=== PATIENT | female | born 1950 | race Caucasian/White ===

== ENCOUNTER 2020-12-25 11:42 | Outpatient (CLI) | payer MEDICARE, OTHER, SELFPAY ==
--- NOTE | 2020-12-25 11:52 | XR_ITS ---
WS: [id number] PROCEDURE: XR chest 2V* [id number] CLINICAL INFORMATION: COUGH COMPARISON: None. FINDINGS: Heart: Cardiomegaly. Lungs: Hyperinflation. Moderate chronic emphysematous changes. Aortic calcification. Tortuous thoraci c aorta. No acute pulmonary infiltrates. Bones: Mild thoracic curve convex left. Mild thoracic kyphosis. Postoperative changes cervical thorac ic junction. XR/XR chest 2V* [id number] IMPRESSION: 1. Moderate chronic emphysematous changes with hyperinflation. 2. No acute pulmonary infiltrates. 3. Cardiomegaly. 4. Mild thoracic curve with mild thoracic kyphosis.
== END 2020-12-25 11:43 | disposition home or self-care (01) ==
PROVIDERS: Visit Provider Family Medicine
DX: R05 Cough (principal); I51.7 Cardiomegaly; M40.294 Other kyphosis, thoracic region
CPT/HCPCS: 71046

== ENCOUNTER 2021-02-03 13:06 | Outpatient (CLI) | payer MEDICARE, OTHER, SELFPAY ==
--- NOTE | 2021-02-03 13:11 | XR_ITS ---
WS: [id number] FOOT LEFT TECHNIQUE: 3 views of the left foot CLINICAL INFORMATION: PAIN IN LEFT ANKLE AND JOINTS OF LEFT FOOT COMPARISON: None. FINDINGS: Osteopenia. Normal metatarsals. Mild degenerative narrowing IP joints. Normal navicular. Mild soft ti ssue edema. Slight lucency at the base of the fifth metatarsal suspicious for tiny nondisplaced fract ure. XR/XR foot LT min 3V* [id number] IMPRESSION: Mild soft tissue edema. Suggestion of a tiny nondisplaced fracture at the base of the fifth metatarsal. Recommend interval follow-up.
--- NOTE | 2021-02-03 13:11 | XR_ITS ---
WS: [id number] ANKLE LEFT TECHNIQUE: 3 views of the left ankle CLINICAL INFORMATION: PAIN IN LEFT ANKLE AND JOINTS OF LEFT FOOT COMPARISON: None. FINDINGS: Diffuse moderate soft tissue edema. Soft tissue edema worse about the lateral malleolus. Normal media l and lateral malleolus. Normal talar dome. XR/XR ankle LT min 3V* [id number] IMPRESSION: 1. Soft tissue edema worse about the lateral malleolus. No acute ankle fractur es. 2. Nondisplaced fracture base of the fifth metatarsal as described on the foot radiograph
== END 2021-02-03 13:07 | disposition home or self-care (01) ==
PROVIDERS: Visit Provider Family Medicine
DX: R60.0 Localized edema (principal); S92.355A Nondisplaced fracture of fifth metatarsal bone, left foot, initial encounter for closed fracture; X58.XXXA Exposure to other specified factors, initial encounter
CPT/HCPCS: 73610; 73630

== ENCOUNTER → 2022-02-25 10:01 | Outpatient (BNVA) | payer MEDICARE, OTHER, SELFPAY | PROVIDERS: PCP Family Medicine; Referring Provider Family Medicine; Visit Provider Podiatrist Foot & Ankle Surgery | DX: M76.62 Achilles tendinitis, left leg (principal); M79.672 Pain in left foot; M92.62 Juvenile osteochondrosis of tarsus, left ankle; M72.2 Plantar fascial fibromatosis | CPT/HCPCS: 73630; 99204 ==

== ENCOUNTER → 2024-10-02 11:14 | Outpatient (BNVA) | payer MEDICARE, OTHER, SELFPAY | PROVIDERS: PCP Family Medicine; Visit Provider Family Medicine | DX: I10 Essential (primary) hypertension (principal); E78.00 Pure hypercholesterolemia, unspecified; E55.9 Vitamin D deficiency, unspecified; E53.8 Deficiency of other specified B group vitamins; E87.1 Hypo-osmolality and hyponatremia; N18.32 Chronic kidney disease, stage 3b; D63.1 Anemia in chronic kidney disease | CPT/HCPCS: 80053; 82306; 82607; 83540; 84439; 84443; 85025 ==

== ENCOUNTER 2025-07-02 14:00 | Outpatient (CLI) | payer MEDICARE, SELFPAY | END 2025-07-02 14:01 | disposition home or self-care (01) | PROVIDERS: PCP Family Medicine; Visit Provider Family Medicine | DX: R41.82 Altered mental status, unspecified (principal); E87.1 Hypo-osmolality and hyponatremia; N18.32 Chronic kidney disease, stage 3b; I10 Essential (primary) hypertension | CPT/HCPCS: 80053; 81000; 84439; 84443; 85025; 87086 ==

== ENCOUNTER 2025-07-05 16:58 | Emergency (ER) | payer MEDICARE, SELFPAY ==
--- OUTSIDE RECORDS SUMMARY | 2025-06-28 23:20 | XMS_ITS | Encounter Summary ---
Author Organization [facility] Address [address] [place] [address] Care Team Providers Care Tail Edger Name Role Phone Unavailable Primary Care Provider Unavailabl e Encounter Details Date Type Department Care Team (Latest Contact Info) Description 06/29/2025 12:20 AM CDT - 06/29/2025 11:59 PM CDT Hospital Encounter [facility] Emergency Medical Services [address] [phone] Ambulance, [address] [address] Discharge Disposition: Home or Self Care Social History Tobacco Use Types Packs/Day Years Used Date Smoking Tobacco: Never Assessed Comments Unknown Sex and Gender Information Value Date Recorded Sex Assigned at Not on file 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
[2025-07-05 17:03] VITALS: BP 141/92; PULSE 97; RESP 17; TEMP 36.4; O2SAT 94; BMI 24.7
--- OUTSIDE RECORDS SUMMARY | 2025-07-05 17:06 | XMS_ITS | Clinical Summary ---
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
--- OUTSIDE RECORDS SUMMARY | 2025-07-05 17:06 | XMS_ITS | Clinical Summary ---
Author Organization [facility] Address [address] [address] Phone Care Team Providers Care Fishing Rod Assembler Name Role Phone Unavailable Primary Care Provider Unavailabl e Encounters Date Type Department Care Team Description 06/29/2025 12:20 AM CDT - 06/29/2025 11:59 PM CDT Hospital Encounter [facility] Emergency Medical Services [address] [phone] Ambulance, [facility] Discharge Disposition: Home or Self Care from Last 3 Months Social History Tobacco Use Types Packs/Day Years Used Date Smoking Tobacco: Never Assessed Comments Unknown Sex and Gender Information Value Date Recorded Sex Assigned at Not on file 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 Gender Identity Not on file Sexual Orientation Not on file Plan of Treatment Health Maintenance Due Date Last Done Comments DTAP/TDAP/TD VACCINES (1 - Tdap) 1969 BREAST CANCER SCREENING 1990 COLORECTAL SCREENING 1995 Colorectal Cancer Screening 1995 FIT-DNA Q 3 years 1995 FIT/FOBT Q 1 year 1995 Flex Sig/CT Colonography Q 5 years 1995 PNEUMOCOCCAL VACCINE 50+ YEA RS (1 of 1 - PCV) 2000 ZOSTER VACCINE (1 of 2) 2000 OSTEOPOROSIS SCREENING 2015 [place] Prev entative Visit/Annual Wellness Visit 08/30/2024 INFLUENZA VACCINE (#1) 2025 COVID-19 Vaccine ( season) 2025, 10/30/2020 RSV VACCINE (60+ or ) (1 - 1-dose 75+ series) 2025 Insurance [facility] [place] [address] [facility]
--- OUTSIDE RECORDS SUMMARY | 2025-07-05 17:06 | XMS_ITS | Encounter Summary ---
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
--- NOTE | 2025-07-05 18:18 | W.ED.WEAKNES ---
HPI - Weakness General: Chief complaint: Weakness Stated complaint: lethargy / incontinent Time Seen by Provider: 07/05/25 18:00 History of Present Illness: 74-year-old female with a history of chronic kidney disease, dementia, COPD, depression and hypertension who presents emergency room with concerns for generalized weakness and some mild confusion over her baseline. says she does have some dementia at baseline but has been having some staring spells lately. They tried to get lab at clinic but could not get it and they felt that she was dehydrated so sent her to the emergency room. No fevers. No vomiting. No focal motor deficits. Related Data Home Medications ?Medication ?Instructions ?Recorded ?Confirmed albuterol sulfate 90 mcg/actuation 2 puff inhalation Q6H PRN 02/25/22 07/02/25 aerosol inhaler (Ventolin HFA) alprazolam 0.5 mg tablet 0.5 mg PO DAILY 02/25/22 07/02/25 fluticasone fur. 100 mcg-umeclid 1 inh inhalation DAILY 02/25/22 07/02/25 62.5 mcg-vilant 25 mcg inhalat.powder (Trelegy Ellipta) magnesium gluconate 500 mg tablet 500 mg PO TID 02/25/22 07/02/25 Previous Rx's ?Medication ?Instructions ?Recorded cyclobenzaprine 10 mg tablet See Rx Instructions .Route 08/26/24 .COMPLEX #90 tabs atorvastatin 10 mg tablet 10 mg PO QDAY #90 tabs 12/18/24 aripiprazole 2 mg tablet 2 mg PO DAILY #90 tabs 01/08/25 omeprazole 40 mg capsule,delayed See Rx Instructions .Route 01/19/25 release .COMPLEX #90 caps vitamin D3 125 mcg (5,000 1 cap PO DAILY #90 caps 02/15/25 unit)-vitamin K2 100 mcg capsule amlodipine 5 mg tablet 5 mg PO DAILY #90 tabs 02/26/25 Held on 06/12/25. Instructions: Guidelines gabapentin 600 mg tablet 600 mg PO TID #270 tabs 03/05/25 hydrochlorothiazide 12.5 mg tablet 12.5 mg PO DAILY #90 tabs 03/05/25 venlafaxine 75 mg tablet 225 mg (3 x 75 mg) PO DAILY #90 04/23/25 tabs hydrocodone 10 mg-acetaminophen 1 tab PO Q6H PRN pain (scale score 05/24/25 325 mg tablet 7-10) 30 days #120 tabs metoprolol tartrate 50 mg tablet 25 mg (1/2 x 50 mg) PO BID #90 tabs 05/25/25 cefdinir 300 mg capsule 300 mg PO BID 10 days #20 caps 07/02/25 Allergies Allergy/AdvReac Type Severity Reaction Status Date / Time Sulfa (Sulfonamide Allergy Mild Dizzy Verified 07/02/25 11:27 Antibiotics) Latex, Natural Rubber Allergy ADR/ALGY-Fl Verified 07/02/25 11:27 ushing Review of Systems Narrative: Constitutional symptoms: Negative except as documented in HPI. Skin symptoms: Negative except as documented in HPI. Eye symptoms: Negative except as documented in HPI. ENMT symptoms: Negative except as documented in HPI. Respiratory symptoms: Negative except as documented in HPI. Cardiovascular symptoms: Negative except as documented in HPI. Gastrointestinal symptoms: Negative except as documented in HPI. Genitourinary symptoms: Negative except as documented in HPI. Musculoskeletal symptoms: Negative except as documented in HPI. Neurologic symptoms: Negative except as documented in HPI. Psychiatric symptoms: Negative except as documented in HPI. Endocrine symptoms: Negative except as documented in HPI. PFSH ED PFSH: Medical History (Updated 07/05/25 @ 20:00 by Shanae Nichols MD) Vitamin D deficiency DJD (degenerative joint disease), cervical DDD (degenerative disc disease), thoracic Vitamin B12 deficiency CKD stage 3b, GFR 30-44 ml/min Anemia in chronic kidney disease Anxiety Nicotine dependence, cigarettes, uncomplicated Chronic gastritis without bleeding Hypomagnesemia COPD (chronic obstructive pulmonary disease) Hyponatremia Encounter for chronic pain management legacy patient from pain clinic; on hydrocodone for chronic back pain Chronic lower back pain DDD w/ peripheral neuropathy Pain management contract signed Major depression, chronic Hypercholesteremia HTN (hypertension) Surgical History History of rectal surgery 8.16 for rectal prolapse Hx of colonoscopy with polypectomy 7.7.22 tubular adenoma--f/u 5 yrs--Dr. Julian Parikh Hx of cervical spine surgery anterior cervical fusion 2008 Hx of total hysterectomy with removal of both tubes and ovaries Hx of appendectomy Family History Sister Rheumatoid arthritis Grandmother Colon cancer Social History Smoking and tobacco/nicotine status: current every day tobacco/nicotine user cigarettes Packs smoked per day: 1 Quit status (tobacco/nicotine): not considering quitting Second hand smoke exposure: Yes Alcohol intake: never Substance/Drug Use: never Household members: spouse and other Details: granddaughter Housing: House Marital status: Marital status details: no living children--son in MVA; daughter of COVID Number of children: 2 Highest education level completed: High School Graduate Current occupational status: retired 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 Skin: Warm, dry. Head: Normocephalic, atraumatic. Neck: Supple, trachea midline. Eye: Extraocular movements are intact. Ears, nose, mouth and throat: mucosa moist. Cardiovascular: Regular, Normal peripheral perfusion. Respiratory: Lungs are clear to auscultation, respirations are non-labored, breath sounds are equal, Symmetrical chest wall expansion. Gastrointestinal: Soft, Nontender, Non distended Musculoskeletal: Normal ROM, no deformity. Neurological: Alert and oriented, No focal neurological deficit observed. Psychiatric: Cooperative, appropriate mood & affect. Course Vital Signs: Vital signs: Vital Signs Temperature 97.6 F 07/05/25 17:03 Pulse Rate 97 07/05/25 17:03 Respiratory Rate 17 07/05/25 17:03 Blood Pressure 141/92 07/05/25 17:03 Pulse Oximetry 94 07/05/25 17:03 Oxygen Delivery Me thod Room Air 07/05/25 17:03 MDM - Weakness Medical Decision Making Medical decision making: Patient's reason for coming to the emergency room generalized weakness Social determinants retired, I reviewed the patient's medical record. 74-year-old female with a history of chronic kidney disease, dementia, COPD, depression and hypertension I reviewed the patient's current home meds Alternate historians: provides most of the history. Differential diagnosis for patient presenting with generalized weakness including but not limited to and based on the above HPI, review of systems and physical exam: Sepsis. Dehydration. Renal failure. Electrolyte abnormalities. Anemia. Congestive heart failure. Hypotension. Coronary syndrome. Hepatitis. Cirrhosis. Infections such as pneumonia, urinary tract infection, [place]ick bourne illness, Cellulitis, Viral infections including influenza and Covid-19. Workup: labwork and lab/exam driven imaging ordered to evaluate, rule in and rule out above pathologies. CT head: No acute intracranial process. No intracranial hemorrhage, no evidence of infarct. No evidence of acute fracture. This was reviewed and interpreted by myself the emergency room physician. I also reviewed the radiology report. Lab Review: Laboratory results were reviewed and interpreted by myself the emergency room physician. Mild leukocytosis. No anemia. BUN and creatinine are at 32 and 1.8 which is slightly above her baseline which normally runs around 1.42 1.5. Assessment of risk: Level of risk: Moderate risk. Multiple comorbidities and age. Reexamination: Patient remained stable. No increased work of breathing. No altered mental status. No focal motor deficits. is comfortable with taking her home after fluids. Assessment and plan: Dehydration Dementia ? 1 L normal saline bolus in the emergency room. - Discharged home - Discussed plan with patient. Answered any questions. - Evaluation and treatment of this problem were appropriate in the emergency setting. Lab Data 07/05/25 18:35 07/05/25 18:[address] 07/05/25 18:32 IMPRESSION: No acute intracranial abnormality. Laboratory Results WBC 13.14 10^3/uL (3.29-11.43) H 07/05/25 18:35 RBC 5.60 10^6/uL (3.85-5.65) 07/05/25 18:35 Hgb 16.30 g/dL (11.27-16.99) 07/05/25 18:35 Hct 48.2 % (36-47) H 07/05/25 18:35 MCV 86.1 fl (85-98) 07/05/25 18:35 MCH 29.1 pg (27-33) 07/05/25 18:35 MCHC 33.8 g/dL (30-55) 07/05/25 18:35 RDW 13.1 % (12.1-15.1) 07/05/25 18:35 Plt Count 276 10^3/cmm (157-399) 07/05/25 18:35 MPV 11.5 fL (7.4-10.4) H 07/05/25 18:35 Neut % (Auto) 74.7 % 07/05/25 18:35 Lymph % (Auto) 17.0 % 07/05/25 18:35 [place] % (Auto) 6.8 % 07/05/25 18:35 Eos % (Auto) 0.5 % 07/05/25 18:35 Baso % (Auto) 0.6 % 07/05/25 18:35 Neut # (Auto) 9.81 10^3/uL (1.8-7.7) H 07/05/25 18:35 Lymph # (Auto) 2.2 10^3/uL (0.8-4.8) 07/05/25 18:35 [place] # (Auto) 0.9 10^3/uL (0.2-0.9) 07/05/25 18:35 Eos # (Auto) 0.1 10^3/uL (0.0-0.8) 07/05/25 18:35 Baso # (Auto) 0.1 10^3/uL (0.0-0.1) 07/05/25 18:35 Nucleated RBC % (auto) 0 % 07/05/25 18:35 Nucleated RBCs # 0.0 /100WBC 07/05/25 18:35 Sodium 136 mmol/L (136-145) 07/05/25 18:35 Potassium 3.7 mmol/L (3.5-5.1) 07/05/25 18:35 Chloride 93 mmol/L (98-107) L 07/05/25 18:35 Carbon Dioxide 25 mmol/L (22-29) 07/05/25 18:35 Anion Gap 21.7 (5-19) H 07/05/25 18:35 BUN 32 mg/dL (8-23) H 07/05/25 18:35 Creatinine 1.8 mg/dL (0.5-0.9) H 07/05/25 18:35 GFR Calculation Not Reportable 07/05/25 18:35 Glucose 105 mg/dL (65-115) 07/05/25 18:35 Calculated Osmolality 289 mOsm/kg (285-295) 07/05/25 18:35 Lactic Acid 1.8 mmol/L (0.5-2.2) 07/05/25 18:35 Calcium 10.8 mg/dL (8.5-10.5) H 07/05/25 18:35 Total Bilirubin 0.8 mg/dL (0.15-1.2) 07/05/25 18:35 AST 18 U/L (0-32) 07/05/25 18:35 ALT 11 U/L (0-33) 07/05/25 18:35 Alkaline Phosphatase 124 U/L (35-105) H 07/05/25 18:35 C-Reactive Protein 75.8 mg/L (0.0-4.9) H 07/05/25 18:35 Total Protein 7.8 g/dL (6.6-8.7) 07/05/25 18:35 Albumin 4.5 g/dL (3.5-5.2) 07/05/25 18:35 Globulin 3.3 g/dL (1.3-4.6) 07/05/25 18:35 Urine Color Yellow (Yellow) 07/05/25 18:45 Urine Appearance Clear (CLEAR) 07/05/25 18:45 Urine pH 5.5 (5-7) 07/05/25 18:45 Ur Specific [place] 1.022 (1.005-1.030) 07/05/25 18:45 Urine Protein 1+ (Negative) A 07/05/25 18:45 Urine Glucose (UA) Negative (Normal) 07/05/25 18:45 Urine Ketones Trace (Negative) 07/05/25 18:45 Urine Blood Negative (Negative) 07/05/25 18:45 Urine Nitrate Negative (Negative) 07/05/25 18:45 Urine Bilirubin Negative (Negative) 07/05/25 18:45 Urine Urobilinogen 1.0 mg/dL (Negative) 07/05/25 18:45 Ur Leukocyte Esterase Negative (Negative) 07/05/25 18:45 Urine RBC 0-2 /hpf (0-2) 07/05/25 18:45 Urine WBC 0-5 /hpf (0-5) 07/05/25 18:45 Ur Squamous Epith Cells 0-5 /hpf (0-5) 07/05/25 18:45 Amorphous Sediment Not Reportable 07/05/25 18:45 Urine Bacteria None seen /hpf (NONE) 07/05/25 18:45 Hyaline Casts 27.28 /lpf 07/05/25 18:45 Influenza A (PCR) Negative (Negative) 07/05/25 18:37 Influenza Type B (PCR) Negative (Negative) 07/05/25 18:37 RSV (PCR) Negative (Negative) 07/05/25 18:37 SARS-CoV-2 (PCR) Negative (Negative) 07/05/25 18:37 All radiology interpretation(s) finalized by discharge Discharge Plan Discharge Patient Disposition: Home Clinical Impression: Weakness, Dehydration, Dementia Condition: Stable Prescriptions: No Action vitamin D3-vitamin K2 125 mcg (5,000 unit)-100 mcg capsule 1 cap PO DAILY Qty: 90 3RF cefdinir 300 mg capsule 300 mg PO BID 10 Days Qty: 20 0RF alprazolam 0.5 mg tablet 0.5 mg PO DAILY magnesium gluconate 500 mg tablet 500 mg PO TID Trelegy Ellipta 100-62.5-25 mcg blister with device 1 inh inhalation DAILY albuterol sulfate [Ventolin HFA] 90 mcg/actuation HFA aerosol inhaler 2 puff inhalation Q6H PRN cyclobenzaprine 10 mg tablet See Rx Instructions .ROUTE .COMPLEX Qty: 90 3RF Dose Instruction: TAKE 1 TABLET AT BEDTIME NEEDED MUSCLE SPASMS Rx Instructions: TAKE 1 TABLET AT BEDTIME NEEDED MUSCLE SPASMS atorvastatin 10 mg tablet 10 mg PO QDAY Qty: 90 2RF aripiprazole 2 mg tablet 2 mg PO DAILY Qty: 90 3RF omeprazole 40 mg capsule,delayed release(DR/EC) See Rx Instructions .ROUTE .COMPLEX Qty: 90 3RF Dose Instruction: TAKE 1 CAPSULE BY MOUTH DAILY Rx Instructions: TAKE 1 CAPSULE BY MOUTH DAILY amlodipine 5 mg tablet 5 mg PO DAILY Qty: 90 3RF hydrochlorothiazide 12.5 mg tablet 12.5 mg PO DAILY Qty: 90 3RF gabapentin 600 mg tablet 600 mg PO TID Qty: 270 3RF venlafaxine 75 mg tablet 225 mg PO DAILY Qty: 90 3RF hydrocodone-acetaminophen 10-325 mg tablet 1 tab PO Q6H PRN (Reason: pain (scale score 7-10)) 30 Days Qty: 120 0RF metoprolol tartrate 50 mg tablet 25 mg PO BID Qty: 90 3RF Discharge Orders: Discharge ED (Routine); Ordered 07/05/25 Ordered By: Shanae Nichols Referrals: Marizol Rivera MD [Primary Care Provider, Family Practice] Discharge Diet: Usual diet Discharge Activity: Increase activity as tolerated Patient Instructions: Dehydration (ED), Opioid Safety, Pain Management, Patient Portal & Lex Instructions Activity Restrictions/Additional Instructions: Thank you for choosing [facility] for your healthcare needs today. You have been screened and evaluated and felt safe for discharge. Health conditions do change or evolve sometimes and as such it is important that you follow up with your Primary Doctor to be re checked, 3-5 days is a general good time frame for follow up. You are always welcome to return to the ED for re assessment if your symptoms are worsening or you have new concerns Print Language: Peruvian Coding Level of Care Code ED Fire Fighting Equipment Specialist for Randa Sam
--- NOTE | 2025-07-05 18:32 | CTR_ITS ---
PROCEDURE INFORMATION: Exam: CT Head Without Contrast Exam date and time: 07/05/2025 7:25 PM Age: 74 years old Clinical indication: Altered mental status/memory loss and weakness, extremity; Confusion or disorientation; PT reports PT has been intermittently confused since Wednesday. PT has also had little intake since Wednesday. TECHNIQUE: Imaging protocol: Computed tomography of the head without contrast. Radiation optimization: All CT scans at this facility use at least one of these dose optimization techniques: automated exposure control; mA and/or kV adjustment per patient size (includes targeted exams where dose is matched to clinical indication); or iterative reconstruction. COMPARISON: No relevant prior studies available. RADIATION DOSE METRICS: Total DLP (mGy-cm): 977.08 FINDINGS: Brain: Basal cisterns are patent. No hemorrhage, mass effect or extra-axial collection. Scattered hypodensities in the subcortical, deep and periventricular white matter which is nonspecific but can be seen in microangiopathic ischemic changes. Calcification of the pineal gland. No acute intracranial abnormality. Cerebral ventricles: No ventriculomegaly. Paranasal sinuses: Small retention cyst in the left posterior ethmoid sinus otherwise the paranasal sinuses are well pneumatized. Mastoid air cells: Visualized mastoid air cells are well aerated. Orbital cavities: Evidence of bilateral cataract surgery. Bones: Unremarkable. No acute fracture. Soft tissues: Unremarkable. Vasculature: Carotid siphon calcifications. CT/CT head wo con* [id number] IMPRESSION: No acute intracranial abnormality.
[2025-07-05 18:56] LABS: Hematocrit 48.2 % (36-47); Hemoglobin 16.30 g/dL (11.27-16.99); Mean Corpuscular HGB Conc 33.8 g/dL (30-55); Mean Corpuscular Hemoglobin 29.1 pg (27-33); Mean Corpuscular Volume 86.1 fl (85-98); Nucleated Red Blood Cells % 0 %; Platelet Count 276 10^3/cmm (157-399); Red Blood Count 5.60 10^6/uL (3.85-5.65); White Blood Count 13.14 10^3/uL (3.29-11.43)
[2025-07-05 18:58] LABS: Glucose Urine UA Negative (Normal); Nitrate Urine Negative (Negative); Specific Gravity, Urine 1.022 (1.005-1.030)
[2025-07-05 19:12] LABS: Alanine Aminotransferase 11 U/L (0-33); Albumin Level 4.5 g/dL (3.5-5.2); Alkaline Phosphatase 124 U/L (35-105); Blood Urea Nitrogen 32 mg/dL (8-23); Calcium 10.8 mg/dL (8.5-10.5); Carbon Dioxide 25 mmol/L (22-29); Chloride 93 mmol/L (98-107); Creatinine Clr Calc Pharmacy 24.6049; Globulin 3.3 g/dL (1.3-4.6); Glucose 105 mg/dL (65-115); Osmolality Calculated 289 mOsm/kg (285-295); Sodium 136 mmol/L (136-145); Total Protein 7.8 g/dL (6.6-8.7)
[2025-07-05 19:14] LABS: Lactic Sepsis W/Reflex 1.8 mmol/L (0.5-2.2)
[2025-07-05 19:15] LABS: Anion Gap 21.7 (5-19); Aspartate Amino Transferase 18 U/L (0-32); Potassium 3.7 mmol/L (3.5-5.1)
[2025-07-05 19:19] LABS: Slide Review Slide Review Perform
[2025-07-05 19:33] LABS: Respiratory Syncytial Virus Ce NEGATIVE (Negative); SARS-CoV-2 PCR NEGATIVE (Negative)
[2025-07-05 20:58] VITALS: BP 178/119; PULSE 111; RESP 18; O2SAT 95
[2025-07-05 21:40] VITALS: BP 163/96; PULSE 87; RESP 16; O2SAT 93
[2025-07-05 22:22] VITALS: BP 139/96; PULSE 98; RESP 16; O2SAT 95
== END 2025-07-05 22:22 | disposition home or self-care (01) ==
PROVIDERS: Emergency Provider Emergency Medicine; PCP Family Medicine
DX: R53.1 Weakness (principal); E86.0 Dehydration; F03.90 Unspecified dementia, unspecified severity, without behavioral disturbance, psychotic disturbance, mood disturbance, and anxiety; Z11.52 Encounter for screening for COVID-19; F17.210 Nicotine dependence, cigarettes, uncomplicated; J44.9 Chronic obstructive pulmonary disease, unspecified; I12.9 Hypertensive chronic kidney disease with stage 1 through stage 4 chronic kidney disease, or unspecified chronic kidney disease; N18.32 Chronic kidney disease, stage 3b
CPT/HCPCS: 70450; 80053; 81001; 83605; 85025; 86140; 87040; 87637; 99284; J7030

== ENCOUNTER 2025-08-08 11:41 | Inpatient (IN) | payer MEDICARE, SELFPAY ==
[2025-08-08] VITALS (104 sets, daily range): BP systolic 132–171; BP diastolic 86–131; PULSE 87–131; RESP 14–32; TEMP 35.8–36.3; O2SAT 83–98
--- NOTE | 2025-08-08 11:51 | PC.NURSE ---
BG 80 at time of triage
--- NOTE | 2025-08-08 12:07 | ECG_ITS ---
[facility]08 Pat Name: Karina Estes Department: Room: Gender: Female Local Delivery Driver: : [id number] Requested By: John Arango Order Number: [id number] Cooper MD: Humble Patiño M.D. Measurements Intervals Reese Rate: 108 P: 0 WV: 0 QRS: 72 QRSD: 137 T: 245 QT: 404 QTc: 544 Interpretive Statements ATRIAL FIBRILLATION WITH RAPID VENTRICULAR RESPONSE INTRAVENTRICULAR CONDUCTION DELAY [130+ ms QRS DURATION] No previous ECG available for comparison Electronically Signed On 08-09-2025 17:29:18 GLASS WASHER AND CARRIER by Humble Patiño M.D. [email or web address]
--- NOTE | 2025-08-08 12:07 | XR_ITS ---
WS: [id number] XR chest 1V portable [id number] REASON FOR EXAM: syncopa FINDINGS: Mild tortuosity of the thoracic aorta. Increased opacity in both lower hemithoraces which appears to be secondary to bilateral pleural effusions and atelectasis. There may be underlying reticular interstitial lung opacities and mild peribronchial cuffing. Mild degenerative spondylosis in the thoracic spine. XR/XR chest 1V portable [id number] IMPRESSION: Probable bilateral pleural effusion and atelectasis in both lower lobes. There may be additional underlying lung abnormality i.e. pulmonary edema or less like ly pneumonitis.
--- NOTE | 2025-08-08 12:50 | CT_ITS ---
WS: [id number] CT CERVICAL SPINE HISTORY: trauma TECHNIQUE: Contiguous 2.0 mm axial imaging performed through the entire cervical spine. Sagittal and coronal reformats also performed. All CT scans at [facility] use at least one of these dose optimization techniques: automated exposure control; mA and/or kV adjustment per patient size (includes targeted exams where dose is matched to clinical indication); or iterative reconstruction. DLP: 172.57 mGy.cm COMPARISON: None available. Mild curvature and straightening of the cervical lordosis. Anterior cervical fusion with interbody spacer is fused at C5-6. Facet joints are normally aligned. Lateral masses of C1 and C2 are aligned. No cervical spine fracture identified. Moderate foraminal stenosis due to osteophytosis at C6-7. Mild LEFT foraminal stenosis at C4-5 due to osteophyte. Central disc protrusions at C2-3 through C4-5. Calcification in the LEFT vertebral artery at the C4 level. Facet joints are normally aligned. Lung apices are clear. CT/CT cervical spin wo con* [id number] IMPRESSION: 1. No acute cervical spine fracture. 2. Anterior cervical fusion with interbody spacer at C5-6 is intact. 3. Moderate bilateral foraminal stenosis at C6 6 7 and mild on the LEFT at C4- 5.
[2025-08-08 13:06] LABS: Hematocrit 36.3 % (36-47); Hemoglobin 11.40 g/dL (11.27-16.99); Mean Corpuscular HGB Conc 31.4 g/dL (30-55); Mean Corpuscular Hemoglobin 28.8 pg (27-33); Mean Corpuscular Volume 91.7 fl (85-98); Nucleated Red Blood Cells % 0.5 %; Platelet Count 348 10^3/cmm (157-399); Red Blood Count 3.96 10^6/uL (3.85-5.65); White Blood Count 21.18 10^3/uL (3.29-11.43)
[2025-08-08 13:20] LABS: Alanine Aminotransferase 44 U/L (0-33); Albumin Level 3.7 g/dL (3.5-5.2); Alkaline Phosphatase 141 U/L (35-105); Anion Gap 41.0 (5-19); Aspartate Amino Transferase 74 U/L (0-32); Calcium 9.2 mg/dL (8.5-10.5); Chloride 90 mmol/L (98-107); Globulin 2.9 g/dL (1.3-4.6); Glucose 78 mg/dL (65-115); Osmolality Calculated 303 mOsm/kg (285-295); Sodium 133 mmol/L (136-145); Total Protein 6.6 g/dL (6.6-8.7)
[2025-08-08 13:31] LABS: Blood Urea Nitrogen 91 mg/dL (8-23); Carbon Dioxide 9 mmol/L (22-29); Potassium 7.0 mmol/L (3.5-5.1)
--- NOTE | 2025-08-08 13:41 | CT_ITS ---
WS: [id number] CT ABDOMEN AND PELVIS NONCONTRAST HISTORY: Acute renal failure TECHNIQUE: Imaging performed through the abdomen and pelvis. Coronal and sagittal reformats are submitted. All CT scans at [facility] use at least one of these dose optimization techniques: automated exposure control; mA and/or kV adjustment per patient size (includes targeted exams where dose is matched to clinical indication); or iterative reconstruction. DLP: 472.84 mGy.cm COMPARISON: None available. Lower thorax: Small bilateral pleural effusions. Emphysematous changes at the lung bases. Cardiomegaly. Moderate size hiatal hernia. Liver: Normal size liver. No mass or bile duct dilatation. Gallbladder: Normal gallbladder. No pericholecystic fluid or cholelithiasis. No gallbladder wall thickening. Pancreas: Diffuse pancreatic atrophy. Mild stranding adjacent to the pancreas may be related to breathing motion artifact. Spleen: Normal size with granuloma. Adrenal glands: Normal. No mass. Right kidney: Normal size kidney. Mild perinephric stranding. No obstruction. Left kidney: Severe atrophy LEFT kidney. No obstruction. Mild perinephric stranding. Aorta: Moderate to severe atherosclerosis abdominal aorta. Mild dilatation of the abdominal aorta to 2.7 cm. Atherosclerosis continues into the common iliac arteries. There is a small amount of free fluid in the pelvis. GI tract: No GI tract obstruction. The appendix is not identified and may have been surgically removed. No significant diverticular disease. Abdominal wall: Thinning of the abdominal wall musculature. Bilateral inguinal hernias containing fat only. Pelvis: Small amount of free fluid in the pelvis of uncertain etiology. Prior hysterectomy. Osseous structures: Osteopenia. Degenerative disc disease at L4-5. CT/CT kidney stone 08170 IMPRESSION: 1. Small bilateral pleural effusions. 2. Cardiomegaly. 3. Perinephric stranding around each kidney. No renal obstruction. Correlate f or possible urinary tract infection. 4. Severe atrophy LEFT kidney. 5. Small amount of free fluid in the pelvis. 6. No evidence for colitis. No GI tract obstruction.
--- NOTE | 2025-08-08 14:02 | W.ED.RECABL ---
HPI - Recheck/Abnormal Lab/Rx General: Chief Complaint: Recheck/Abnormal Lab/Rx Stated Complaint: AMS, Fall Time Seen by Provider: 08/08/25 11:53 History of Present Illness: 74-year-old female presents to the emergency room with multiple recent falls. Her is with her reports that she has been more altered recently. Has multiple bruises from falls. Patient has known history of chronic kidney disease at baseline and severe dementia. She also has a history of A-fib with RVR. She is not currently on any anticoagulants. She is not able to contribute to history all history as per the . Related Data Home Medications ?Medication ?Instructions ?Recorded ?Confirmed cyclobenzaprine 10 mg tablet 10 mg PO BEDTIME PRN muscle spasms 08/08/25 08/08/25 omeprazole 40 mg capsule,delayed 40 mg PO DAILY 08/08/25 08/08/25 release Previous Rx's ?Medication ?Instructions ?Recorded atorvastatin 10 mg tablet 10 mg PO QDAY #90 tabs 12/18/24 aripiprazole 2 mg tablet 2 mg PO DAILY #90 tabs 01/08/25 vitamin D3 125 mcg (5,000 1 cap PO DAILY #90 caps 02/15/25 unit)-vitamin K2 100 mcg capsule amlodipine 5 mg tablet 5 mg PO DAILY #90 tabs 02/26/25 Held on 06/12/25. Instructions: Guidelines gabapentin 600 mg tablet 600 mg PO TID #270 tabs 03/05/25 hydrochlorothiazide 12.5 mg tablet 12.5 mg PO DAILY #90 tabs 03/05/25 venlafaxine 75 mg tablet 225 mg (3 x 75 mg) PO DAILY #90 04/23/25 tabs metoprolol tartrate 50 mg tablet 25 mg (1/2 x 50 mg) PO BID #90 tabs 05/25/25 hydrocodone 10 mg-acetaminophen 1 tab PO Q6H PRN pain (scale score 07/09/25 325 mg tablet 7-10) 30 days #120 tabs Allergies Allergy/AdvReac Type Severity Reaction Status Date / Time Sulfa (Sulfonamide Allergy Mild Dizzy Verified 07/16/25 15:14 Antibiotics) Latex, Natural Rubber Allergy ADR/ALGY-Fl Verified 07/16/25 15:14 ushing Review of Systems General: Reports: ROS unobtainable due to mental status PFSH ED PFSH: Medical History Vitamin D deficiency DJD (degenerative joint disease), cervical DDD (degenerative disc disease), thoracic Vitamin B12 deficiency CKD stage 3b, GFR 30-44 ml/min Anemia in chronic kidney disease Anxiety Nicotine dependence, cigarettes, uncomplicated Chronic gastritis without bleeding Hypomagnesemia COPD (chronic obstructive pulmonary disease) Hyponatremia Encounter for chronic pain management legacy patient from pain clinic; on hydrocodone for chronic back pain Chronic lower back pain DDD w/ peripheral neuropathy Pain management contract signed Major depression, chronic Hypercholesteremia HTN (hypertension) Surgical History History of rectal surgery 8.16 for rectal prolapse Hx of colonoscopy with polypectomy 7.7.22 tubular adenoma--f/u 5 yrs--Dr. Julian Parikh Hx of cervical spine surgery anterior cervical fusion 2008 Hx of total hysterectomy with removal of both tubes and ovaries Hx of appendectomy Family History Sister Rheumatoid arthritis Grandmother Colon cancer Social History Smoking and tobacco/nicotine status: current every day tobacco/nicotine user cigarettes Packs smoked per day: 1 Quit status (tobacco/nicotine): not considering quitting Second hand smoke exposure: Yes Alcohol intake: never Substance/Drug Use: never Household members: spouse and other Details: granddaughter Housing: House Marital status: Marital status details: no living children--son in MVA; daughter of COVID Number of children: 2 Highest education level completed: High School Graduate Current occupational status: retired 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 Physical Exam HENMT: COMMON NORMALS: normocephalic, atraumatic and hearing grossly normal bilaterally HEAD & SCALP: normocephalic and atraumatic Resp: COMMON NORMALS: normal respiratory effort, No retractions, No use of accessory muscles and clear to auscultation bilaterally AUSCULTATION: clear to auscultation bilaterally Cardio: COMMON NORMALS: regular rate, regular rhythm and No murmurs present (Cardio) RATE: regular rate RHYTHM: regular rhythm GI: COMMON NORMALS: Soft to palpation and No hepatosplenomegaly present AUSCULTATION: Yes normoactive bowel sounds PALPATION: Yes Soft to palpation, No Tenderness to palpation present (GI), No Guarding due to palpation present (GI) and Yes No hepatosplenomegaly present Extremity: COMMON NORMALS: normal to inspection, capillary refill normal, no clubbing, cyanosis or edema, no calf tenderness and no pedal edema OTHER: No acute deformities can move all extremities without any elicitation of pain Skin: OTHER: Hematoma on the face and upper extremities from frequent falls no signs of infection Course Vital Signs: Vital signs: Vital Signs Temperature 97.9 F 08/13/25 04:07 Pulse Rate 96 08/13/25 08:35 Respiratory Rate 24 H 08/13/25 08:30 Blood Pressure 138/89 08/13/25 08:30 Pulse Oximetry 92 08/13/25 08:30 Oxygen Delivery Me thod Nasal Cannula 08/13/25 08:18 Oxygen Flow Rate 6 08/13/25 08:18 MDM - Recheck/Abnormal Lab/Rx Medical Decision Making Medical decision making Social determinants: Patient severely demented unable to provide history I reviewed the patient's medical record. I reviewed the patient's current home meds. Alternate historians: provides all the history as well as reviewing old charts Differential diagnosis: Acute metabolic encephalopathy, advancing dementia, intracranial bleed Lab Review: Acute on chronic renal failure, hyperkalemia hyponatremia. Baseline creatinine 1.5-1.8 Creatinine on admission 14.7 with a BUN of 91 anion gap 41.6 potassium 7. Initial lactic acid 7.7. Imaging: No acute findings on the CT neck head abdomen or pelvis.Chest x-ray shows right lower lobe pneumonia poor chest x-ray due to positioning. Bilateral pleural effusions Assessment of risk Level of risk: High Hospitalization considerations: Admit for acute metabolic encephalopathy secondary to uremia from acute renal failure as well as hyperkalemia and pneumonia Reexamination: Unchanged Assessment and plan: IV fluids given started on antibiotics. Consult nephrology. Treated hyperkalemia with sodium bicarb insulin calcium chloride and albuterol. Discussed with hospitalist and nephrology orders written for admission Lab Data 08/13/25 03:17 08/13/25 03:17 Radiology Impressions Cervical Spine CT 08/08/25 12:50 IMPRESSION: 1. No acute cervical spine fracture. 2. Anterior cervical fusion with interbody spacer at C5-6 is intact. 3. Moderate bilateral foraminal stenosis at C6 6 7 and mild on the LEFT at C4-5. Abdomen/Pelvis CT 08/08/25 13:41 IMPRESSION: 1. Small bilateral pleural effusions. 2. Cardiomegaly. 3. Perinephric stranding around each kidney. No renal obstruction. Correlate for possible urinary tract infection. 4. Severe atrophy LEFT kidney. 5. Small amount of free fluid in the pelvis. 6. No evidence for colitis. No GI tract obstruction. Head CT 08/08/25 14:11 IMPRESSION: No acute intracranial hemorrhage or mass effect. Chest X-Ray 08/09/25 05:35 IMPRESSION: Improving aeration at the lung bases. Liver Ultrasound 08/09/25 12:40 IMPRESSION: No acute findings within limitations of the study. Laboratory Results WBC 21.18 10^3/uL (3.29-11.43) H 08/08/25 12:57 RBC 3.96 10^6/uL (3.85-5.65) 08/08/25 12:57 Hgb 11.40 g/dL (11.27-16.99) 08/08/25 12:57 Hct 36.3 % (36-47) 08/08/25 12:57 MCV 91.7 fl (85-98) 08/08/25 12:57 MCH 28.8 pg (27-33) 08/08/25 12:57 MCHC 31.4 g/dL (30-55) 08/08/25 12:57 RDW 15.0 % (12.1-15.1) 08/08/25 12:57 Plt Count 348 10^3/cmm (157-399) 08/08/25 12:57 MPV 10.3 fL (7.4-10.4) 08/08/25 12:57 Neut % (Auto) 89.4 % 08/08/25 12:57 Lymph % (Auto) 4.2 % 08/08/25 12:57 [place] % (Auto) 5.5 % 08/08/25 12:57 Eos % (Auto) 0.0 % 08/08/25 12:57 Baso % (Auto) 0.2 % 08/08/25 12:57 Neut # (Auto) 18.95 10^3/uL (1.8-7.7) H 08/08/25 12:57 Lymph # (Auto) 0.9 10^3/uL (0.8-4.8) 08/08/25 12:57 [place] # (Auto) 1.2 10^3/uL (0.2-0.9) H 08/08/25 12:57 Eos # (Auto) 0.0 10^3/uL (0.0-0.8) 08/08/25 12:57 Baso # (Auto) 0.0 10^3/uL (0.0-0.1) 08/08/25 12:57 Nucleated RBC % (auto) 0.5 % 08/08/25 12:57 Nucleated RBCs # 0.1 /100WBC 08/08/25 12:57 Specimen Type Arterial 08/08/25 14:10 Sample Site Radial, right 08/08/25 14:10 ABG pH 7.18 (7.35-7.45) L* 08/08/25 14:10 ABG pCO2 21.7 mmHg (35-45) L 08/08/25 14:10 ABG pO2 81.7 mmHg (80.0-100.0) 08/08/25 14:10 ABG PO2/FiO2 Ratio 389 08/08/25 14:10 ABG HCO3 8.1 mmol/L (22-26) L 08/08/25 14:10 ABG O2 Saturation 93.1 08/08/25 14:10 ABG Base Excess -18.4 mmol/L (-2.0-2.0) L 08/08/25 14:10 Justin Test Pos 08/08/25 14:10 A-a O2 Gradient 5.0 mmHg (5-10) 08/08/25 14:10 Hematocrit 35.3 % (37-47) L 08/08/25 14:10 Hgb O2 Saturation 91.6 % (95-100) L 08/08/25 14:10 Carboxyhemoglobin 1.6 %THgb (0.4-20.1) 08/08/25 14:10 Methemoglobin 0.0 % (0.4-1.5) L 08/08/25 14:10 Total Hemoglobin 11.5 g/dL (12-16) L 08/08/25 14:10 Sodium 134.0 mmol/L (131-143) 08/08/25 14:10 Potassium 6.8 mmol/L (3.5-5.0) H 08/08/25 14:10 Glucose 63.0 mg/dL (70-115) L 08/08/25 14:10 Ionized Calcium 1.1 mmol/L (1.1-1.4) 08/08/25 14:10 O2 Delivery Device Room air 08/08/25 14:10 FiO2 21.0 % 08/08/25 14:10 Certified Hearing Instrument Dispenser ID [place] 08/08/25 14:10 Sodium 135 mmol/L (136-145) L 08/08/25 14:05 Potassium 7.1 mmol/L (3.5-5.1) H* 08/08/25 14:05 Chloride 91 mmol/L (98-107) L 08/08/25 14:05 Carbon Dioxide 9 mmol/L (22-29) L 08/08/25 14:05 Anion Gap 42.1 (5-19) H 08/08/25 14:05 BUN 93 mg/dL (8-23) H* 08/08/25 14:05 Creatinine 14.8 mg/dL (0.5-0.9) H* 08/08/25 14:05 GFR Calculation Not Reportable 08/08/25 14:05 Glucose 73 mg/dL (65-115) 08/08/25 14:05 POC Glucose 108 mg/dL (70-110) 08/08/25 15:10 Estimat Average Glucose 111 08/08/25 12:57 Hemoglobin A1c 5.5 % (4.0-6.0) 08/08/25 12:57 Calculated Osmolality 307 mOsm/kg (285-295) H 08/08/25 14:05 Lactic Acid 7.7 mmol/L (0.5-2.2) H* 08/08/25 14:05 Uric Acid 16.3 mg/dL (2.4-5.7) H 08/08/25 12:57 Calcium 9.1 mg/dL (8.5-10.5) 08/08/25 14:05 Total Bilirubin 1.4 mg/dL (0.15-1.2) H 08/08/25 14:05 AST 72 U/L (0-32) H 08/08/25 14:05 ALT 46 U/L (0-33) H 08/08/25 14:05 Alkaline Phosphatase 141 U/L (35-105) H 08/08/25 14:05 Creatine Kinase 119 U/L (26-192) 08/08/25 12:57 Total Protein 6.5 g/dL (6.6-8.7) L 08/08/25 14:05 Albumin 3.7 g/dL (3.5-5.2) 08/08/25 14:05 Globulin 2.8 g/dL (1.3-4.6) 08/08/25 14:05 Procalcitonin 0.63 ng/mL (0-0.5) H 08/08/25 14:05 Salicylates < 0.3 mg/dL (3-10) L 08/08/25 12:57 Hep Bs Antigen Non-reactive (Nonreactive) 08/08/25 12:57 Hep Bs Antibody < 3.5 (11.5-1000) L 08/08/25 12:57 Hepatitis C Antibody Non-reactive (Nonreactive) 08/08/25 12:57 All radiology interpretation(s) finalized by discharge Critical Care Time Critical Care Time: Critical Care Time: Yes Total Critical Care Time: 45 Attestation: The high probability of a clinically significant, sudden or life threatening deterioration of the patient's cardiovascular respiratory renal system(s) required my full and direct attention, intervention and personal management. The critical care time is as shown. This time is in addition to time spent performing any reported procedures but includes the following: [x] Data and vital sign review and interpretation [x] Patient assessment, examination and intervention [x] Documentation [x] Medication orders and management Discharge Plan Discharge Patient Disposition: Admitted As Inpatient Admit Provider: Javad Jones Clinical Impression: Acute kidney injury superimposed on CKD, Anemia in chronic kidney disease, Dementia, Hyperkalemia, High anion gap metabolic acidosis, Pneumonia, Uremia Condition: Stable Coding Level of Care Code ED Science Instructor for Randa Sam
--- NOTE | 2025-08-08 14:11 | CTR_ITS ---
PROCEDURE INFORMATION: Exam: CT Head Without Contrast Exam date and time: 08/08/2025 2:26 PM Age: 74 years old Clinical indication: Altered mental status/memory loss; Additional info: AMS TECHNIQUE: Imaging protocol: Computed tomography of the head without contrast. Radiation optimization: All CT scans at this facility use at least one of these dose optimization techniques: automated exposure control; mA and/or kV adjustment per patient size (includes targeted exams where dose is matched to clinical indication); or iterative reconstruction. COMPARISON: CT head wo con* [id number] 07/05/2025 7:25 PM RADIATION DOSE METRICS: Total DLP (mGy-cm): 785.18 FINDINGS: Brain: No acute intracranial hemorrhage or mass effect. Moderate to extensive nonspecific supratentorial white matter hypoattenuation is seen, most likely chronic microangiopathic changes. Chronic microangiopathy and/or old lacunar infarcts in the thalami. Old right cerebellar lacunar infarct. Cerebral ventricles: Within normal limits for age. Paranasal sinuses: Minimal sinus opacification. Mastoid air cells: Visualized mastoid air cells are well aerated. Bones: Unremarkable. Soft tissues: Within normal limits. CT/CT head wo con* [id number] IMPRESSION: No acute intracranial hemorrhage or mass effect.
[2025-08-08 14:21] LABS: ABG PCO2 21.7 mmHg (35-45); Alveolar-Arterial Oxygen Gradi 5.0 mmHg (5-10); Arterial Blood Gas Hematocrit 35.3 % (37-47); Blood Gas Allen Test Pos; Blood Gas Operator Identificat WALCI; Blood Gas Sample Site Radial, right; Blood Gas Sample Type Arterial; Carboxyhemoglobin 1.6 %THgb (0.4-20.1); Glucose Level-ABG 63.0 mg/dL (70-115); HCO3 ABG 8.1 mmol/L (22-26); Ionized Calcium Level - ABG 1.1 mmol/L (1.1-1.4); Methemoglobin 0.0 % (0.4-1.5); Oxygen Saturation ABG 93.1; PO2 ABG 81.7 mmHg (80.0-100.0); PO2 FiO2 Ratio Arterial Blood 389; Potassium Level - ABG 6.8 mmol/L (3.5-5.0); Sodium Level - ABG 134.0 mmol/L (131-143)
[2025-08-08 14:22] LABS: ABG PH Result 7.18 (7.35-7.45)
[2025-08-08 14:33] LABS: Alanine Aminotransferase 46 U/L (0-33); Albumin Level 3.7 g/dL (3.5-5.2); Alkaline Phosphatase 141 U/L (35-105); Anion Gap 42.1 (5-19); Aspartate Amino Transferase 72 U/L (0-32); Calcium 9.1 mg/dL (8.5-10.5); Chloride 91 mmol/L (98-107); Globulin 2.8 g/dL (1.3-4.6); Glucose 73 mg/dL (65-115); Osmolality Calculated 307 mOsm/kg (285-295); Sodium 135 mmol/L (136-145); Total Protein 6.5 g/dL (6.6-8.7)
[2025-08-08] MEDS: sodium bicarbonate 150 MEQ in dextrose 5% 200 ML 700 MEQ IV (14:39)
[2025-08-08 14:40] LABS: Lactic Sepsis W/Reflex 7.7 mmol/L (0.5-2.2); Potassium 7.1 mmol/L (3.5-5.1)
[2025-08-08 14:41] LABS: Blood Urea Nitrogen 93 mg/dL (8-23); Carbon Dioxide 9 mmol/L (22-29)
[2025-08-08] MEDS: cefTRIAXone 1,000 mg SDV 1000 MG IVP (14:42)
[2025-08-08] MEDS: calcium chloride 10% Syr 10 mL 2 GM IVP (14:48)
--- NOTE | 2025-08-08 14:56 | PM.HP ---
Providers/Chief Complaint Primary Care Provider: Marizol Rivera MD Chief Complaint: AMS, Fall History of Present Illness Karina Estes is a 74 year old female with past medical history of dementia, hypertension, Chronic back pain was brought into the ER today by her because of worsening mentation over the last 1 month. But worse over the last 2 to 3 days. As per the patient's oral intake have decreased over the last 2 to 3 days, she is not getting out of bed since today morning hence he brought her to the ER. Patient to him have not complained of any nausea, vomiting, headache, dizziness. He does state he was given an antibiotic by the PCP for some kind of an infection possibly UTI. In the ER she was found to have a white count 21,000, potassium of 7 1, creatinine of 14.8 with a BUN of 93 with a lactic acid of 7.7. Review of Systems General: Reports: ROS unobtainable due to mental status Medications/Allergies Home Medications ?Medication ?Instructions ?Recorded ?Confirmed ?Last Taken ?Type atorvastatin 10 mg tablet 10 mg PO QDAY #90 tabs 12/18/24 08/08/25 Unknown Rx aripiprazole 2 mg tablet 2 mg PO DAILY #90 tabs 01/08/25 08/08/25 Unknown Rx vitamin D3 125 mcg (5,000 1 cap PO DAILY #90 caps 02/15/25 08/08/25 Unknown Rx unit)-vitamin K2 100 mcg capsule amlodipine 5 mg tablet 5 mg PO DAILY #90 tabs 02/26/25 08/08/25 Unknown Rx Held on 06/12/25. Instructions: Guidelines gabapentin 600 mg tablet 600 mg PO TID #270 tabs 03/05/25 08/08/25 Unknown Rx hydrochlorothiazide 12.5 mg tablet 12.5 mg PO DAILY #90 tabs 03/05/25 08/08/25 Unknown Rx venlafaxine 75 mg tablet 225 mg (3 x 75 mg) PO DAILY #90 04/23/25 08/08/25 Unknown Rx tabs metoprolol tartrate 50 mg tablet 25 mg (1/2 x 50 mg) PO BID #90 tabs 05/25/25 08/08/25 Unknown Rx hydrocodone 10 mg-acetaminophen 1 tab PO Q6H PRN pain (scale score 07/09/25 08/08/25 Unknown Rx 325 mg tablet 7-10) 30 days #120 tabs cyclobenzaprine 10 mg tablet 10 mg PO BEDTIME PRN muscle spasms 08/08/25 08/08/25 Unknown History omeprazole 40 mg capsule,delayed 40 mg PO DAILY 08/08/25 08/08/25 Unknown History release Allergies Allergy/AdvReac Type Severity Reaction Status Date / Time Sulfa (Sulfonamide Allergy Mild Dizzy Verified 07/16/25 15:14 Antibiotics) Latex, Natural Rubber Allergy ADR/ALGY-Fl Verified 07/16/25 15:14 ushing PFSH Acute PFSH: Medical History (Updated 08/08/25 @ 16:30 by Javad Jones MD) Vitamin D deficiency DJD (degenerative joint disease), cervical DDD (degenerative disc disease), thoracic Vitamin B12 deficiency CKD stage 3b, GFR 30-44 ml/min Anemia in chronic kidney disease Anxiety Nicotine dependence, cigarettes, uncomplicated Chronic gastritis without bleeding Hypomagnesemia COPD (chronic obstructive pulmonary disease) Hyponatremia Encounter for chronic pain management legacy patient from pain clinic; on hydrocodone for chronic back pain Chronic lower back pain DDD w/ peripheral neuropathy Pain management contract signed Major depression, chronic Hypercholesteremia HTN (hypertension) Surgical History History of rectal surgery 8.16 for rectal prolapse Hx of colonoscopy with polypectomy 7.7.22 tubular adenoma--f/u 5 yrs--Dr. Julian Parikh Hx of cervical spine surgery anterior cervical fusion 2008 Hx of total hysterectomy with removal of both tubes and ovaries Hx of appendectomy Family History Sister Rheumatoid arthritis Grandmother Colon cancer Social History Smoking and tobacco/nicotine status: current every day tobacco/nicotine user cigarettes Packs smoked per day: 1 Quit status (tobacco/nicotine): not considering quitting Second hand smoke exposure: Yes Alcohol intake: never Substance/Drug Use: never Household members: spouse and other Details: granddaughter Housing: House Marital status: Marital status details: no living children--son in MVA; daughter of COVID Number of children: 2 Highest education level completed: High School Graduate Current occupational status: retired 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 Vitals/I&O/Wt Last Vital Signs Temp 97.3 F L 08/08/25 11:38 Pulse 110 H 08/08/25 14:04 Resp 16 08/08/25 14:04 BP 145/86 08/08/25 11:38 Pulse Ox 95 08/08/25 14:04 O2 Del Method Room Air 08/08/25 14:04 Physical Exam Narrative: General: No acute distress, awake alert x 1, dehydrated HEENT: PERRLA, pupils bilaterally equal and reactive Chest: Normal vesicular breath sounds, occasional rhonchi, equal good air entry bilaterally CVS: S1-S2 regular, no murmurs, tachycardia, no gallops, no rubs Abdomen: Soft, nontender, no organomegaly, bowel sounds present Neuro: No focal deficits, no facial deformity, moving all limbs Data 08/08/25 12:57 08/08/25 14:05 Micro: Microbiology 08/08/25 14:05 Blood Culture - Preliminary Blood SPECIMEN COLLECTED 08/08/25 14:07 Blood Culture - Preliminary Blood SPECIMEN COLLECTED A&P Assessment and plan 1. Acute renal failure: 2. CKD stage 3b, GFR 30-44 ml/min: 3. Hyperkalemia: 4. High anion gap metabolic acidosis: 5. Sepsis: 6. Pneumonia: 7. HTN (hypertension): 8. Anemia in chronic kidney disease: 9. Delirium: 10. COPD (chronic obstructive pulmonary disease): 11. Uremia: Plan: 74-year-old with history of dementia presents to the ER today because of worsening mentation found to have acute renal failure with hyperkalemia and metabolic acidosis with concerns for sepsis Acute renal failure: Does seem to have baseline CKD. Baseline creatinine around 1.8. Currently 14.7. Associated with hyperkalemia and hindgut metabolic acidosis, uremia. Nephrology consulted from the ER. Repeat treatment with D10 and 10 units insulin, calcium gluconate 2 g stat along with Kayexalate 30 mg oral one-time. BMP every 4 hours. If potassium does not improve in next 2 to 3 hours we will possibly need dialysis. Family is agreeable. Will consult surgery if needed. Check ABG. If metabolic acidosis then will start on bicarb drip at 75 cc an hour. Watch for fluid overload. Pugh catheterization. Strict input output charting. Medical reconciliation done for nephrotoxic drugs. CT of the pelvis appreciated. No concern for obstructive nephropathy. Sepsis: SIRS: Tachycardic, Leukocytosis Source: Pneumonia End organ damage: Acute infectious encephalopathy, acute renal failure Lactic acid elevated. Patient did not receive full 30 mL/kg BW given concerns for renal failure. Bicarb drip as above. Monitor blood pressures. Keep mean artery pressure 65 mmHg. Blood culture, urine culture, MRSA swab, trend procalcitonin, check bacterial antigen. Empirically start on IV ceftriaxone 1 g daily for now. Goal blood pressure less than 140/90 mmHg. Patient takes amlodipine, metoprolol at home. Hold amlodipine for now. Continue with metoprolol. Depending on blood pressures can start. CODE STATUS: Discussed detail with the patient at bedside. Has been a DPOA. Full code Renal dialysis diet Protonix OPD prophylaxis. De-escalate antibiotics as per culture results. PDMP PDMP Reviewed: Not Reviewed Attestations Medical Necessity Statement*: Admission for more than 2 midnights for management of acute renal failure associated with hyperkalemia, uremia, high anion gap metabolic acidosis, sepsis delirium Critical Care Time: The high probability of a clinically significant, sudden or life threatening deterioration of the patient's [renal] system(s) required my full and direct attention, intervention and personal management. The critical care time is as shown. This time is in addition to time spent performing any reported procedures but includes the following: [x] Data and vital sign review and interpretation [x] Patient assessment, examination and intervention [x] Documentation [x] Medication orders and management Critical Care Time (min): 65 Coding Level of Care Code Critical Care >/= 30 minutes Critical care time (in minutes): 65 The high probability of a clinically significant, sudden or life threatening deterioration, as referenced in this documentation, required my full and direct attention, intervention and personal management. The critical care time shown is in addition to time spent performing any reported separately billable procedures and includes the following: [x] Data and vital sign review and interpretation [x] Patient assessment, examination and intervention [x] Medication orders and management [x] Patient/Family updates as able [x] Care Coordination and Documentation. Other Coding Information This patient has a high probability of clinically significant, sudden or life threatening deterioration of the patient's (neurological/pulmonary/cardiac/renal/ID/endocrine) systems required my full, direct attention, the highest level of physician preparedness for urgent intervention and personal management. I managed/supervised life or organ supporting interventions that required frequent physician assessment. I devoted my full attention in the ICU to the direct care of this patient for the period of time indicated above. Time I spent with family or surrogate(s) is included only if the patient was incapable of providing necessary information or participating in decision making. This time includes the following services provided: Telemetry review Hemodynamic interpretation, assessment and management Review and interpretation of CXR Review and interpretation of lab values Review and interpretation of microbiologic data and culture results Review of medications and administration Review and interpretation of Nutrition requirements and management Discussion of management with other consultants and services Clinical update to family members Diagnoses Acute renal failure N17.9 CKD stage 3b, GFR 30-44 ml/min N18.32 Hyperkalemia E87.5 High anion gap metabolic acidosis E87.29 Sepsis A41.9 Pneumonia J18.9 HTN (hypertension) I10 Anemia in chronic kidney disease N18.9; D63.1 Delirium R41.0 Altered mental status type: delirium COPD (chronic obstructive pulmonary disease) J44.9 Uremia N19
[2025-08-08] MEDS: insulin regular-human 100 units/1 mL 10 UNIT IVP ×2 (15:17→16:59)
--- NOTE | 2025-08-08 15:17 | PM.CONSULT ---
Providers/Reason For Consult Consulting Physician/Specialty*: omid catalan md/ telenephrology Reason for Consult*: Acute kidney injury and hyperkalemia metabolic acidosis Requesting Physician: Dr Cyr Attending Physician: Dr Cyr Primary Care Provider: Marizol Rivera MD History of Present Illness History of Present Illness Karina Estes is a 74 year old female patient has history of CKD stage IIIb baseline pending 1.8 was 1.5 has an atrophic left kidney, has arthritis, vitamin B12 deficiency, anemia anxiety COPD depression hypertension hyperlipidemia. Patient has history of total hysterectomy, rectal surgery and appendectomy. Patient's daughter required dialysis and then . Patient presented today with weakness lethargy and falls over the last week and patient was found to have metabolic acidosis increased anion gap lactic acidosis, acute kidney injury and hyperkalemia. Patient has not been eating over the last couple days has been weak lethargic and altered mental status. Per family patient was not taking any NSAIDs Review of Systems Narrative: Weak, lethargic not eating, not feeling well nonspecific complaints confused decreased urine output. Poor appetite denied diarrhea per the family no headaches. Medications/Allergies Home Medications ?Medication ?Instructions ?Recorded ?Confirmed ?Last Taken ?Type atorvastatin 10 mg tablet 10 mg PO QDAY #90 tabs 12/18/24 08/08/25 Unknown Rx aripiprazole 2 mg tablet 2 mg PO DAILY #90 tabs 01/08/25 08/08/25 Unknown Rx vitamin D3 125 mcg (5,000 1 cap PO DAILY #90 caps 02/15/25 08/08/25 Unknown Rx unit)-vitamin K2 100 mcg capsule amlodipine 5 mg tablet 5 mg PO DAILY #90 tabs 02/26/25 08/08/25 Unknown Rx Held on 06/12/25. Instructions: Guidelines gabapentin 600 mg tablet 600 mg PO TID #270 tabs 03/05/25 08/08/25 Unknown Rx hydrochlorothiazide 12.5 mg tablet 12.5 mg PO DAILY #90 tabs 03/05/25 08/08/25 Unknown Rx venlafaxine 75 mg tablet 225 mg (3 x 75 mg) PO DAILY #90 04/23/25 08/08/25 Unknown Rx tabs metoprolol tartrate 50 mg tablet 25 mg (1/2 x 50 mg) PO BID #90 tabs 05/25/25 08/08/25 Unknown Rx hydrocodone 10 mg-acetaminophen 1 tab PO Q6H PRN pain (scale score 07/09/25 07/16/25 Unknown Rx 325 mg tablet 7-10) 30 days #120 tabs cyclobenzaprine 10 mg tablet 10 mg PO BEDTIME PRN muscle spasms 08/08/25 08/08/25 Unknown History omeprazole 40 mg capsule,delayed 40 mg PO DAILY 08/08/25 08/08/25 Unknown History release Allergies Allergy/AdvReac Type Severity Reaction Status Date / Time Sulfa (Sulfonamide Allergy Mild Dizzy Verified 07/16/25 15:14 Antibiotics) Latex, Natural Rubber Allergy ADR/ALGY-Fl Verified 07/16/25 15:14 ushing Current Medications Generic Name Dose Route Start Last Admin Trade Name Freq PRN Reason Stop Dose Admin Sodium Chloride 1,000 mls @ 999 mls/hr 08/08/25 13:45 08/08/25 14:49 Sodium Chloride 0.9% IV 08/08/25 15:45 999 mls/hr .Q1H1M [facility] Administration PFSH Acute PFSH: Medical History (Updated 08/08/25 @ 15:21 by Collin Catalna MD) Vitamin D deficiency DJD (degenerative joint disease), cervical DDD (degenerative disc disease), thoracic Vitamin B12 deficiency CKD stage 3b, GFR 30-44 ml/min Anemia in chronic kidney disease Anxiety Nicotine dependence, cigarettes, uncomplicated Chronic gastritis without bleeding Hypomagnesemia COPD (chronic obstructive pulmonary disease) Hyponatremia Encounter for chronic pain management legacy patient from pain clinic; on hydrocodone for chronic back pain Chronic lower back pain DDD w/ peripheral neuropathy Pain management contract signed Major depression, chronic Hypercholesteremia HTN (hypertension) Surgical History History of rectal surgery 8.16 for rectal prolapse Hx of colonoscopy with polypectomy 7.7.22 tubular adenoma--f/u 5 yrs--Dr. Julian Parikh Hx of cervical spine surgery anterior cervical fusion 2008 Hx of total hysterectomy with removal of both tubes and ovaries Hx of appendectomy Family History Sister Rheumatoid arthritis Grandmother Colon cancer Social History Smoking and tobacco/nicotine status: current every day tobacco/nicotine user cigarettes Packs smoked per day: 1 Quit status (tobacco/nicotine): not considering quitting Second hand smoke exposure: Yes Alcohol intake: never Substance/Drug Use: never Household members: spouse and other Details: granddaughter Housing: House Marital status: Marital status details: no living children--son in MVA; daughter of COVID Number of children: 2 Highest education level completed: High School Graduate Current occupational status: retired 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 Patient comfortable in bed no apparent distress. Not using oxygen. HEENT normocephalic atraumatic. Neck is supple lungs are clear heart is regular and tachycardic. Abdomen is soft nontender nondistended positive bowel sounds extremities no edema neurologically responds to pain not following commands and lethargic. Data 08/08/25 12:57 08/08/25 14:05 Micro: Microbiology 08/08/25 14:05 Blood Culture - Preliminary Blood SPECIMEN COLLECTED 08/08/25 14:07 Blood Culture - Preliminary Blood SPECIMEN COLLECTED A&P Assessment and plan 1. Acute kidney injury superimposed on CKD: 74-year-old lady with depression atrophic left kidney CKD stage III baseline creatinine 1.8 mg/dL hypertension hyperlipidemia. Patient is here now with weakness and confusion and falls. 1. Acute kidney injury imaging reveals normal right kidney mild perinephric stranding no obstruction or left kidney severe atrophy. This is on the noncontrast CT scan. I do not have any urine test. Her creatinine is 14.8 with a BUN of 93. Will send urine studies including urinalysis urine microalbumin and creatinine and urine electrolytes. Will give IV fluids and monitor for any renal recovery 2. Very elevated anion gap metabolic acidosis currently of 35. She has a lactate of 7.7. Will check for ketones. Will check a salicylate level and even ethylene glycol if possible. If patient's renal function and acidosis does not improve quickly with IV fluids then would consider initiating dialysis. 3. Hyperkalemia for metabolic acidosis and acute kidney injury. Patient is being treated medically. Will repeat labs in 1 to 2 hours to look for improvement. Based on lab results decide if we need to initiate dialysis. Patient was seen and examined using audiovisual equipment with the aid of a nurse. The patient's consented to telehealth and to dialysis if needed. Case discussed in detail with the patient's and with Dr. Duff and grace Plan: Will give IV fluids to treat infection monitor labs may need dialysis soon PDMP PDMP Reviewed: Not Reviewed Consult Attestations Medical Necessity Statement: Altered mental status, increased anion gap metabolic acidosis, acute kidney injury and hyperkalemia. Time Spent in Patient Care: Greater than 35 minutes (>than 50% of time spent in counselling and/or direct pt care on unit). Coding Level of Care Code Acute Code for Chg Fwd Diagnoses Acute kidney injury superimposed on CKD N17.9; N18.9
--- NOTE | 2025-08-08 15:18 | PC.PHAR ---
pt unable to verify medications and can't tell us when she last took any. Verified with pharmacy.
[2025-08-08 15:45] LABS: Procalcitonin 0.63 ng/mL (0-0.5)
[2025-08-08 15:59] LABS: Reflex Lactate Order REFLEX LACTIC ORDERD
[2025-08-08] MEDS: calcium gluconate 0.1 gm/mL 10% SDV 10mL 1 GM IVP (16:13)
--- NOTE | 2025-08-08 16:28 | PC.NURSE ---
Arrived from ED, Dr. Jones came to unit spoke with this nurse see MAR for orders
[2025-08-08 16:29] LABS: Salicylate < 0.3 mg/dL (3-10)
[2025-08-08 16:31] LABS: Hepatitis B Surface Antigen Non-Reactive (Nonreactive)
[2025-08-08 16:49] LABS: Uric Acid 16.3 mg/dL (2.4-5.7)
[2025-08-08] MEDS: calcium gluconate 0.9% NaCL 1 GM/50 ML PREMIX IV ×2 (17:00→17:24)
[2025-08-08] MEDS: heparin 5,000 unit/mL INJ 1 mL 5000 UNIT SUBCUT (17:24)
[2025-08-08] MEDS: pantoprazole 40 mg SDV IVP (17:24)
[2025-08-08 17:27] LABS: Lactic Acid level (Lactate) 9.8 mmol/L (0.5-2.2)
--- NOTE | 2025-08-08 18:19 | PM.OP ---
Operative Report Date of procedure: August 08, 2025 Pre-op diagnosis: Renal failure Post-op diagnosis: same Procedure done: temporary dialysis catheter placement Surgeon: Ron Thakkar MD Brief History: Patient with renal failure in need of renal dialysis. Procedure: After prepping and draping appropriate chest wall, patient was placed into trendelenberg position. Local was injected over the subclavian vein. This vein was cannulated and by Seldinger technique the temporary dialysis catheter was advanced and secured to skin with 3-0 silk. Good blood return was noted from both ports and then was saline flushed. Area was aseptically dressed. X ray was obtained to check for positioning of catheter.
--- NOTE | 2025-08-08 19:15 | PC.NURSE ---
Dr. Thakkar at bedside to place dialysis catheter
[2025-08-08 19:26] LABS: Calcium 11.0 mg/dL (8.5-10.5); Carbon Dioxide 10 mmol/L (22-29); Chloride 91 mmol/L (98-107); Creatinine Clr Calc Pharmacy 2.9557; Glucose 95 mg/dL (65-115); Iron 30 ug/dL (37-145); Osmolality Calculated 318 mOsm/kg (285-295); Sodium 139 mmol/L (136-145); Thyroid Stimulating Hormone 7.34 uIU/mL (0.27-4.20); Total Iron Binding Capacity 274 mcg/dl; Unsaturated Iron Binding 244 ug/dL (112-347); Vitamin B12 1704 pg/mL (232-1245)
[2025-08-08 19:38] LABS: Anion Gap 44.0 (5-19); Potassium 6.0 mmol/L (3.5-5.1); Salicylate < 0.3 mg/dL (3-10)
[2025-08-08 19:40] LABS: Blood Urea Nitrogen 96 mg/dL (8-23)
--- NOTE | 2025-08-08 20:12 | XRR_ITS ---
PROCEDURE INFORMATION: Exam: XR Chest Exam date and time: 08/08/2025 9:30 PM Age: 74 years old Clinical indication: Device placement; Other: Dialysis line placement TECHNIQUE: Imaging protocol: Radiologic exam of the chest. Views: 1 view. COMPARISON: CR XR chest 1V portable [id number] 08/08/2025 12:18 PM FINDINGS: Tubes, catheters and devices: Large bore central venous catheter with tip near the superior cavoatrial junction. Lungs: Unremarkable. No consolidation. Pleural spaces: Other findings similar to prior including small bilateral pleural effusions and coarsened interstitial markings in the lower lung zones. Heart/Mediastinum: Unremarkable. No cardiomegaly. Bones/joints: Unremarkable. XR/XR chest 1V portable [id number] IMPRESSION: 1. Right-sided large bore central venous catheter with tip near the superior cavoatrial junction. 2. Other findings similar to prior including small bilateral pleural effusions and coarsened interstitial markings in the lower lung zones.
--- NOTE | 2025-08-08 20:33 | PM.CONSULT ---
Providers/Reason For Consult Consulting Physician/Specialty*: darek vinson MD general surgery Reason for Consult*: temporary dialysis cath Requesting Physician: MD grace hospitalist Attending Physician: Javad Jones MD Primary Care Provider: Marizol Rivera MD History of Present Illness History of Present Illness Karina Estes is a 74 year old female with dementia that is getting worse. brought in patient because she was not doing well and found to have creatinine of over 14. She was given fluid to see if her labs would improve and they did not and she needs emergent dialysis. Review of Systems Narrative: Patient has dementia and can't answer reliably Medications/Allergies Home Medications ?Medication ?Instructions ?Recorded ?Confirmed ?Last Taken ?Type atorvastatin 10 mg tablet 10 mg PO QDAY #90 tabs 12/18/24 08/08/25 Unknown Rx aripiprazole 2 mg tablet 2 mg PO DAILY #90 tabs 01/08/25 08/08/25 Unknown Rx vitamin D3 125 mcg (5,000 1 cap PO DAILY #90 caps 02/15/25 08/08/25 Unknown Rx unit)-vitamin K2 100 mcg capsule amlodipine 5 mg tablet 5 mg PO DAILY #90 tabs 02/26/25 08/08/25 Unknown Rx Held on 06/12/25. Instructions: Guidelines gabapentin 600 mg tablet 600 mg PO TID #270 tabs 03/05/25 08/08/25 Unknown Rx hydrochlorothiazide 12.5 mg tablet 12.5 mg PO DAILY #90 tabs 03/05/25 08/08/25 Unknown Rx venlafaxine 75 mg tablet 225 mg (3 x 75 mg) PO DAILY #90 04/23/25 08/08/25 Unknown Rx tabs metoprolol tartrate 50 mg tablet 25 mg (1/2 x 50 mg) PO BID #90 tabs 05/25/25 08/08/25 Unknown Rx hydrocodone 10 mg-acetaminophen 1 tab PO Q6H PRN pain (scale score 07/09/25 08/08/25 Unknown Rx 325 mg tablet 7-10) 30 days #120 tabs cyclobenzaprine 10 mg tablet 10 mg PO BEDTIME PRN muscle spasms 08/08/25 08/08/25 Unknown History omeprazole 40 mg capsule,delayed 40 mg PO DAILY 08/08/25 08/08/25 Unknown History release Allergies Allergy/AdvReac Type Severity Reaction Status Date / Time Sulfa (Sulfonamide Allergy Mild Dizzy Verified 07/16/25 15:14 Antibiotics) Latex, Natural Rubber Allergy ADR/ALGY-Fl Verified 07/16/25 15:14 ushing Current Medications Generic Name Dose Route Start Last Admin Trade Name Freq PRN Reason Stop Dose Admin Docusate Sodium 100 mg 08/08/25 17:00 08/08/25 17:24 Docusate Sodium 100 Mg Capsule PO Not Given BID [facility] Heparin Sodium (Porcine) 5,000 unit 08/08/25 16:48 08/08/25 17:24 Heparin 5,000 Unit/Ml Inj 1 Ml SUBCUT 5,000 unit Q12H [facility] Administration Sodium Bicarbonate 50 meq/ 1,050 mls @ 100 mls/hr 08/08/25 15:30 08/08/25 20:31 Sodium Chloride IV 0 mls/hr .[id number] [facility] Infusion Metoprolol Tartrate 25 mg 08/08/25 17:00 08/08/25 17:24 Metoprolol Tartrate 50 Mg Tablet PO 25 mg BID [facility] Administration Pantoprazole Sodium 40 mg 08/08/25 16:48 08/08/25 17:24 Pantoprazole 40 Mg Sdv IVP 40 mg Q24H [facility] Administration PFSH Acute PFSH: Medical History (Updated 08/08/25 @ 16:30 by Javad Jones MD) Vitamin D deficiency DJD (degenerative joint disease), cervical DDD (degenerative disc disease), thoracic Vitamin B12 deficiency CKD stage 3b, GFR 30-44 ml/min Anemia in chronic kidney disease Anxiety Nicotine dependence, cigarettes, uncomplicated Chronic gastritis without bleeding Hypomagnesemia COPD (chronic obstructive pulmonary disease) Hyponatremia Encounter for chronic pain management legacy patient from pain clinic; on hydrocodone for chronic back pain Chronic lower back pain DDD w/ peripheral neuropathy Pain management contract signed Major depression, chronic Hypercholesteremia HTN (hypertension) Surgical History History of rectal surgery 8.16 for rectal prolapse Hx of colonoscopy with polypectomy 7.7.22 tubular adenoma--f/u 5 yrs--Dr. Julian Parikh Hx of cervical spine surgery anterior cervical fusion 2008 Hx of total hysterectomy with removal of both tubes and ovaries Hx of appendectomy Family History Sister Rheumatoid arthritis Grandmother Colon cancer Social History Smoking and tobacco/nicotine status: current every day tobacco/nicotine user cigarettes Packs smoked per day: 1 Quit status (tobacco/nicotine): not considering quitting Second hand smoke exposure: Yes Alcohol intake: never Substance/Drug Use: never Household members: spouse and other Details: granddaughter Housing: House Marital status: Marital status details: no living children--son in MVA; daughter of COVID Number of children: 2 Highest education level completed: High School Graduate Current occupational status: retired 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 Vitals/I&O/Wt Last Vital Signs Temp 96.5 F L 08/08/25 16:03 Pulse 103 H 08/08/25 18:10 Resp 20 H 08/08/25 18:10 BP 161/118 08/08/25 18:10 Pulse Ox 95 08/08/25 18:10 O2 Del Method Room Air 08/08/25 17:42 08/08/25 08/08/25 08/08/25 06:59 14:59 22:59 Intake Total 2370 / 2370 Balance 2370 / 2370 Weight last 48 hrs Weight 146 lb 9.718 oz Weight 159 lb Physical Exam Narrative: Patient has dementia and can't respond appropriately Abdomen is soft and nontender Lungs clear heart RRR Urinary Catheter Management: Pugh: Cath Placed During This Visit: yes Reason for Continuing Indwelling Catheter: Accurate Measurement of Urinary Output in Critically Ill Patients Urinary Catheter Date of Insertion: 08/08/25 Urinary Catheter Time of Insertion: 16:57 Data 08/08/25 12:57 08/08/25 18:13 Micro: Microbiology 08/08/25 14:05 Blood Culture - Preliminary Blood SPECIMEN COLLECTED 08/08/25 14:07 Blood Culture - Preliminary Blood SPECIMEN COLLECTED A&P Assessment and plan 1. Acute renal failure: Plan: has signed consent. Risks include bleeding, infection, cardiopulmonary problems, PTX, catheter failure, DVT, injury to lung and heart, arrythmia, more procedures, injury to lung and surrounding structures in neck/chest and leg depending where catheter placed. PDMP PDMP Reviewed: Not Reviewed Coding Level of Care Code 87777 Diagnoses Acute renal failure N17.9
[2025-08-08 20:53] LABS: Estmated Average Glucose 111; Hemoglobin A1C 5.5 % (4.0-6.0)
[2025-08-08] MEDS: FUROsemide 10 mg/mL SDV 10mL 80 MG IVP (21:25)
[2025-08-08 22:19] LABS: Anion Gap 41.6 (5-19); Calcium 10.5 mg/dL (8.5-10.5); Chloride 92 mmol/L (98-107); Creatinine Clr Calc Pharmacy 3.1624; Free T4 Free Thyroxine 1.13 ng/dL (0.82-1.77); Glucose 85 mg/dL (65-115); Osmolality Calculated 310 mOsm/kg (285-295); Potassium 5.6 mmol/L (3.5-5.1); Sodium 137 mmol/L (136-145)
[2025-08-08 22:24] LABS: Blood Urea Nitrogen 88 mg/dL (8-23); Carbon Dioxide 9 mmol/L (22-29)
[2025-08-08 23:26] LABS: MRSA PCR OZH (swab) NOT DETECTED (Not Detecte)
[2025-08-09] VITALS (182 sets, daily range): BP systolic 117–184; BP diastolic 68–130; PULSE 65–131; RESP 13–35; TEMP 36–36.4; O2SAT 9–99; BMI 26.2
[2025-08-09] MEDS: metoprolol tartrate 1 mg/1 mL SDV 5 mL 5 MG IVP ×5 (00:01→20:06)
--- NOTE | 2025-08-09 00:11 | PC.NURSE ---
Heart rate noted to go up to 130s while getting dialysis, Dr. Stewart notified and received telephone orders at this time to give 5mg Metoprolol IVP Q4H scheduled, with first dose being now. MAR reflected to show orders.
[2025-08-09] MEDS: hyDRALAzine 20 mg/mL INJ 1 mL 10 MG IVP ×2 (00:59→20:41)
[2025-08-09 01:16] LABS: Add Urine Microscopic? NO
[2025-08-09 01:31] LABS: PCP Screen Urine Negative (Negative)
[2025-08-09 01:33] LABS: UA Manual Slide Review YES
[2025-08-09 01:34] LABS: Charge for UA Resulting for Rev
[2025-08-09] MEDS: dilTIAZem 5 mg/mL SDV 5 mL 20 MG IVP (02:51)
[2025-08-09] MEDS: labetalol 5 mg/mL SDV 20mL 40 MG IVP (03:25)
[2025-08-09 04:15] LABS: Anion Gap 29.8 (5-19); Blood Urea Nitrogen 55 mg/dL (8-23); Calcium 8.8 mg/dL (8.5-10.5); Carbon Dioxide 18 mmol/L (22-29); Chloride 97 mmol/L (98-107); Glucose 85 mg/dL (65-115); Osmolality Calculated 306 mOsm/kg (285-295); Potassium 3.8 mmol/L (3.5-5.1); Sodium 141 mmol/L (136-145)
[2025-08-09 04:23] LABS: Procalcitonin 1.08 ng/mL (0-0.5)
--- NOTE | 2025-08-09 05:35 | XRR_ITS ---
PROCEDURE INFORMATION: Exam: XR Chest Exam date and time: 08/09/2025 6:45 AM Age: 74 years old Clinical indication: Device placement; Other: Central line placement TECHNIQUE: Imaging protocol: Radiologic exam of the chest. Views: 1 view. COMPARISON: CR (CHEST, ) 08/08/2025 9:30 PM FINDINGS: Tubes, catheters and devices: Right IJ catheter terminates in the SVC. A 2nd right central line terminates near the atriocaval junction. Lungs: See Pleural spaces finding. Pleural spaces: Improving pleural effusions, only minimal effusions persist. Resolving left lower lobe infiltrate. Heart/Mediastinum: Unremarkable. No cardiomegaly. Bones/joints: Anterior cervical fusion. XR/XR chest 1V portable [id number] IMPRESSION: Improving aeration at the lung bases.
--- NOTE | 2025-08-09 05:50 | P.PCN_ITS ---
Procedure/Consent Consent: Consent for Procedure: Consent obtained from other (indicate) ( Rafat), Risks & Benefits reviewed (risk of infection bleeding, lung injury. benefits of blood draw, IV access.) and Agrees to proceed with procedure Procedure Narrative: pt was not able to consent so Rafat gave verbal consent and will sign consent later. Pt was placed in trendelenburg position and US identified the Internal Jugular Vein. all ports flushed and functional on TLC as tested. patient prepped and draped sterile. Speech Correction Consultant gowned. US probe placed in sterile condom and using sterile clamp the cord was clamped to drape. anesthetized then IJ punctured but wire failed to feed. I reultrasound and visualized needle in vein. good return of blood. guidewire advanced, needle and vessel dilated and TLC advanced to 15 cm. There was some atrial tachycardia from the guidewire which was removed. side port failed to draw well so cath withdrawn to 14 cm and sutured into place. antimicrobe patch and sterile dressing placed. CXR no pneumothorax and cathter in good position. Ok to use. Acute Procedures Central Line Placement: Right IJ: Time out performed: Yes Patient placed on monitor/pulse ox: Yes prep: mask, gown, gloves and other (cap, eye shield) Central line prep: other (chloraprep scrub x3) Local anesthesia used: lidocaine 1% Amount of anesthesia used (ml): 3 Ultrasound used for placement: Yes Central line lumen inserted: triple Post procedure: sutured in place, good blood return, all ports aspirated, f lushed, capped and sterile dressing applied Post procedure x-ray: tip of catheter in good position (distal SVC) and no pneumothorax seen Patient tolerated procedure: well and no complications Complications: none Additional comments: CXR no pneumothorax and cathter in good position. Ok to use.
[2025-08-09] MEDS: heparin 5,000 unit/mL INJ 1 mL 5000 UNIT SUBCUT ×2 (06:30→17:31)
[2025-08-09] MEDS: DILTIAZEM HCL/D5W 125 MG/125 ML BAG IV (06:30)
[2025-08-09 06:55] LABS: Hematocrit 28.2 % (36-47); Hemoglobin 9.40 g/dL (11.27-16.99); Mean Corpuscular HGB Conc 33.3 g/dL (30-55); Mean Corpuscular Hemoglobin 29.6 pg (27-33); Mean Corpuscular Volume 88.7 fl (85-98); Nucleated Red Blood Cells % 0.5 %; Platelet Count 198 10^3/cmm (157-399); Red Blood Count 3.18 10^6/uL (3.85-5.65); White Blood Count 14.88 10^3/uL (3.29-11.43)
[2025-08-09 07:06] LABS: Lactate (Lactic Acid level) 3.3 mmol/L (0.5-2.2)
[2025-08-09 07:09] LABS: Alanine Aminotransferase 88 U/L (0-33); Albumin Level 3.0 g/dL (3.5-5.2); Alkaline Phosphatase 108 U/L (35-105); Anion Gap 28.8 (5-19); Aspartate Amino Transferase 160 U/L (0-32); Blood Urea Nitrogen 61 mg/dL (8-23); Calcium 8.5 mg/dL (8.5-10.5); Carbon Dioxide 20 mmol/L (22-29); Chloride 98 mmol/L (98-107); Cholesterol 132 mg/dL (0-200); Ferritin 185 ng/mL (15-150); Globulin 2.3 g/dL (1.3-4.6); Glucose 87 mg/dL (65-115); HDL Cholesterol 21 mg/dL (60-100); Iron 24 ug/dL (37-145); Magnesium 2.0 mg/dL (1.7-2.3); Osmolality Calculated 313 mOsm/kg (285-295); Potassium 3.8 mmol/L (3.5-5.1); Sodium 143 mmol/L (136-145); Total Iron Binding Capacity 228 mcg/dl; Total Protein 5.3 g/dL (6.6-8.7); Triglycerides 85 mg/dL (0-150); Unsaturated Iron Binding 204 ug/dL (112-347)
--- NOTE | 2025-08-09 08:13 | ECG_ITS ---
[facility] 2025-08-09 Pat Name: Karina Estes Department: Room: ICU10 Gender: Female Banking Supervisor: : 1950 Requested By: Javad Jones Order Number: [id number] Cooper MD: Humble Patiño M.D. Measurements Intervals [place] Rate: 92 P: 0 MO: 0 QRS: 76 QRSD: 80 T: 244 QT: 366 QTc: 453 Interpretive Statements ATRIAL FIBRILLATION ST DEVIATION AND MODERATE T-WAVE ABNORMALITY, CONSIDER LATERAL ISCHEMIA [-0.1+ mV T-WAVE IN I/aVL/V5/V6] Compared to ECG 08/08/2025 12:13:27 T-wave abnormality now present Possible ischemia now present Intraventricular conduction delay no longer present Electronically Signed On 08-09-2025 17:21:23 MARKET DEVELOPMENT DIRECTOR by Humble Patiño M.D. [email or web address]
[2025-08-09 08:42] LABS: Calcium 8.5 mg/dL (8.5-10.5)
[2025-08-09 09:24] LABS: ABG PCO2 34.4 mmHg (35-45); ABG PH Result 7.43 (7.35-7.45); Alveolar-Arterial Oxygen Gradi 15.9 mmHg (5-10); Arterial Blood Gas Hematocrit 30.0 % (37-47); Blood Gas Allen Test Pos; Blood Gas LPM 3.0 %; Blood Gas Operator Identificat GD; Blood Gas Sample Site Radial, right; Blood Gas Sample Type Arterial; Carboxyhemoglobin 1.6 %THgb (0.4-20.1); Glucose Level-ABG 93.0 mg/dL (70-115); HCO3 ABG 22.6 mmol/L (22-26); Ionized Calcium Level - ABG 1.0 mmol/L (1.1-1.4); Methemoglobin 0.2 % (0.4-1.5); Oxygen Saturation ABG 90.8; PO2 ABG 62.8 mmHg (80.0-100.0); PO2 FiO2 Ratio Arterial Blood 196; Potassium Level - ABG 3.8 mmol/L (3.5-5.0); Sodium Level - ABG 141.0 mmol/L (131-143)
--- NOTE | 2025-08-09 10:10 | PM.PN ---
Subjective Subjective: Patient was seen and examined she is more awake than yesterday however still remains confused not following commands and not able to give a history. Medications: Reviewed: Yes Medication Review Details: Current Medications Acetaminophen (Acetaminophen 325 Mg Tablet) 650 mg PO Q6H PRN PRN Reason: Mild/Mod Pain Or Temp >/= 101 Hydrocodone Bitart/Acetaminophen (Hydrocodone-Acetaminophen 10-325 Mg Tablet) 1 tab PO Q8H PRN PRN Reason: pain (scale score 7-10) Albuterol/Ipratropium (Ipratropium-Albuterol 3 Ml Neb) 3 ml INHALATION Q6H.RESP [facility] Last Admin: 08/09/25 07:56 Dose: 3 ml Aripiprazole (Aripiprazole 2 Mg Tablet) 2 mg PO DAILY [facility] Last Admin: 08/09/25 06:23 Dose: Not Given Budesonide (Budesonide 0.5 Mg/2 Ml Neb) 0.5 mg INHALATION BID.RESPIRATORY [facility] Last Admin: 08/09/25 07:56 Dose: 0.5 mg Ceftriaxone Sodium (Ceftriaxone 1,000 Mg Sdv) 1,000 mg IVP Q24H [facility]; Protocol Docusate Sodium (Docusate Sodium 100 Mg Capsule) 100 mg PO BID [facility] Last Admin: 08/09/25 06:22 Dose: Not Given Gabapentin (Gabapentin 100 Mg Capsule) 200 mg PO DAILY [facility] Last Admin: 08/09/25 06:22 Dose: Not Given Heparin Sodium (Porcine) (Heparin 5,000 Unit/Ml Inj 1 Ml) 5,000 unit SUBCUT Q12H [facility] Last Admin: 08/09/25 06:30 Dose: 5,000 unit Hydralazine HCl (Hydralazine 20 Mg/Ml Inj 1 Ml) 10 mg IVP Q4H PRN PRN Reason: hypertension Sodium Bicarbonate 50 meq/ (Sodium Chloride) 1,050 mls @ 50 mls/hr IV .Q21H [facility] Last Infusion: 08/09/25 04:27 Dose: 50 mls/hr DILTIAZEM HCL/D5W (Cardizem) 125 mg in 125 mls @ 0 mls/hr IV .Q0M [facility]; Protocol Last Admin: 08/09/25 06:30 Dose: 5 mg/hr, 5 mls/hr Lactulose (Lactulose Oral Liq 20 Gm/30 Ml Udc) 10 gm PO DAILY PRN; Protocol PRN Reason: Constipation (see protocol) Magnesium Hydroxide (Magnesium Hydroxide 30 Ml Udc) 30 ml PO DAILY PRN; Protocol PRN Reason: Constipation (see protocol) Metoprolol Tartrate (Metoprolol Tartrate 50 Mg Tablet) 25 mg PO BID [facility] Last Admin: 08/09/25 06:23 Dose: Not Given Metoprolol Tartrate (Metoprolol Tartrate 1 Mg/1 Ml Sdv 5 Ml) 5 mg IVP Q6H [facility] Last Admin: 08/09/25 09:02 Dose: 5 mg Morphine Sulfate (Morphine 4 Mg/Ml Sdv 1 Ml) 2 mg IVP Q4H PRN PRN Reason: SEVERE PAIN Ondansetron HCl (Ondansetron 2 Mg/Ml Sdv 2 Ml) 4 mg IVP Q6H PRN PRN Reason: vomiting, or N/V if npo Pantoprazole Sodium (Pantoprazole 40 Mg Sdv) 40 mg IVP Q24H [facility] Last Admin: 08/08/25 17:24 Dose: 40 mg Venlafaxine HCl (Venlafaxine Er (24hr) 75 Mg Capsule) 75 mg PO DAILY [facility] Vitals/I&O/Wt Last Vital Signs Temp 97.0 F L 08/09/25 01:40 Pulse 113 H 08/09/25 09:25 Resp 17 08/09/25 09:25 BP 146/120 08/09/25 09:25 Pulse Ox 93 08/09/25 09:25 O2 Del Method Nasal Cannula 08/09/25 07:47 O2 Flow Rate 3 08/09/25 07:47 08/08/25 08/09/25 08/09/25 22:59 06:59 14:59 Intake Total 2370 / 2370 1135 / 3505 Output Total 501 / 501 Balance 2370 / 2370 634 / 3004 Weight last 48 hrs Weight 67.086 kg Weight 67 kg Weight 66.5 kg Weight 72.121 kg Physical Exam Narrative: Vital signs noted. Patient comfortable in bed no apparent distress. using 3 L nasal cannula oxygen. HEENT normocephalic atraumatic. Neck is supple lungs are clear heart is regular and tachycardic. Abdomen is soft nontender nondistended positive bowel sounds extremities no edema. Dialysis access right subclavian. Neurologically responds to pain not following commands and remains lethargic. Urinary Catheter Management: Pugh: Cath Placed During This Visit: yes Reason for Continuing Indwelling Catheter: Acute Urinary Retention or Obstruction Urinary Catheter Date of Insertion: 08/08/25 Urinary Catheter Time of Insertion: 16:57 Data 08/09/25 06:18 08/09/25 06:18 Micro: Microbiology 08/08/25 14:05 Blood Culture - Preliminary Blood SPECIMEN COLLECTED 08/08/25 14:07 Blood Culture - Preliminary Blood SPECIMEN COLLECTED A&P Assessment and plan 1. Acute kidney injury superimposed on CKD: 74-year-old lady with depression atrophic left kidney CKD stage III baseline creatinine 1.8 mg/dL hypertension hyperlipidemia. Patient is here now with weakness and confusion and falls. 1. Acute kidney injury imaging reveals normal right kidney mild perinephric stranding no obstruction or left kidney severe atrophy. This is on the noncontrast CT scan. - Urinalysis is red slightly cloudy will repeat. She had 0-4 red cells 5-10 white cells 3-4 squamous epithelial cells - Patient also has anemia. Hemoglobin dropped from 15 at baseline to now 9.4. Her platelets decreased mildly overnight however she is not thrombocytopenic. Will check an LDH reticulocyte count and haptoglobin. I am concerned of possibility of TTP HUS. However more likely this is ATN. Remember if she has an atrophic left kidney and CKD stage III 2. Increased anion gap metabolic acidosis has improved 3. Hyperkalemia improved with dialysis 4. Patient has an elevated PTH and phosphorus this is more concerning for subacute versus chronic kidney disease. Patient was seen and examined using audiovisual equipment with the aid of a nurse. The patient's consented to telehealth and to dialysis if needed. Case discussed in detail with the patient's and with Dr. Jones Plan: Dialysis today check liver function tests, LDH reticulocyte count and haptoglobin. PDMP PDMP Reviewed: Not Reviewed Attestations Medical Necessity Statement*: SHABANA, AMS Time Spent in Patient Care: 16 - 35 minutes (>than 50% of time spent in counselling and/or direct pt care on unit). Coding Level of Care Code Acute Code for Chg Fwd Diagnoses Acute kidney injury superimposed on CKD N17.9; N18.9
[2025-08-09 11:07] LABS: Alanine Aminotransferase 89 U/L (0-33); Albumin Level 3.0 g/dL (3.5-5.2); Alkaline Phosphatase 111 U/L (35-105); Aspartate Amino Transferase 162 U/L (0-32); Globulin 2.4 g/dL (1.3-4.6); Total Protein 5.4 g/dL (6.6-8.7)
--- NOTE | 2025-08-09 12:38 | P.PN_ITS ---
Vitals/I&O/Wt Last Vital Signs Temp 97.0 F L 08/09/25 01:40 Pulse 113 H 08/09/25 09:25 Resp 17 08/09/25 09:25 BP 146/120 08/09/25 09:25 Pulse Ox 93 08/09/25 09:25 O2 Del Method Nasal Cannula 08/09/25 07:47 O2 Flow Rate 3 08/09/25 07:47 08/08/25 08/09/25 08/09/25 22:59 06:59 14:59 Intake Total 2370 / 2370 1135 / 3505 Output Total 501 / 501 Balance 2370 / 2370 634 / 3004 Weight last 48 hrs Weight 67.086 kg Weight 67 kg Weight 66.5 kg Weight 72.121 kg Physical Exam 2 Narrative: General: No acute distress, awake alert x 1, dehydrated HEENT: PERRLA, pupils bilaterally equal and reactive Chest: Normal vesicular breath sounds, occasional rhonchi, equal good air entry bilaterally CVS: S1-S2 regular, no murmurs, tachycardia, no gallops, no rubs Abdomen: Soft, nontender, no organomegaly, bowel sounds present Neuro: No focal deficits, no facial deformity, moving all limbs Urinary Catheter Management: Pugh: Cath Placed During This Visit: yes Reason for Continuing Indwelling Catheter: Acute Urinary Retention or Obstruction Urinary Catheter Date of Insertion: 08/08/25 Urinary Catheter Time of Insertion: 16:57 Data 08/09/25 06:18 08/09/25 06:18 Micro: Microbiology 08/08/25 14:05 Blood Culture - Preliminary Blood SPECIMEN COLLECTED 08/08/25 14:07 Blood Culture - Preliminary Blood SPECIMEN COLLECTED A&P Assessment and plan 1. Acute renal failure: 2. CKD stage 3b, GFR 30-44 ml/min: 3. Uremia: 4. Atrial fibrillation with RVR: 5. Transient alteration of awareness: 6. Transaminitis: 7. Sepsis: 8. Pneumonia: 9. Primary hypertension: 10. Anemia in stage 3a chronic kidney disease: 11. Chronic obstructive pulmonary disease, unspecified COPD type: 12. Dementia: 13. Hyperkalemia: 14. High anion gap metabolic acidosis: Plan: 74-year-old with history of dementia presents to the ER today because of worsening mentation found to have acute renal failure with hyperkalemia and metabolic acidosis with concerns for sepsis Acute renal failure: Does seem to have baseline CKD. Baseline creatinine around 1.8. Appreciate nephrology recommendations. Underwent emergent dialysis last night. Appreciate surgical help with dialysis catheter placement. Minimal urine output. Strict improved charting, daily weights. ABG shows resolution of metabolic acidosis. Hyperkalemia resolved. Switch from sodium bicarb to NS at 50 cc/h for now. Possible repeat dialysis today. Follow-up urine studies. Transaminitis: Patient does have transaminitis with elevated bilirubin levels. Appreciate direct bilirubin level. Elevated alkaline phosphatase. Check LDH, haptoglobin as patient does have anemia. Anemia most likely of chronic disease. Less likely hemolysis. Will check liver ultrasound for gallbladder pathology though not seen on CT abdomen pelvis. A-fib with RVR: Not a known diagnosis. Could be in setting of sepsis. Continue with Cardizem drip for now. Hold off on amiodarone drip given transaminitis. Does take metoprolol at home. Can start on IV metoprolol 5 mg every 4 hours. Wean Cardizem drip accordingly. Hold metoprolol for heart rate below 90 bpm. Sepsis: SIRS: Tachycardic, Leukocytosis Source: Pneumonia End organ damage: Acute infectious encephalopathy, acute renal failure, A-fib with RVR Lactic acid elevated. Patient did not receive full 30 mL/kg BW given concerns for renal failure. Fluid as above. Monitor blood pressures. Keep mean artery pressure 65 mmHg. Follow-up blood culture, negative MRSA swab, appreciate trend procalcitonin, pending bacterial antigen. Continue with empiric IV ceftriaxone 1 g daily for now. Hypertension: Goal blood pressure less than 140/90 mmHg. Blood pressure is elevated. Metoprolol and Cardizem as above. IV hydralazine 10 mg every 4 hours as needed for systolic more than 160 mmHg. Echocardiogram pending. Altered mental status: Could be in setting of worsening dementia. Can be in setting of uremia, sepsis. Will check ammonia levels. Appreciate CT head. CODE STATUS: Discussed detail with the patient at bedside. Has been a DPOA. Full code N.p.o. for now. Speech evaluation. Advance diet accordingly. Protonix for PUD prophylaxis. De-escalate antibiotics as per culture results. PDMP PDMP Reviewed: Not Reviewed Attestations 2 Medical Necessity Statement*: Requires further hospitalization for management of altered mental status in setting of uremia, sepsis, acute renal failure requiring urgent dialysis, A-fib with RVR Diagnoses Acute renal failure N17.9 CKD stage 3b, GFR 30-44 ml/min N18.32 Uremia N19 Atrial fibrillation with RVR I48.91 Transient alteration of awareness R40.4 Altered mental status type: transient alteration of awareness Transaminitis R74.01 Sepsis A41.9 Pneumonia J18.9 Primary hypertension I10 Hypertension type: primary hypertension Anemia in stage 3a chronic kidney disease N18.31; D63.1 Chronic kidney disease stage: stage 3 (moderate) Chronic kidney disease stage 3 subtype: stage 3a (GFR 45-59) Chronic obstructive pulmonary disease, unspecified COPD type J44.9 COPD type: unspecified COPD Dementia F03.90 Hyperkalemia E87.5 High anion gap metabolic acidosis E87.29
--- NOTE | 2025-08-09 12:40 | USR_ITS ---
PROCEDURE INFORMATION: Exam: US Abdomen, Limited; Right Upper Quadrant Exam date and time: 08/09/2025 6:10 PM Age: 74 years old Clinical indication: Condition or disease; Liver condition; Other: Transam; Nitis; Prior surgery; Surgery date: 6+ months; Surgery type: Cholecystitis; Additional info: Transaminitis with elevated bili, PT getting dialysis at 1730 pd TECHNIQUE: Imaging protocol: Real time ultrasound of the abdomen with image documentation. Limited exam focused on the right upper quadrant. COMPARISON: CT kidney stone [id number] 08/08/2025 1:54 PM FINDINGS: Liver: Questionable nodular contour of the liver, could be related to cirrhosis. Gallbladder: Cholecystectomy. Biliary ducts: CBD not visualized. Pancreas: Pancreas not seen. Right kidney: Normal. No mass. No hydronephrosis. Limited views of kidney. Soft tissues: Limited study due to habitus and overlying bowel gas. US/US liver [id number] IMPRESSION: No acute findings within limitations of the study.
--- NOTE | 2025-08-09 14:52 | USCV_ITS ---
Karina Estes Age: 74 Gender: F : 1950 Exam Date: 08/09/2025 21:48 Ordering Phys: Javad Jones MD Technologist: KARI [place]am [place] [facility] [place]: chf BP: 159 / 102 HR: 107 Rhythm: Atrial fibrillation Technical Quality: Adequate MEASUREMENTS (Male / Female) Normal Values 2D ECHO LV Diastolic Diameter PLAX 3.7 cm 4.2 - 5.9 / 3.9 - 5.3 cm IVS Diastolic Thickness 1.4 cm 0.6 - 1.0 / 0.6 - 0.9 cm IVS Systolic Thickness 1.6 cm LVPW Diastolic Thickness 1.5 cm 0.6 - 1.0 / 0.6 - 0.9 cm LVPW Systolic Thickness 1.6 cm LVOT Diameter 1.7 cm LV Ejection Fraction 2D Teich 57.2 % LV Ejection Fraction MOD 4C 62.9 % LV Ejection Fraction MOD 2C 63.0 % LV Ejection Fraction 2C AL 63.3 % LA Diameter 6.5 cm LA Sys Volume AL 123.0 cm cubed LA Sys Volume Index AL 70.8 cm cubed/m squared Aorta at Sinotubular Diameter 3.3 cm IVC Diameter 2.3 cm M-MODE LA Ao Ratio MM 2.0 AV Cusp Separation MM 1.8 cm DOPPLER AV Peak Velocity 89.0 cm/s LVOT Peak Velocity 59.0 cm/s AV Area Cont Eq vti 1.8 cm squared AV Area Cont Eq pk 1.4 cm squared MV Peak Velocity 149.0 cm/s MV Area PHT 5.8 cm squared Mitral E to A Ratio 0.0 TV Peak Velocity 269.3 cm/s TR Peak Velocity 294.0 cm/s TR Peak Gradient 34.6 mmHg TV Peak E Velocity 81.0 cm/s PV Peak Velocity 74.0 cm/s FINDINGS Left Ventricle Normal left ventricular size, systolic function and wall thickness, with no regional wall motion abnormalities. Left ventricular ejection fraction is estimated at 60 %. In the presence of atrial fibrillation diastolic function cannot be assessed accurately. Right Ventricle Normal right ventricular size. Moderate pulmonary hypertension, RVSP 65 mmHg. Right Atrium Moderately increased right atrial size. Left Atrium Severely increased left atrial size. IA Septum Normal appearance of the interatrial septum. Mitral Valve Mildly thickened mitral valve. No mitral valve stenosis. Severe mitral valve regurgitation. Aortic Valve Normal aortic valve structure. No aortic valve stenosis or regurgitation. Tricuspid Valve Severe tricuspid valve regurgitation. Pulmonic Valve Mild pulmonary valve regurgitation. Pericardium No pericardial effusion. Aorta Normal diameter of the aortic root and ascending thoracic aorta. IVC Dilated IVC with decreased respiratory variation. Moderately dilated IVC. CONCLUSIONS Normal left ventricular size, systolic function and wall thickness, with no regional wall motion abnormalities. Left ventricular ejection fraction is estimated at 60 %. In the presence of atrial fibrillation diastolic function cannot be assessed accurately. Normal right ventricular size. Moderate pulmonary hypertension, RVSP 65 mmHg. Severely increased left atrial size. Moderately increased right atrial size. Mildly thickened mitral valve. No mitral valve stenosis. Severe mitral valve regurgitation. Severe tricuspid valve regurgitation. There is no pericardial effusion. Right atrial pressure is around 20 mm of mercury. Jodi Hernandez MD (Electronically Signed) Final Date: 10 August 2025 17:21 S
[2025-08-09 15:56] LABS: Ammonia 36 umol/L (11-51)
[2025-08-09 15:58] LABS: Anion Gap 23.9 (5-19); Blood Urea Nitrogen 58 mg/dL (8-23); Calcium 8.2 mg/dL (8.5-10.5); Carbon Dioxide 22 mmol/L (22-29); Chloride 99 mmol/L (98-107); Glucose 158 mg/dL (65-115); Osmolality Calculated 311 mOsm/kg (285-295); Potassium 3.9 mmol/L (3.5-5.1); Sodium 141 mmol/L (136-145)
[2025-08-09] MEDS: cefTRIAXone 1,000 mg SDV 1000 MG IVP (17:29)
[2025-08-09] MEDS: pantoprazole 40 mg SDV IVP (17:31)
[2025-08-09 20:19] LABS: BETA 2 GLOBULIN 0.4 g/dL (0.2-0.5)
[2025-08-09 21:59] LABS: Coronavirus 229E,HKU1,NL63,OC4 Not Detected (NOT DETECT); Parainfluenza Virus Type 1 Not Detected (NOT DETECT); Parainfluenza Virus Type 2 Not Detected (NOT DETECT); Parainfluenza Virus Type 3 Not Detected (NOT DETECT); Parainfluenza Virus Type 4 Not Detected (NOT DETECT); SARS-COV-2 Not Detected (NOT DETECT)
[2025-08-10] VITALS (58 sets, daily range): BP systolic 119–160; BP diastolic 67–114; PULSE 75–113; RESP 12–35; TEMP 35.9–36.4; O2SAT 89–95; BMI 25.5
[2025-08-10] MEDS: DILTIAZEM HCL/D5W 125 MG/125 ML BAG 7.5 MG IV (00:08)
[2025-08-10] MEDS: metoprolol tartrate 1 mg/1 mL SDV 5 mL 5 MG IVP (01:42)
[2025-08-10 02:53] LABS: Hematocrit 29.0 % (36-47); Hemoglobin 9.60 g/dL (11.27-16.99); Mean Corpuscular HGB Conc 33.1 g/dL (30-55); Mean Corpuscular Hemoglobin 29.5 pg (27-33); Mean Corpuscular Volume 89.2 fl (85-98); Nucleated Red Blood Cells % 0.3 %; Platelet Count 191 10^3/cmm (157-399); Red Blood Count 3.25 10^6/uL (3.85-5.65); White Blood Count 13.82 10^3/uL (3.29-11.43)
[2025-08-10 03:15] LABS: Magnesium 1.9 mg/dL (1.7-2.3)
[2025-08-10 03:16] LABS: Alanine Aminotransferase 115 U/L (0-33); Albumin Level 3.0 g/dL (3.5-5.2); Alkaline Phosphatase 111 U/L (35-105); Anion Gap 20.6 (5-19); Aspartate Amino Transferase 150 U/L (0-32); Blood Urea Nitrogen 31 mg/dL (8-23); Calcium 8.4 mg/dL (8.5-10.5); Carbon Dioxide 24 mmol/L (22-29); Chloride 102 mmol/L (98-107); Globulin 2.3 g/dL (1.3-4.6); Glucose 113 mg/dL (65-115); Osmolality Calculated 303 mOsm/kg (285-295); Potassium 3.6 mmol/L (3.5-5.1); Sodium 143 mmol/L (136-145); Total Protein 5.3 g/dL (6.6-8.7)
[2025-08-10] MEDS: heparin 5,000 unit/mL INJ 1 mL 5000 UNIT SUBCUT ×2 (05:32→17:21)
[2025-08-10] MEDS: venlafaxine ER (24HR) 75 mg Capsule PO (05:49)
--- NOTE | 2025-08-10 06:46 | PC.NURSE ---
D/c metoprolol: Dr. Stewart assessed patient at bedside and gave this nurse the following verbal orders- -d/c IVP metoprolol -start PO cardizem 60mg Q6h
--- NOTE | 2025-08-10 06:54 | P.PN_ITS ---
Subjective 2 Subjective: more awake, responsive, interactive, follows commands. denies any specific complaints Medications: Reviewed: Yes Medication Review Details: Current Medications Acetaminophen (Acetaminophen 325 Mg Tablet) 650 mg PO Q6H PRN PRN Reason: Mild/Mod Pain Or Temp >/= 101 Hydrocodone Bitart/Acetaminophen (Hydrocodone-Acetaminophen 10-325 Mg Tablet) 1 tab PO Q8H PRN PRN Reason: pain (scale score 7-10) Albuterol/Ipratropium (Ipratropium-Albuterol 3 Ml Neb) 3 ml INHALATION Q6H.RESP [facility] Last Admin: 08/10/25 02:15 Dose: 3 ml Aripiprazole (Aripiprazole 2 Mg Tablet) 2 mg PO DAILY [facility] Last Admin: 08/10/25 05:41 Dose: 2 mg Budesonide (Budesonide 0.5 Mg/2 Ml Neb) 0.5 mg INHALATION BID.RESPIRATORY [facility] Last Admin: 08/09/25 19:53 Dose: 0.5 mg Ceftriaxone Sodium (Ceftriaxone 1,000 Mg Sdv) 1,000 mg IVP Q24H [facility]; Protocol Last Admin: 08/09/25 17:29 Dose: 1,000 mg Diltiazem HCl (Diltiazem 60 Mg Tablet) 60 mg PO Q6H [facility] Last Admin: 08/10/25 05:26 Dose: 60 mg Docusate Sodium (Docusate Sodium 100 Mg Capsule) 100 mg PO BID [facility] Last Admin: 08/10/25 05:51 Dose: 100 mg Gabapentin (Gabapentin 100 Mg Capsule) 200 mg PO DAILY [facility] Last Admin: 08/10/25 05:43 Dose: 200 mg Heparin Sodium (Porcine) (Heparin 5,000 Unit/Ml Inj 1 Ml) 5,000 unit SUBCUT Q12H [facility] Last Admin: 08/10/25 05:32 Dose: 5,000 unit Hydralazine HCl (Hydralazine 20 Mg/Ml Inj 1 Ml) 10 mg IVP Q4H PRN PRN Reason: hypertension Last Admin: 08/09/25 20:41 Dose: 10 mg Sodium Bicarbonate 50 meq/ (Sodium Chloride) 1,050 mls @ 50 mls/hr IV .Q21H [facility] Last Admin: 08/10/25 00:06 Dose: 50 mls/hr DILTIAZEM HCL/D5W (Cardizem) 125 mg in 125 mls @ 0 mls/hr IV .Q0M [facility]; Protocol Last Titration: 08/10/25 05:45 Dose: 0 mg/hr, 0 mls/hr Lactulose (Lactulose Oral Liq 20 Gm/30 Ml Udc) 10 gm PO DAILY PRN; Protocol PRN Reason: Constipation (see protocol) Magnesium Hydroxide (Magnesium Hydroxide 30 Ml Udc) 30 ml PO DAILY PRN; Protocol PRN Reason: Constipation (see protocol) Metoprolol Tartrate (Metoprolol Tartrate 50 Mg Tablet) 25 mg PO BID [facility] Last Admin: 08/10/25 05:38 Dose: 25 mg Morphine Sulfate (Morphine 4 Mg/Ml Sdv 1 Ml) 2 mg IVP Q4H PRN PRN Reason: SEVERE PAIN Ondansetron HCl (Ondansetron 2 Mg/Ml Sdv 2 Ml) 4 mg IVP Q6H PRN PRN Reason: vomiting, or N/V if npo Pantoprazole Sodium (Pantoprazole 40 Mg Sdv) 40 mg IVP Q24H [facility] Last Admin: 08/09/25 17:31 Dose: 40 mg Venlafaxine HCl (Venlafaxine Er (24hr) 75 Mg Capsule) 75 mg PO DAILY [facility] Last Admin: 08/10/25 05:49 Dose: 75 mg Vitals/I&O/Wt Last Vital Signs Temp 96.9 F L 08/10/25 04:30 Pulse 85 08/10/25 06:00 Resp 35 H 08/10/25 04:30 BP 133/87 08/10/25 04:30 Pulse Ox 90 08/10/25 04:30 O2 Del Method Room Air 08/10/25 04:30 O2 Flow Rate 3 08/10/25 02:15 08/09/25 08/09/25 08/10/25 14:59 22:59 06:59 Intake Total 1459.667 / 1459.667 580.458 / 2040.125 Output Total 2500 / 2500 0 / 2500 Balance -1040.333 / -1040.333 580.458 / -459.875 Weight last 48 hrs Weight 65.5 kg Weight 66 kg Weight 67.086 kg Weight 67 kg Weight 66.5 kg Weight 72.121 kg Physical Exam 2 Narrative: Vital signs noted. Patient comfortable in bed no apparent distress. using 3 L nasal cannula oxygen. HEENT normocephalic atraumatic. Neck is supple lungs are clear heart is regular and tachycardic. Abdomen is soft nontender nondistended positive bowel sounds extremities no edema. Dialysis access right subclavian. Neurologically responsive, moves, alert, awake Urinary Catheter Management: Pugh: Cath Placed During This Visit: yes Reason for Continuing Indwelling Catheter: Accurate Measurement of Urinary Output in Critically Ill Patients Urinary Catheter Date of Insertion: 08/08/25 Urinary Catheter Time of Insertion: 16:57 Data 08/10/25 02:39 08/10/25 02:39 Micro: Microbiology 08/08/25 14:07 Blood Culture - Preliminary Blood NEGATIVE TO DATE 08/08/25 14:05 Blood Culture - Preliminary Blood NEGATIVE TO DATE A&P Assessment and plan 1. Acute kidney injury superimposed on CKD: 74-year-old lady with depression atrophic left kidney CKD stage III baseline creatinine 1.8 mg/dL hypertension hyperlipidemia. Patient is here now with weakness and confusion and falls. 1. Acute kidney injury imaging reveals normal right kidney mild perinephric stranding no obstruction or left kidney severe atrophy. This is on the noncontrast CT scan. - Urinalysis is red slightly cloudy will repeat. She had 0-4 red cells 5-10 white cells 3-4 squamous epithelial cells - Patient also has anemia. Hemoglobin dropped from 15 at baseline to now 9.4. Her platelets decreased mildly. her hgb is stable, -normal haptoglbin -she is s/p HD x 2. remains oligo-anuric 2. Increased anion gap metabolic acidosis has improved 3. anemia- hgb stable. haptoglobin 162, ferritin 185, % sat 10 -start iv iron 4. Patient has an elevated PTH and phosphorus this is more concerning for subacute versus chronic kidney disease. 5. mild inc LFTs Patient was seen and examined using audiovisual equipment with the aid of a nurse. The patient's consented to telehealth and to dialysis if needed. Case discussed in detail with the patient Plan: Dialysis today check liver function tests, LDH reticulocyte count and haptoglobin. PDMP PDMP Reviewed: Not Reviewed Attestations 2 Medical Necessity Statement*: aniyah, Time Spent in Patient Care: 16 - 35 minutes (>than 50% of time sp ent in counselling and/or direct pt care on unit) . Coding Level of Care Code Acute Code for Chg Fwd Diagnoses Acute kidney injury superimposed on CKD N17.9; N18.9
[2025-08-10] MEDS: ferric gluconate 125 MG in sodium chloride 0.9% (100 ml) 100 ML 110 MG IV (09:23)
--- NOTE | 2025-08-10 12:30 | PC.SOCIAL ---
IMM UPDATED IMM dated and initialed, copy given to patient and copy placed in chart.
--- NOTE | 2025-08-10 12:38 | P.PN_ITS ---
Subjective 2 Subjective: No acute events overnight. Patient has remained hemodynamically stable and afebrile. Slightly more awake today. Alert to self. at bedside. Patient denies any nausea, vomiting, headache. No urine output. Vitals/I&O/Wt Last Vital Signs Temp 96.9 F L 08/10/25 04:30 Pulse 88 08/10/25 08:04 Resp 15 08/10/25 08:00 BP 128/80 08/10/25 08:00 Pulse Ox 93 08/10/25 08:00 O2 Del Method Nasal Cannula 08/10/25 08:00 O2 Flow Rate 3 08/10/25 08:00 08/09/25 08/10/25 08/10/25 22:59 06:59 14:59 Intake Total 1459.667 / 1459.667 580.458 / 2040.125 0 / 0 Output Total 2500 / 2500 0 / 2500 Balance -1040.333 / -1040.333 580.458 / -459.875 0 / 0 Weight last 48 hrs Weight 65.5 kg Weight 66 kg Weight 67.086 kg Weight 67 kg Weight 66.5 kg Weight 72.121 kg Physical Exam 2 Narrative: General: No acute distress, awake alert x 1, dehydrated HEENT: PERRLA, pupils bilaterally equal and reactive Chest: Normal vesicular breath sounds, occasional rhonchi, equal good air entry bilaterally CVS: S1-S2 regular, no murmurs, tachycardia, no gallops, no rubs Abdomen: Soft, nontender, no organomegaly, bowel sounds present Neuro: No focal deficits, no facial deformity, moving all limbs Urinary Catheter Management: Pugh: Cath Placed During This Visit: yes Reason for Continuing Indwelling Catheter: Accurate Measurement of Urinary Output in Critically Ill Patients Urinary Catheter Date of Insertion: 08/08/25 Urinary Catheter Time of Insertion: 16:57 Data 08/10/25 02:39 08/10/25 02:39 Micro: Microbiology 08/08/25 14:07 Blood Culture - Preliminary Blood NEGATIVE TO DATE 08/08/25 14:05 Blood Culture - Preliminary Blood NEGATIVE TO DATE A&P Assessment and plan 1. Acute renal failure: 2. CKD stage 3b, GFR 30-44 ml/min: 3. Uremia: 4. Atrial fibrillation with RVR: 5. Transient alteration of awareness: 6. Transaminitis: 7. Sepsis: 8. Pneumonia: 9. Primary hypertension: 10. Anemia in stage 3a chronic kidney disease: 11. Chronic obstructive pulmonary disease, unspecified COPD type: 12. Dementia: 13. Hyperkalemia: 14. High anion gap metabolic acidosis: 15. Anuria: Plan: 74-year-old with history of dementia presents to the ER today because of worsening mentation found to have acute renal failure with hyperkalemia and metabolic acidosis with concerns for sepsis Acute renal failure: Does seem to have baseline CKD. Baseline creatinine around 1.8. Appreciate nephrology recommendations. Underwent emergent dialysis last night. Appreciate surgical help with dialysis catheter placement. Minimal urine output. Strict improved charting, daily weights. ABG shows resolution of metabolic acidosis. Hyperkalemia resolved. Switch from sodium bicarb to NS at 50 cc/h for now. Possible repeat dialysis today. Follow-up urine studies. Transaminitis: Patient does have transaminitis with elevated bilirubin levels. Appreciate direct bilirubin level. Elevated alkaline phosphatase. Check LDH, haptoglobin as patient does have anemia. Anemia most likely of chronic disease. Less likely hemolysis. Will check liver ultrasound for gallbladder pathology though not seen on CT abdomen pelvis. A-fib with RVR: Not a known diagnosis. Could be in setting of sepsis. Continue with Cardizem drip for now. Hold off on amiodarone drip given transaminitis. Does take metoprolol at home. Can start on IV metoprolol 5 mg every 4 hours. Wean Cardizem drip accordingly. Hold metoprolol for heart rate below 90 bpm. Sepsis: SIRS: Tachycardic, Leukocytosis Source: Pneumonia End organ damage: Acute infectious encephalopathy, acute renal failure, A-fib with RVR Lactic acid elevated. Patient did not receive full 30 mL/kg BW given concerns for renal failure. Fluid as above. Monitor blood pressures. Keep mean artery pressure 65 mmHg. Follow-up blood culture, negative MRSA swab, appreciate trend procalcitonin, pending bacterial antigen. Continue with empiric IV ceftriaxone 1 g daily for now. Hypertension: Goal blood pressure less than 140/90 mmHg. Blood pressure is elevated. Metoprolol and Cardizem as above. IV hydralazine 10 mg every 4 hours as needed for systolic more than 160 mmHg. Echocardiogram pending. Altered mental status: Could be in setting of worsening dementia. Can be in setting of uremia, sepsis. Will check ammonia levels. Appreciate CT head. CODE STATUS: Discussed detail with the patient at bedside. Has been a DPOA. Full code N.p.o. for now. Speech evaluation. Advance diet accordingly. Protonix for PUD prophylaxis. Plan for the day: Appreciate nephrology recommendations. Plan to give dialysis holiday and monitor renal functions. Patient has remained anuric. Repeat BMP in AM. Goal blood pressure less than 140/90 mmHg. Heart rate better controlled. Increase metoprolol to 50 mg oral twice daily. Change Cardizem to 30 mg 4 times daily. Continue IV hydralazine as needed for systolic of more than 1 6 mmHg. Infectious cause less likely. Follow-up blood culture. For now continue IV ceftriaxone to finish a 5-day course. Advance diet as per speech evaluation. PT/OT evaluation. Echocardiogram done. Results awaited. Discussed in detail with the patient's /DPOA at bedside. We discussed unfortunately it seems patient's renal functions are not improving and she has not had any urine output since admission which puts her at a higher risk of long-term dialysis. verbalized understanding. We did discuss that given her significant baseline dementia options on discharge would be to continue dialysis as an outpatient versus hospice. verbalized understanding and would think further before making a decision. PDMP PDMP Reviewed: Not Reviewed Attestations 2 Medical Necessity Statement*: Requires further hospitalization for management of acute renal failure with anuria requiring hemodialysis, A-fib with RVR Diagnoses Acute renal failure N17.9 CKD stage 3b, GFR 30-44 ml/min N18.32 Uremia N19 Atrial fibrillation with RVR I48.91 Transient alteration of awareness R40.4 Altered mental status type: transient alteration of awareness Transaminitis R74.01 Sepsis A41.9 Pneumonia J18.9 Primary hypertension I10 Hypertension type: primary hypertension Anemia in stage 3a chronic kidney disease N18.31; D63.1 Chronic kidney disease stage: stage 3 (moderate) Chronic kidney disease stage 3 subtype: stage 3a (GFR 45-59) Chronic obstructive pulmonary disease, unspecified COPD type J44.9 COPD type: unspecified COPD Dementia F03.90 Hyperkalemia E87.5 High anion gap metabolic acidosis E87.29 Anuria R34
[2025-08-10 14:30] LABS: KAPPA LIGHT CHAIN, FREE, SERUM 130.0 mg/L (3.3-19.4); KAPPA/LAMBDA LIGHT CHAINS FREE 1.04 (0.26-1.65); LAMBDA LIGHT CHAIN, FREE, SERU 125.3 mg/L (5.7-26.3)
[2025-08-10] MEDS: pantoprazole 40 mg SDV IVP (17:21)
[2025-08-10] MEDS: cefTRIAXone 1,000 mg SDV 1000 MG IVP (17:21)
[2025-08-10] MEDS: morphine 4 mg/mL SDV 1 mL 2 MG IVP ×2 (19:36→23:27)
[2025-08-10] MEDS: HYDROcodone-acetaminophen 10-325 mg Tablet 1 TAB PO (20:50)
[2025-08-11] VITALS (60 sets, daily range): BP systolic 124–164; BP diastolic 74–128; PULSE 82–141; RESP 12–23; TEMP 35.9–36.9; O2SAT 85–96
[2025-08-11 03:44] LABS: Hematocrit 30.2 % (36-47); Hemoglobin 9.70 g/dL (11.27-16.99); Mean Corpuscular HGB Conc 32.1 g/dL (30-55); Mean Corpuscular Hemoglobin 28.7 pg (27-33); Mean Corpuscular Volume 89.3 fl (85-98); Nucleated Red Blood Cells % 0.4 %; Platelet Count 198 10^3/cmm (157-399); Red Blood Count 3.38 10^6/uL (3.85-5.65); White Blood Count 12.56 10^3/uL (3.29-11.43)
[2025-08-11 04:05] LABS: Alanine Aminotransferase 103 U/L (0-33); Albumin Level 3.2 g/dL (3.5-5.2); Alkaline Phosphatase 130 U/L (35-105); Anion Gap 18.3 (5-19); Aspartate Amino Transferase 80 U/L (0-32); Blood Urea Nitrogen 49 mg/dL (8-23); Calcium 8.7 mg/dL (8.5-10.5); Carbon Dioxide 26 mmol/L (22-29); Chloride 96 mmol/L (98-107); Globulin 2.3 g/dL (1.3-4.6); Glucose 116 mg/dL (65-115); Magnesium 2.0 mg/dL (1.7-2.3); Osmolality Calculated 298 mOsm/kg (285-295); Potassium 3.3 mmol/L (3.5-5.1); Sodium 137 mmol/L (136-145); Total Protein 5.5 g/dL (6.6-8.7)
[2025-08-11] MEDS: heparin 5,000 unit/mL INJ 1 mL 5000 UNIT SUBCUT ×2 (04:41→15:50)
[2025-08-11] MEDS: venlafaxine ER (24HR) 75 mg Capsule PO (04:41)
[2025-08-11] MEDS: morphine 4 mg/mL SDV 1 mL 2 MG IVP ×2 (04:56→16:09)
[2025-08-11 06:14] LABS: PROTEIN, TOTAL 5.0 g/dL (6.1-8.1)
[2025-08-11] MEDS: ferric gluconate 125 MG in sodium chloride 0.9% (100 ml) 100 ML 110 MG IV (07:42)
--- NOTE | 2025-08-11 10:11 | PM.PN ---
Subjective Subjective: Patient is feeling better she is awake alert sitting eating no nausea no vomiting no diarrhea no chest pain. Medications: Reviewed: Yes Medication Review Details: Current Medications Acetaminophen (Acetaminophen 325 Mg Tablet) 650 mg PO Q6H PRN PRN Reason: Mild/Mod Pain Or Temp >/= 101 Hydrocodone Bitart/Acetaminophen (Hydrocodone-Acetaminophen 10-325 Mg Tablet) 1 tab PO Q8H PRN PRN Reason: pain (scale score 7-10) Last Admin: 08/10/25 20:50 Dose: 1 tab Albuterol/Ipratropium (Ipratropium-Albuterol 3 Ml Neb) 3 ml INHALATION Q6H.[facility] Last Admin: 08/11/25 07:34 Dose: 3 ml Aripiprazole (Aripiprazole 2 Mg Tablet) 2 mg PO DAILY [facility] Last Admin: 08/11/25 04:41 Dose: 2 mg Budesonide (Budesonide 0.5 Mg/2 Ml Neb) 0.5 mg INHALATION BID.RESPIRATORY [facility] Last Admin: 08/11/25 07:34 Dose: 0.5 mg Ceftriaxone Sodium (Ceftriaxone 1,000 Mg Sdv) 1,000 mg IVP Q24H [facility]; Protocol Stop: 08/14/25 14:59 Last Admin: 08/10/25 17:21 Dose: 1,000 mg Diltiazem HCl (Diltiazem 30 Mg Tablet) 30 mg PO QID [facility] Last Admin: 08/11/25 04:41 Dose: 30 mg Docusate Sodium (Docusate Sodium 100 Mg Capsule) 100 mg PO BID [facility] Last Admin: 08/11/25 04:41 Dose: 100 mg Gabapentin (Gabapentin 100 Mg Capsule) 200 mg PO DAILY [facility] Last Admin: 08/11/25 04:41 Dose: 200 mg Heparin Sodium (Porcine) (Heparin 5,000 Unit/Ml Inj 1 Ml) 5,000 unit SUBCUT Q12H [facility] Last Admin: 08/11/25 04:41 Dose: 5,000 unit Hydralazine HCl (Hydralazine 20 Mg/Ml Inj 1 Ml) 10 mg IVP Q4H PRN PRN Reason: hypertension Last Admin: 08/09/25 20:41 Dose: 10 mg Ferric Sodium Gluconate 125 mg (/ Sodium Chloride) 110 mls @ 110 mls/hr IV Q24H [facility] Stop: 08/17/25 08:29 Last Infusion: 08/11/25 08:42 Dose: Infused Lactulose (Lactulose Oral Liq 20 Gm/30 Ml Udc) 10 gm PO DAILY PRN; Protocol PRN Reason: Constipation (see protocol) Magnesium Hydroxide (Magnesium Hydroxide 30 Ml Udc) 30 ml PO DAILY PRN; Protocol PRN Reason: Constipation (see protocol) Metoprolol Tartrate (Metoprolol Tartrate 50 Mg Tablet) 50 mg PO BID [facility] Last Admin: 08/11/25 04:41 Dose: 50 mg Morphine Sulfate (Morphine 4 Mg/Ml Sdv 1 Ml) 2 mg IVP Q4H PRN PRN Reason: SEVERE PAIN Last Admin: 08/11/25 04:56 Dose: 2 mg Ondansetron HCl (Ondansetron 2 Mg/Ml Sdv 2 Ml) 4 mg IVP Q6H PRN PRN Reason: vomiting, or N/V if npo Pantoprazole Sodium (Pantoprazole 40 Mg Sdv) 40 mg IVP Q24H [facility] Last Admin: 08/10/25 17:21 Dose: 40 mg Venlafaxine HCl (Venlafaxine Er (24hr) 75 Mg Capsule) 75 mg PO DAILY [facility] Last Admin: 08/11/25 04:41 Dose: 75 mg Vitals/I&O/Wt Last Vital Signs Temp 97.7 F 08/11/25 09:13 Pulse 103 H 08/11/25 08:30 Resp 13 08/11/25 08:30 BP 138/112 08/11/25 08:30 Pulse Ox 92 08/11/25 08:30 O2 Del Method Nasal Cannula 08/11/25 08:30 O2 Flow Rate 5 08/11/25 07:38 08/10/25 08/11/25 08/11/25 22:59 06:59 14:59 Intake Total 590 / 590 240 / 830 310 / 310 Balance 590 / 590 240 / 830 310 / 310 Weight last 48 hrs Weight 68.5 kg Weight 65.5 kg Weight 66 kg Physical Exam Narrative: Vital signs noted. Patient comfortable in bed no apparent distress. using nasal cannula oxygen. HEENT normocephalic atraumatic. Neck is supple lungs are clear heart is regular and tachycardic. Abdomen is soft nontender nondistended positive bowel sounds extremities no edema. Dialysis access right subclavian. Neurologically more awake alert oriented following commands interactive Urinary Catheter Management: Pugh: Cath Placed During This Visit: yes Reason for Continuing Indwelling Catheter: Accurate Measurement of Urinary Output in Critically Ill Patients Urinary Catheter Date of Insertion: 08/08/25 Urinary Catheter Time of Insertion: 16:57 Data 08/11/25 03:24 08/11/25 03:24 A&P Assessment and plan 1. Acute kidney injury superimposed on CKD: 74-year-old lady with depression atrophic left kidney CKD stage III baseline creatinine 1.8 mg/dL hypertension hyperlipidemia. Patient is here now with weakness and confusion and falls. 1. Acute kidney injury imaging reveals normal right kidney mild perinephric stranding no obstruction or left kidney severe atrophy. This is on the noncontrast CT scan. - Urinalysis is red slightly cloudy will repeat. She had 0-4 red cells 5-10 white cells 3-4 squamous epithelial cells - Patient also has anemia. Hemoglobin dropped from 15 at baseline to now 9.7. Her platelets decreased mildly. her hgb is stable, -normal haptoglbin -she is s/p HD x 2. remains anuric -potassium 3.3, bicrb 26, bun 49 , phos 5.9 will dialyze today 3 hs and then monitor for renal recovery 2. Increased anion gap metabolic acidosis has improved 3. anemia- hgb stable. haptoglobin 162, ferritin 185, % sat 10 -start iv iron epo x 1 4. Patient has an elevated PTH and phosphorus this is more concerning for subacute versus chronic kidney disease. 5. mild inc LFTs -stable Patient was seen and examined using audiovisual equipment with the aid of a nurse. The patient's consented to telehealth and to dialysis if needed. Case discussed in detail with the patient Plan: Dialysis today check liver function tests, PDMP PDMP Reviewed: Not Reviewed Attestations Medical Necessity Statement*: aniyah, MS improving Time Spent in Patient Care: 16 - 35 minutes (>than 50% of time spent in counselling and/or direct pt care on unit). Coding Level of Care Code Acute Code for Chg Fwd Diagnoses Acute kidney injury superimposed on CKD N17.9; N18.9
--- NOTE | 2025-08-11 12:00 | P.PN_ITS ---
Subjective 2 Subjective: No acute events overnight. Patient awake, sitting in chair. Spouse at bedside Vitals/I&O/Wt Last Vital Signs Temp 96.6 F L 08/11/25 11:26 Pulse 101 H 08/11/25 11:26 Resp 17 08/11/25 11:26 BP 137/82 08/11/25 11:26 Pulse Ox 92 08/11/25 08:30 O2 Del Method Nasal Cannula 08/11/25 08:30 O2 Flow Rate 5 08/11/25 07:38 08/10/25 08/11/25 08/11/25 22:59 06:59 14:59 Intake Total 590 / 590 240 / 830 310 / 310 Balance 590 / 590 240 / 830 310 / 310 Weight last 48 hrs Weight 68.5 kg Weight 65.5 kg Weight 66 kg Physical Exam 2 Narrative: Chronically ill appearing, alert, not oriented HENMT: COMMON NORMALS: normocephalic and atraumatic HEAD & SCALP: n ormocephalic and atraumatic Neck/C-Spine: GENERAL: Yes trachea midline and No JVD Resp: EFFORT & INSPECTION: No tachypneic and No respiratory distress OTHER: diminished breath sounds bibasilar Cardio: COMMON NORMALS: regular rate and regular rhythm JUGULAR VENOUS DISTENTION: JVD present RATE: regular rate RHYTHM: regular rhythm GI: OTHER: soft, non tender, no masses Extremity: NARRATIVE EXTREMITY EXAM: no clubbing, cyanosis or edema Neuro: OTHER: no focal deficits, moving all extremities Urinary Catheter Management: Pugh: Cath Placed During This Visit: yes Reason for Continuing Indwelling Catheter: Accurate Measurement of Urinary Output in Critically Ill Patients Urinary Catheter Date of Insertion: 08/08/25 Urinary Catheter Time of Insertion: 16:57 Data 08/11/25 03:24 08/11/25 03:24 A&P Assessment and plan 1. Acute kidney injury superimposed on CKD: Does seem to have baseline CKD. Baseline creatinine around 1.8. Patient started on HD per nephrology. Anuric Repeat HD today. Spouse considering if he wants to continue outpatient dialysis 2. Atrial fibrillation with RVR: Not a known diagnosis. Likely in the setting of sepsis. Was placed on cardizem drip. On home metoprolol- resume Echo obtained and noted- EF 60 percent, moderate pulmonary hypertension, severe tricuspid regurg 3. Transaminitis: Likely in the setting of sepsis Continue to monitor LFT US abdomen unremarkable 4. Sepsis: SIRS: Tachycardic, Leukocytosis Source: Pneumonia End organ damage: Acute infectious encephalopathy, acute renal failure, A-fib with RVR Lactic acid elevated. Patient did not receive full 30 mL/kg BW given concerns for renal failure. Fluid as above Resolved 5. Dementia: Patient with h/o dementia. Has been at home with spouse prior to current admission Supportive care 6. HTN (hypertension): Stable, on home meds PDMP PDMP Reviewed: Not Reviewed Attestations 2 Medical Necessity Statement*: Requires further hospitalization for management of acute renal failure with anuria requiring hemodialysis, A-fib with RVR Coding Level of Care Code 88949 Diagnoses Acute kidney injury superimposed on CKD N17.9; N18.9 Atrial fibrillation with RVR I48.91 Transaminitis R74.01 Sepsis A41.9 Sepsis acute organ dysfunction status: with acute organ dysfunction Sepsis type: sepsis due to unspecified organism Severe sepsis shock status: without septic shock Dementia F03.90 HTN (hypertension) I10
[2025-08-11] MEDS: cefTRIAXone 1,000 mg SDV 1000 MG IVP (14:18)
--- NOTE | 2025-08-11 14:33 | PC.HD ---
With 30 minutes remaining of hemodialysis, HD circuit clotted off. Blood returned to patient and new lines strung. Treatment continued, with net fluid removal of 1500 mL, which was our goal.
--- NOTE | 2025-08-11 14:56 | PC.NURSE ---
Cardizem delayed due to dialysis. I spoke with Pascale the dialysis nurse and she requested that Cardizem be given after dialysis to support blood pressure.
[2025-08-11] MEDS: pantoprazole 40 mg SDV IVP (15:50)
[2025-08-11] MEDS: dilTIAZem 5 mg/mL SDV 5 mL 15 MG IVP (20:07)
[2025-08-11] MEDS: bumetanide 0.25 mg/mL SDV 10 mL 2 MG IVP (20:20)
[2025-08-12] VITALS (55 sets, daily range): BP systolic 88–159; BP diastolic 66–104; PULSE 69–113; RESP 12–25; TEMP 36.3–36.6; O2SAT 87–96; BMI 27.1
[2025-08-12] MEDS: HYDROcodone-acetaminophen 10-325 mg Tablet 1 TAB PO (02:16)
[2025-08-12 04:23] LABS: Hematocrit 30.2 % (36-47); Hemoglobin 9.50 g/dL (11.27-16.99); Mean Corpuscular HGB Conc 31.5 g/dL (30-55); Mean Corpuscular Hemoglobin 28.8 pg (27-33); Mean Corpuscular Volume 91.5 fl (85-98); Nucleated Red Blood Cells % 0.7 %; Platelet Count 123 10^3/cmm (157-399); Red Blood Count 3.30 10^6/uL (3.85-5.65); White Blood Count 10.85 10^3/uL (3.29-11.43)
[2025-08-12 04:33] LABS: Alanine Aminotransferase 76 U/L (0-33); Albumin Level 3.0 g/dL (3.5-5.2); Alkaline Phosphatase 157 U/L (35-105); Anion Gap 15.8 (5-19); Aspartate Amino Transferase 46 U/L (0-32); Blood Urea Nitrogen 25 mg/dL (8-23); Calcium 8.6 mg/dL (8.5-10.5); Carbon Dioxide 27 mmol/L (22-29); Chloride 99 mmol/L (98-107); Globulin 2.4 g/dL (1.3-4.6); Glucose 102 mg/dL (65-115); Magnesium 2.0 mg/dL (1.7-2.3); Osmolality Calculated 289 mOsm/kg (285-295); Potassium 4.8 mmol/L (3.5-5.1); Sodium 137 mmol/L (136-145); Total Protein 5.4 g/dL (6.6-8.7)
[2025-08-12] MEDS: venlafaxine ER (24HR) 75 mg Capsule PO (05:24)
--- NOTE | 2025-08-12 05:35 | PC.NURSE ---
Heparin: Platelets went from 198 to 123, Dr. Stewart gave telephone orders to hold SUBCUT heparin.
--- NOTE | 2025-08-12 10:08 | PM.PN ---
Subjective Subjective: Patient seen and examined awake and alert eating feeling well has no nausea vomiting or shortness of breath no chest pain. No headaches. Medications: Reviewed: Yes Medication Review Details: Current Medications Acetaminophen (Acetaminophen 325 Mg Tablet) 650 mg PO Q6H PRN PRN Reason: Mild/Mod Pain Or Temp >/= 101 Hydrocodone Bitart/Acetaminophen (Hydrocodone-Acetaminophen 10-325 Mg Tablet) 1 tab PO Q8H PRN PRN Reason: pain (scale score 7-10) Last Admin: 08/12/25 02:16 Dose: 1 tab Albuterol/Ipratropium (Ipratropium-Albuterol 3 Ml Neb) 3 ml INHALATION Q6H.RESP [facility] Last Admin: 08/12/25 09:43 Dose: Not Given Aripiprazole (Aripiprazole 2 Mg Tablet) 2 mg PO DAILY [facility] Last Admin: 08/12/25 05:22 Dose: 2 mg Budesonide (Budesonide 0.5 Mg/2 Ml Neb) 0.5 mg INHALATION BID.RESPIRATORY [facility] Last Admin: 08/12/25 09:43 Dose: Not Given Calcitriol (Calcitriol 0.25 Mcg Capsule) 0.25 mcg PO DAILY [facility] Last Admin: 08/12/25 05:20 Dose: 0.25 mcg Ceftriaxone Sodium (Ceftriaxone 1,000 Mg Sdv) 1,000 mg IVP Q24H [facility]; Protocol Stop: 08/14/25 14:59 Last Admin: 08/11/25 14:18 Dose: 1,000 mg Diltiazem HCl (Diltiazem 30 Mg Tablet) 60 mg PO QID [facility] Last Admin: 08/12/25 06:20 Dose: 60 mg Docusate Sodium (Docusate Sodium 100 Mg Capsule) 100 mg PO BID [facility] Last Admin: 08/12/25 05:23 Dose: 100 mg Gabapentin (Gabapentin 100 Mg Capsule) 200 mg PO DAILY [facility] Last Admin: 08/12/25 05:25 Dose: 200 mg Heparin Sodium (Porcine) (Heparin 5,000 Unit/Ml Inj 1 Ml) 5,000 unit SUBCUT Q12H [facility] Last Admin: 08/12/25 05:24 Dose: Not Given Hydralazine HCl (Hydralazine 20 Mg/Ml Inj 1 Ml) 10 mg IVP Q4H PRN PRN Reason: hypertension Last Admin: 08/09/25 20:41 Dose: 10 mg Ferric Sodium Gluconate 125 mg (/ Sodium Chloride) 110 mls @ 110 mls/hr IV Q24H [facility] Stop: 08/17/25 08:29 Last Infusion: 08/11/25 08:42 Dose: Infused Lactulose (Lactulose Oral Liq 20 Gm/30 Ml Udc) 10 gm PO DAILY PRN; Protocol PRN Reason: Constipation (see protocol) Magnesium Hydroxide (Magnesium Hydroxide 30 Ml Udc) 30 ml PO DAILY PRN; Protocol PRN Reason: Constipation (see protocol) Metoprolol Tartrate (Metoprolol Tartrate 50 Mg Tablet) 50 mg PO BID [facility] Last Admin: 08/12/25 05:20 Dose: 50 mg Morphine Sulfate (Morphine 4 Mg/Ml Sdv 1 Ml) 2 mg IVP Q4H PRN PRN Reason: SEVERE PAIN Last Admin: 08/11/25 16:09 Dose: 2 mg Ondansetron HCl (Ondansetron 2 Mg/Ml Sdv 2 Ml) 4 mg IVP Q6H PRN PRN Reason: vomiting, or N/V if npo Pantoprazole Sodium (Pantoprazole 40 Mg Sdv) 40 mg IVP Q24H [facility] Last Admin: 08/11/25 15:50 Dose: 40 mg Venlafaxine HCl (Venlafaxine Er (24hr) 75 Mg Capsule) 75 mg PO DAILY [facility] Last Admin: 08/12/25 05:24 Dose: 75 mg Vitals/I&O/Wt Last Vital Signs Temp 97.7 F 08/12/25 07:55 Pulse 84 08/12/25 08:30 Resp 21 H 08/12/25 08:30 BP 94/74 08/12/25 08:30 Pulse Ox 93 08/12/25 08:30 O2 Del Method Nasal Cannula 08/12/25 08:30 O2 Flow Rate 4 08/12/25 08:30 08/11/25 08/12/25 08/12/25 22:59 06:59 14:59 Intake Total 100 / 1110 480 / 1590 Output Total 0 / 2200 Balance 100 / -1090 480 / -610 Weight last 48 hrs Weight 69.5 kg Weight 69 kg Weight 68.5 kg Physical Exam Narrative: Vital signs noted. Patient comfortable in bed no apparent distress. using nasal cannula oxygen. HEENT normocephalic atraumatic. Neck is supple lungs are clear heart is regular and tachycardic. Abdomen is soft nontender nondistended positive bowel sounds extremities no edema. Dialysis access right subclavian. Neurologically more awake alert oriented following commands interactive Urinary Catheter Management: Puhg: Cath Placed During This Visit: yes Reason for Continuing Indwelling Catheter: Accurate Measurement of Urinary Output in Critically Ill Patients Urinary Catheter Date of Insertion: 08/08/25 Urinary Catheter Time of Insertion: 16:57 Data 08/12/25 03:57 08/12/25 03:57 A&P Assessment and plan 1. Acute kidney injury superimposed on CKD: 74-year-old lady with depression atrophic left kidney CKD stage III baseline creatinine 1.8 mg/dL hypertension hyperlipidemia. Patient is here now with weakness and confusion and falls. 1. Acute kidney injury imaging reveals normal right kidney mild perinephric stranding no obstruction or left kidney severe atrophy. This is on the noncontrast CT scan. - Urinalysis is red slightly cloudy will repeat. She had 0-4 red cells 5-10 white cells 3-4 squamous epithelial cells - Patient also has anemia. Hemoglobin dropped from 15 at baseline to now 9.5. Her hemoglobin is relatively stable, platelets continue to decrease. can evaluate for hemolysis. On August 09 haptoglobin was 162 and patient's bilirubin remains 0.9 transaminases are improving this is unlikely to be hemolysis. Most likely diagnosis is ATN. Reviewed her medications she was not on any medications that clearly cause interstitial nephritis except for omeprazole would hold PPI. She was also on thiazide which is being held. The major question is if renal function does not improve whether we would want to consider a biopsy. -Patient is status post dialysis times 3. We will hold hemodialysis for now and monitor for renal recovery 2. Increased anion gap metabolic acidosis has improved 3. anemia- hgb stable. haptoglobin 162, ferritin 185, % sat 10 -start iv iron epo x 1 Normal free lambda kappa ratio. Awaiting serum immunofixation protein electrophoresis shows hypogammaglobulinemia 4. Patient has an elevated PTH and phosphorus this is more concerning for subacute versus chronic kidney disease. 5. mild inc LFTs improving Patient was seen and examined using audiovisual equipment with the aid of a nurse. The patient's consented to telehealth and to dialysis if needed. Case discussed in detail with the patient and her Plan: Limit medications, monitor for renal recovery. See above., PDMP PDMP Reviewed: Not Reviewed Attestations Medical Necessity Statement*: Acute kidney injury Time Spent in Patient Care: Greater than 35 minutes (>than 50% of time spent in counselling and/or direct pt care on unit). Coding Level of Care Code Acute Code for Chg Fwd Diagnoses Acute kidney injury superimposed on CKD N17.9; N18.9
--- NOTE | 2025-08-12 14:08 | P.PN_ITS ---
Subjective 2 Subjective: No acute events overnight. Patient more awake and alert. Spouse at bedside Vitals/I&O/Wt Last Vital Signs Temp 97.7 F 08/12/25 07:55 Pulse 95 08/12/25 13:22 Resp 18 08/12/25 13:22 BP 132/85 08/12/25 12:00 Pulse Ox 91 08/12/25 13:22 O2 Del Method Nasal Cannula 08/12/25 13:22 O2 Flow Rate 4 08/12/25 13:22 08/11/25 08/12/25 08/12/25 22:59 06:59 14:59 Intake Total 100 / 1110 480 / 1590 400 / 400 Output Total 0 / 2200 Balance 100 / -1090 480 / -610 400 / 400 Weight last 48 hrs Weight 69.5 kg Weight 69 kg Weight 68.5 kg Physical Exam 2 Const: GENERAL APPEARANCE: comfortable and well developed; not in distress HENMT: COMMON NORMALS: normocephalic and atraumatic HEAD & SCALP: n ormocephalic and atraumatic Neck/C-Spine: GENERAL: Yes trachea midline and No lymphadenopathy Resp: OTHER: diminished BS both bases with few crackles Cardio: COMMON NORMALS: regular rate and regular rhythm RATE: regular rate RHYTHM: regular rhythm GI: COMMON NORMALS: Soft to palpation and No hepatosplenomegaly present P ALPATION: Yes Soft to palpation, No Tenderness to palpation present (GI) and Yes No hepatosplenomegaly present Extremity: GENERAL: No calf tenderness, No clubbing and No cyanosis Neuro: COMMON NORMALS: no focal motor deficits OTHER: awake and alert, oriented to self Urinary Catheter Management: Pugh: Cath Placed During This Visit: yes Reason for Continuing Indwelling Catheter: Accurate Measurement of Urinary Output in Critically Ill Patients Urinary Catheter Date of Insertion: 08/08/25 Urinary Catheter Time of Insertion: 16:57 Data 08/12/25 03:57 08/12/25 03:57 US: Radiologist's impression: Procedure(s): US liver IMPRESSION: No acute findings within limitations of the study. Procedure(s): XR chest 1V portable IMPRESSION: Improving aeration at the lung bases. Procedure(s): CT head wo con* IMPRESSION: No acute intracranial hemorrhage or mass effect. Procedure(s): CT kidney stone IMPRESSION: 1. Small bilateral pleural effusions. 2. Cardiomegaly. 3. Perinephric stranding around each kidney. No renal obstruction. Correlate for possible urinary tract infection. 4. Severe atrophy LEFT kidney. 5. Small amount of free fluid in the pelvis. 6. No evidence for colitis. No GI tract obstruction A&P Assessment and plan 1. Acute kidney injury superimposed on CKD: Does seem to have baseline CKD. Baseline creatinine around 1.8. Patient started on HD per nephrology for acute renal failure with anuria. Recd HD X 3 Nephrology is following. Spouse considering if he wants to continue outpatient dialysis. 2. Atrial fibrillation with RVR: Not a known diagnosis. Likely in the setting of sepsis. Was placed on cardizem drip. On home metoprolol- resumed. Cardizem PO- continue Echo obtained and noted- EF 60 percent, moderate pulmonary hypertension, severe tricuspid regurg 3. Transaminitis: Likely in the setting of sepsis Continue to monitor LFT- improving US abdomen unremarkable 4. Sepsis: SIRS: Tachycardic, Leukocytosis Source: Pneumonia On ceftriaxone with stop date of 08/14 Resolved 5. Dementia: Patient with h/o dementia. Has been at home with spouse prior to current admission Supportive care 6. HTN (hypertension): Stable , on home meds Plan: Plan- patient's spouse is considering hospice. He does not think she wants ongoing dialysis. However, he has been unable to make a decision and she remains a Full code at this time. Case management is following and assisting. Discussed with care team members. PDMP PDMP Reviewed: Not Reviewed Attestations 2 Medical Necessity Statement*: Requires further hospitalization for management of acute renal failure with anuria requiring hemodialysis, A-fib with RVR Coding Level of Care Code 79212 Diagnoses Acute kidney injury superimposed on CKD N17.9; N18.9 Atrial fibrillation with RVR I48.91 Transaminitis R74.01 Sepsis A41.9 Dementia F03.90 HTN (hypertension) I10
[2025-08-12] MEDS: cefTRIAXone 1,000 mg SDV 1000 MG IVP (14:46)
[2025-08-12] MEDS: pantoprazole 40 mg SDV IVP (17:22)
[2025-08-12] MEDS: heparin 5,000 unit/mL INJ 1 mL 5000 UNIT SUBCUT (17:23)
[2025-08-13] VITALS (58 sets, daily range): BP systolic 122–181; BP diastolic 77–132; PULSE 79–150; RESP 11–53; TEMP 36.2–36.6; O2SAT 86–95
[2025-08-13 03:39] LABS: Hematocrit 32.4 % (36-47); Hemoglobin 9.80 g/dL (11.27-16.99); Mean Corpuscular HGB Conc 30.2 g/dL (30-55); Mean Corpuscular Hemoglobin 28.6 pg (27-33); Mean Corpuscular Volume 94.5 fl (85-98); Nucleated Red Blood Cells % 0.4 %; Platelet Count 149 10^3/cmm (157-399); Red Blood Count 3.43 10^6/uL (3.85-5.65); White Blood Count 12.01 10^3/uL (3.29-11.43)
[2025-08-13 04:18] LABS: Alanine Aminotransferase 58 U/L (0-33); Albumin Level 3.1 g/dL (3.5-5.2); Alkaline Phosphatase 156 U/L (35-105); Anion Gap 18.7 (5-19); Aspartate Amino Transferase 28 U/L (0-32); Blood Urea Nitrogen 40 mg/dL (8-23); Calcium 9.1 mg/dL (8.5-10.5); Carbon Dioxide 23 mmol/L (22-29); Chloride 98 mmol/L (98-107); Globulin 2.7 g/dL (1.3-4.6); Glucose 96 mg/dL (65-115); Magnesium 2.1 mg/dL (1.7-2.3); Osmolality Calculated 288 mOsm/kg (285-295); Potassium 5.7 mmol/L (3.5-5.1); Sodium 134 mmol/L (136-145); Total Protein 5.8 g/dL (6.6-8.7)
[2025-08-13] MEDS: venlafaxine ER (24HR) 75 mg Capsule PO (04:57)
[2025-08-13] MEDS: heparin 5,000 unit/mL INJ 1 mL 5000 UNIT SUBCUT ×2 (04:58→16:44)
--- NOTE | 2025-08-13 10:09 | P.PN_ITS ---
Subjective 2 Subjective: feels better. pleasantly confused. Denies nausea vomiting diarrhea headaches or chest pain has some shortness of breath requiring oxygen not urinating. Medications: Reviewed: Yes Medication Review Details: Current Medications Acetaminophen (Acetaminophen 325 Mg Tablet) 650 mg PO Q6H PRN PRN Reason: Mild/Mod Pain Or Temp >/= 101 Hydrocodone Bitart/Acetaminophen (Hydrocodone-Acetaminophen 10-325 Mg Tablet) 1 tab PO Q8H PRN PRN Reason: pain (scale score 7-10) Last Admin: 08/12/25 02:16 Dose: 1 tab Albuterol/Ipratropium (Ipratropium-Albuterol 3 Ml Neb) 3 ml INHALATION Q6H.RESP [facility] Last Admin: 08/13/25 08:26 Dose: 3 ml Aripiprazole (Aripiprazole 2 Mg Tablet) 2 mg PO DAILY [facility] Last Admin: 08/13/25 04:57 Dose: 2 mg Budesonide (Budesonide 0.5 Mg/2 Ml Neb) 0.5 mg INHALATION BID.RESPIRATORY [facility] Last Admin: 08/13/25 08:26 Dose: 0.5 mg Calcitriol (Calcitriol 0.25 Mcg Capsule) 0.25 mcg PO DAILY [facility] Last Admin: 08/13/25 04:57 Dose: 0.25 mcg Ceftriaxone Sodium (Ceftriaxone 1,000 Mg Sdv) 1,000 mg IVP Q24H [facility]; Protocol Stop: 08/14/25 14:59 Last Admin: 08/12/25 14:46 Dose: 1,000 mg Diltiazem HCl (Diltiazem 30 Mg Tablet) 60 mg PO QID [facility] Last Admin: 08/13/25 04:58 Dose: 60 mg Docusate Sodium (Docusate Sodium 100 Mg Capsule) 100 mg PO BID [facility] Last Admin: 08/13/25 04:57 Dose: 100 mg Gabapentin (Gabapentin 100 Mg Capsule) 100 mg PO DAILY [facility] Last Admin: 08/13/25 04:58 Dose: 100 mg Heparin Sodium (Porcine) (Heparin 5,000 Unit/Ml Inj 1 Ml) 5,000 unit SUBCUT Q12H [facility] Last Admin: 08/13/25 04:58 Dose: 5,000 unit Hydralazine HCl (Hydralazine 20 Mg/Ml Inj 1 Ml) 10 mg IVP Q4H PRN PRN Reason: hypertension Last Admin: 08/09/25 20:41 Dose: 10 mg Ferric Sodium Gluconate 125 mg (/ Sodium Chloride) 110 mls @ 110 mls/hr IV Q24H [facility] Stop: 08/17/25 08:29 Last Admin: 08/12/25 10:43 Dose: Not Given Lactulose (Lactulose Oral Liq 20 Gm/30 Ml Udc) 10 gm PO DAILY PRN; Protocol PRN Reason: Constipation (see protocol) Magnesium Hydroxide (Magnesium Hydroxide 30 Ml Udc) 30 ml PO DAILY PRN; Protocol PRN Reason: Constipation (see protocol) Metoprolol Tartrate (Metoprolol Tartrate 50 Mg Tablet) 50 mg PO BID [facility] Last Admin: 08/13/25 04:57 Dose: 50 mg Morphine Sulfate (Morphine 4 Mg/Ml Sdv 1 Ml) 2 mg IVP Q4H PRN PRN Reason: SEVERE PAIN Last Admin: 08/11/25 16:09 Dose: 2 mg Ondansetron HCl (Ondansetron 2 Mg/Ml Sdv 2 Ml) 4 mg IVP Q6H PRN PRN Reason: vomiting, or N/V if npo Pantoprazole Sodium (Pantoprazole 40 Mg Sdv) 40 mg IVP Q24H [facility] Last Admin: 08/12/25 17:22 Dose: 40 mg Venlafaxine HCl (Venlafaxine Er (24hr) 75 Mg Capsule) 75 mg PO DAILY [facility] Last Admin: 08/13/25 04:57 Dose: 75 mg Vitals/I&O/Wt Last Vital Signs Temp 97.9 F 08/13/25 04:07 Pulse 96 08/13/25 08:35 Resp 24 H 08/13/25 08:30 BP 138/89 08/13/25 08:30 Pulse Ox 92 08/13/25 08:30 O2 Del Method Nasal Cannula 08/13/25 08:18 O2 Flow Rate 6 08/13/25 08:18 08/12/25 08/13/25 08/13/25 22:59 06:59 14:59 Intake Total 320 / 720 200 / 200 Output Total Balance 310 / 710 -5 / 705 200 / 200 Weight last 48 hrs Weight 71.5 kg Weight 69.5 kg Weight 69 kg Physical Exam 2 Narrative: Vital signs noted. Patient comfortable in bed no apparent distress. using nasal cannula oxygen. HEENT normocephalic atraumatic. Neck is supple lungs have crackles heart is irregular irregular, positive S1-S2. Abdomen is soft nontender nondistended positive bowel sounds extremities trace edema. Dialysis access right subclavian. Neurologically more awake alert oriented times 1. She does not know why she is here or the date.. She is following commands, interactive Urinary Catheter Management: Pugh: Cath Placed During This Visit: yes Reason for Continuing Indwelling Catheter: Accurate Measurement of Urinary Output in Critically Ill Patients Urinary Catheter Date of Insertion: 08/08/25 Urinary Catheter Time of Insertion: 16:57 Data 08/13/25 03:17 08/13/25 03:17 A&P Assessment and plan 1. Acute kidney injury superimposed on CKD: 74-year-old lady with depression atrophic left kidney CKD stage III baseline creatinine 1.8 mg/dL hypertension hyperlipidemia. Patient is here now with weakness and confusion and falls. 1. Acute kidney injury imaging reveals normal right kidney mild perinephric stranding no obstruction or left kidney severe atrophy. This is on the noncontrast CT scan. - Urinalysis is red slightly cloudy will repeat. She had 0-4 red cells 5-10 white cells 3-4 squamous epithelial cells - Patient also has anemia. Hemoglobin dropped from 15 at baseline to now 9.5. Her hemoglobin is relatively stable, platelets continue to decrease. can evaluate for hemolysis. On August 09 haptoglobin was 162 and patient's bilirubin remains 0.9 transaminases are improving this is unlikely to be hemolysis. Most likely diagnosis is ATN. Reviewed her medications she was not on any medications that clearly cause interstitial nephritis except for omeprazole would hold PPI. She was also on thiazide which is being held. The major question is if renal function does not improve whether we would want to consider a biopsy. -Patient is status post dialysis times 3. She is not improving. Will repeat dialysis today. Would recommend placing a permacath. The major question is a family would want to continue dialysis. Or whether they would want to consider a transfer for renal biopsy. Given the fact that the patient has atrophic left kidney right kidney may be dangerous if she bleeds patient would likely be dialysis dependent and I am uncertain how much renal recovery she would possibly have. Monitor sodium potassium with dialysis. Can use a phosphorus binder. 2. Increased anion gap metabolic acidosis has improved 3. anemia- hgb stable at 9.8 g/dL. Platelets have improved. Haptoglobin 162, ferritin 185, % sat 10 -start iv iron epo x 1 Normal free lambda kappa ratio. Serum protein electrophoresis shows hypogammaglobulinemia. Awaiting serum immunofixation 4. Patient has an elevated PTH and phosphorus this is more concerning for subacute versus chronic kidney disease. 5. mild inc LFTs improving. Patient was seen and examined using audiovisual equipment with the aid of a nurse. The patient's consented to telehealth and to dialysis if needed. Case discussed in detail with the patient and her Plan: See above. Plan would be for permacath can discuss outpatient dialysis with the family and monitoring for renal recovery there for consideration of transferring for biopsy though they question would be if we could find something reversible. PDMP PDMP Reviewed: Not Reviewed Attestations 2 Medical Necessity Statement*: Acute kidney injury on CKD stage IIIb. Time Spent in Patient Care: Greater than 35 minutes (>than 50% of time spent in counselling and/or direct pt care on unit) . Coding Level of Care Code Acute Code for Chg Fwd Diagnoses Acute kidney injury superimposed on CKD N17.9; N18.9
--- NOTE | 2025-08-13 10:21 | PC.NURSE ---
Ferric Gluconate to be given on days of dialysis med due at 0730 , Nephrology rounded approximately 0930 plan to do dialysis today
[2025-08-13] MEDS: ferric gluconate 125 MG in sodium chloride 0.9% (100 ml) 100 ML 110 MG IV (10:23)
--- NOTE | 2025-08-13 12:08 | PC.SOCIAL ---
IMM Updated Updated pt & her on IMM. No questions voiced. Provided pt a copy. Initialed, dated, & timed copy in chart.
[2025-08-13] MEDS: cefTRIAXone 1,000 mg SDV 1000 MG IVP (14:52)
--- NOTE | 2025-08-13 15:03 | PC.NURSE ---
Dr. Lam informed this nurse plan is to place permanent dialysis line tomorrow NPO after midnight, to change diet order
--- NOTE | 2025-08-13 16:00 | PC.NURSE ---
BP 170s to 180 systolic concern for decreasing bp with prn IV hydralizine while dialysis running Dr. Lam ordered po hydralizine see MAR
[2025-08-13] MEDS: pantoprazole 40 mg SDV IVP (16:13)
--- NOTE | 2025-08-13 16:23 | PC.NURSE ---
PLT low message sent to clarify ordered sq heparin
--- NOTE | 2025-08-13 16:40 | PC.NURSE ---
Dr. Lam approved sq heparin administration, this nurse notified md of HR 130s 140s MD to evaluate chart
--- NOTE | 2025-08-13 17:06 | PC.OT ---
OT tx attempted at this time. Pt awake, watching tv and receiving dialysis. OT tx held at this time as dialysis nurse reports she has been struggling to keep pt from moving too much and disturbing dialysis tubing. OT tx to be attempted again tomorrow.
--- NOTE | 2025-08-13 17:36 | PM.CONSULT ---
Providers/Reason For Consult Consulting Physician/Specialty*: Dr. Wise general surgery Reason for Consult*: Tunneled dialysis catheter insertion Attending Physician: Geovanny Gonzales MD Primary Care Provider: Marizol Rivera MD History of Present Illness History of Present Illness Karina Estes is a 74 year old female whom surgery was consulted for tunneled dialysis catheter. Nephrology is recommending proceeding with tunneled dialysis catheter. Patient has gone multiple dialysis sessions using a temporary dialysis catheter placed by Dr. Thakkar. Patient has dementia and makes decisions for her. Medications/Allergies Home Medications ?Medication ?Instructions ?Recorded ?Confirmed ?Last Taken ?Type atorvastatin 10 mg tablet 10 mg PO QDAY #90 tabs 12/18/24 08/08/25 Unknown Rx aripiprazole 2 mg tablet 2 mg PO DAILY #90 tabs 01/08/25 08/08/25 Unknown Rx vitamin D3 125 mcg (5,000 1 cap PO DAILY #90 caps 02/15/25 08/08/25 Unknown Rx unit)-vitamin K2 100 mcg capsule amlodipine 5 mg tablet 5 mg PO DAILY #90 tabs 02/26/25 08/08/25 Unknown Rx Held on 06/12/25. Instructions: Guidelines gabapentin 600 mg tablet 600 mg PO TID #270 tabs 03/05/25 08/08/25 Unknown Rx hydrochlorothiazide 12.5 mg tablet 12.5 mg PO DAILY #90 tabs 03/05/25 08/08/25 Unknown Rx venlafaxine 75 mg tablet 225 mg (3 x 75 mg) PO DAILY #90 04/23/25 08/08/25 Unknown Rx tabs metoprolol tartrate 50 mg tablet 25 mg (1/2 x 50 mg) PO BID #90 tabs 05/25/25 08/08/25 Unknown Rx hydrocodone 10 mg-acetaminophen 1 tab PO Q6H PRN pain (scale score 07/09/25 08/08/25 Unknown Rx 325 mg tablet 7-10) 30 days #120 tabs cyclobenzaprine 10 mg tablet 10 mg PO BEDTIME PRN muscle spasms 08/08/25 08/08/25 Unknown History omeprazole 40 mg capsule,delayed 40 mg PO DAILY 08/08/25 08/08/25 Unknown History release Allergies Allergy/AdvReac Type Severity Reaction Status Date / Time Sulfa (Sulfonamide Allergy Mild Dizzy Verified 07/16/25 15:14 Antibiotics) Latex, Natural Rubber Allergy ADR/ALGY-Fl Verified 07/16/25 15:14 ushing Current Medications Generic Name Dose Route Start Last Admin Trade Name Freq PRN Reason Stop Dose Admin Hydrocodone Bitart/Acetaminophen 1 tab 08/08/25 16:31 08/12/25 02:16 Hydrocodone-Acetaminophen 10-325 Mg Tablet PO 1 tab Q8H PRN Administration pain (scale score 7-10) Albuterol/Ipratropium 3 ml 08/08/25 20:00 08/13/25 13:06 Ipratropium-Albuterol 3 Ml Neb INHALATION 3 ml Q6H.RESP [facility] Administration Aripiprazole 2 mg 08/09/25 05:00 08/13/25 04:57 Aripiprazole 2 Mg Tablet PO 2 mg DAILY [facility] Administration Budesonide 0.5 mg 08/08/25 20:00 08/13/25 08:26 Budesonide 0.5 Mg/2 Ml Neb INHALATION 0.5 mg BID.RESPIRATORY [facility] Administration Calcitriol 0.25 mcg 08/12/25 05:00 08/13/25 04:57 Calcitriol 0.25 Mcg Capsule PO 0.25 mcg DAILY [facility] Administration Ceftriaxone Sodium 1,000 mg 08/09/25 15:00 08/13/25 14:52 Ceftriaxone 1,000 Mg Sdv IVP 08/14/25 14:59 1,000 mg Q24H [facility] Administration Protocol Diltiazem HCl 60 mg 08/12/25 05:00 08/13/25 16:12 Diltiazem 30 Mg Tablet PO 60 mg QID [facility] Administration Docusate Sodium 100 mg 08/08/25 17:00 08/13/25 16:13 Docusate Sodium 100 Mg Capsule PO 100 mg BID [facility] Administration Gabapentin 100 mg 08/13/25 05:00 08/13/25 04:58 Gabapentin 100 Mg Capsule PO 100 mg DAILY [facility] Administration Heparin Sodium (Porcine) 5,000 unit 08/08/25 16:48 08/13/25 16:44 Heparin 5,000 Unit/Ml Inj 1 Ml SUBCUT 5,000 unit Q12H [facility] Administration Hydralazine HCl 10 mg 08/09/25 08:13 08/09/25 20:41 Hydralazine 20 Mg/Ml Inj 1 Ml IVP 10 mg Q4H PRN Administration hypertension Hydralazine HCl 25 mg 08/13/25 16:00 08/13/25 16:12 Hydralazine 25 Mg Tablet PO 25 mg TID [facility] Administration Ferric Sodium Gluconate 125 mg 110 mls @ 110 mls/hr 08/10/25 07:30 08/13/25 13:35 / Sodium Chloride IV 08/17/25 08:29 Infused Q24H [facility] Infusion Metoprolol Tartrate 50 mg 08/10/25 17:00 08/13/25 16:13 Metoprolol Tartrate 50 Mg Tablet PO 50 mg BID [facility] Administration Morphine Sulfate 2 mg 08/08/25 16:48 08/11/25 16:09 Morphine 4 Mg/Ml Sdv 1 Ml IVP 2 mg Q4H PRN Administration SEVERE PAIN Pantoprazole Sodium 40 mg 08/08/25 16:48 08/13/25 16:13 Pantoprazole 40 Mg Sdv IVP 40 mg Q24H [facility] Administration Venlafaxine HCl 75 mg 08/10/25 05:00 08/13/25 04:57 Venlafaxine Er (24hr) 75 Mg Capsule PO 75 mg DAILY [facility] Administration PFSH Acute PFSH: Medical History (Updated 08/14/25 @ 01:53 by Geovanny Gonzales MD) Vitamin D deficiency DJD (degenerative joint disease), cervical DDD (degenerative disc disease), thoracic Vitamin B12 deficiency CKD stage 3b, GFR 30-44 ml/min Anemia in chronic kidney disease Anxiety Nicotine dependence, cigarettes, uncomplicated Chronic gastritis without bleeding Hypomagnesemia COPD (chronic obstructive pulmonary disease) Hyponatremia Encounter for chronic pain management legacy patient from pain clinic; on hydrocodone for chronic back pain Chronic lower back pain DDD w/ peripheral neuropathy Pain management contract signed Major depression, chronic Hypercholesteremia HTN (hypertension) Surgical History History of rectal surgery 8.16 for rectal prolapse Hx of colonoscopy with polypectomy 7.7.22 tubular adenoma--f/u 5 yrs--Dr. Julian Parikh Hx of cervical spine surgery anterior cervical fusion 2008 Hx of total hysterectomy with removal of both tubes and ovaries Hx of appendectomy Family History Sister Rheumatoid arthritis Grandmother Colon cancer Social History Smoking and tobacco/nicotine status: current every day tobacco/nicotine user cigarettes Packs smoked per day: 1 Quit status (tobacco/nicotine): not considering quitting Second hand smoke exposure: Yes Alcohol intake: never Substance/Drug Use: never Household members: spouse and other Details: granddaughter Housing: House Marital status: Marital status details: no living children--son in MVA; daughter of COVID Number of children: 2 Highest education level completed: High School Graduate Current occupational status: retired 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 Neck: Central line on the right neck in place Chest: Unlabored breathing room air. No lymphadenopathy. Temporary dialysis catheter in place. Heart: Regular rate and rhythm. Abdomen: Soft, nontender, nondistended. No masses or lymphadenopathy. Urinary Catheter Management: Pugh: Cath Placed During This Visit: yes Reason for Continuing Indwelling Catheter: Accurate Measurement of Urinary Output in Critically Ill Patients Urinary Catheter Date of Insertion: 08/08/25 Urinary Catheter Time of Insertion: 16:57 Data 08/14/25 05:52 08/14/25 05:52 Micro: Microbiology 08/08/25 14:07 Blood Culture - Final Blood NO GROWTH AFTER 5 DAYS 08/08/25 14:05 Blood Culture - Final Blood NO GROWTH AFTER 5 DAYS A&P Assessment and plan 1. Acute renal failure: Plan: 74-year-old female whom surgery was consulted for tunneled dialysis catheter. Will plan for tunneled dialysis catheter 08/14/2025. Will consent . PDMP PDMP Reviewed: Not Reviewed Coding Level of Care Code 14290 Diagnoses Acute renal failure N17.9
[2025-08-13] MEDS: metoprolol tartrate 1 mg/1 mL SDV 5 mL 2.5 MG IVP (17:53)
--- NOTE | 2025-08-13 22:10 | PM.PN ---
Subjective Subjective: feels better. no complains, she was seen alert. takes time to comprehend and understand. the was also with her. she denied any nausea or vomiting or any distress. she was able to complete full sentences on 4-5 L NC o2 supplementation. overall doing well and the family is considering to proceed towards HD and rehab placement case manage onboard and explained further options for rehab center placement. Medications: Reviewed: Yes Medication Review Details: Current Medications Acetaminophen (Acetaminophen 325 Mg Tablet) 650 mg PO Q6H PRN PRN Reason: Mild/Mod Pain Or Temp >/= 101 Hydrocodone Bitart/Acetaminophen (Hydrocodone-Acetaminophen 10-325 Mg Tablet) 1 tab PO Q8H PRN PRN Reason: pain (scale score 7-10) Last Admin: 08/12/25 02:16 Dose: 1 tab Albuterol/Ipratropium (Ipratropium-Albuterol 3 Ml Neb) 3 ml INHALATION Q6H.RESP [facility] Last Admin: 08/13/25 08:26 Dose: 3 ml Aripiprazole (Aripiprazole 2 Mg Tablet) 2 mg PO DAILY [facility] Last Admin: 08/13/25 04:57 Dose: 2 mg Budesonide (Budesonide 0.5 Mg/2 Ml Neb) 0.5 mg INHALATION BID.RESPIRATORY [facility] Last Admin: 08/13/25 08:26 Dose: 0.5 mg Calcitriol (Calcitriol 0.25 Mcg Capsule) 0.25 mcg PO DAILY [facility] Last Admin: 08/13/25 04:57 Dose: 0.25 mcg Ceftriaxone Sodium (Ceftriaxone 1,000 Mg Sdv) 1,000 mg IVP Q24H [facility]; Protocol Stop: 08/14/25 14:59 Last Admin: 08/12/25 14:46 Dose: 1,000 mg Diltiazem HCl (Diltiazem 30 Mg Tablet) 60 mg PO QID [facility] Last Admin: 08/13/25 04:58 Dose: 60 mg Docusate Sodium (Docusate Sodium 100 Mg Capsule) 100 mg PO BID [facility] Last Admin: 08/13/25 04:57 Dose: 100 mg Gabapentin (Gabapentin 100 Mg Capsule) 100 mg PO DAILY [facility] Last Admin: 08/13/25 04:58 Dose: 100 mg Heparin Sodium (Porcine) (Heparin 5,000 Unit/Ml Inj 1 Ml) 5,000 unit SUBCUT Q12H [facility] Last Admin: 08/13/25 04:58 Dose: 5,000 unit Hydralazine HCl (Hydralazine 20 Mg/Ml Inj 1 Ml) 10 mg IVP Q4H PRN PRN Reason: hypertension Last Admin: 08/09/25 20:41 Dose: 10 mg Ferric Sodium Gluconate 125 mg (/ Sodium Chloride) 110 mls @ 110 mls/hr IV Q24H [facility] Stop: 08/17/25 08:29 Last Admin: 08/12/25 10:43 Dose: Not Given Lactulose (Lactulose Oral Liq 20 Gm/30 Ml Udc) 10 gm PO DAILY PRN; Protocol PRN Reason: Constipation (see protocol) Magnesium Hydroxide (Magnesium Hydroxide 30 Ml Udc) 30 ml PO DAILY PRN; Protocol PRN Reason: Constipation (see protocol) Metoprolol Tartrate (Metoprolol Tartrate 50 Mg Tablet) 50 mg PO BID [facility] Last Admin: 08/13/25 04:57 Dose: 50 mg Morphine Sulfate (Morphine 4 Mg/Ml Sdv 1 Ml) 2 mg IVP Q4H PRN PRN Reason: SEVERE PAIN Last Admin: 08/11/25 16:09 Dose: 2 mg Ondansetron HCl (Ondansetron 2 Mg/Ml Sdv 2 Ml) 4 mg IVP Q6H PRN PRN Reason: vomiting, or N/V if npo Pantoprazole Sodium (Pantoprazole 40 Mg Sdv) 40 mg IVP Q24H [facility] Last Admin: 08/12/25 17:22 Dose: 40 mg Venlafaxine HCl (Venlafaxine Er (24hr) 75 Mg Capsule) 75 mg PO DAILY [facility] Last Admin: 08/13/25 04:57 Dose: 75 mg Vitals/I&O/Wt Last Vital Signs Temp 97.5 F L 08/13/25 20:30 Pulse 80 08/13/25 21:29 Resp 18 08/13/25 20:30 BP 126/79 08/13/25 20:30 Pulse Ox 93 08/13/25 20:30 O2 Del Method Nasal Cannula 08/13/25 20:30 O2 Flow Rate 5 08/13/25 20:30 08/13/25 08/13/25 08/13/25 06:59 14:59 22:59 Intake Total 310 / 310 700 / 1010 Output Total 2500 / 2500 Balance - 310 / 310 -1800 / -1490 Weight last 48 hrs Weight 67.5 kg Weight 71.5 kg Weight 69.5 kg Physical Exam Narrative: General: Alert and oriented, sitting on the chair comfortably with 4 L NC O2 supplementation, looks old and frail HEENT: Normocephalic, atraumatic, grossly unremarkable exam Cardio: tachycardia, irregular rhythm, normal S1-S2 without any murmurs, rubs Respiratory: normal vascular breathing on auscultation without any wheezes, no stridor but having mild basal crackles GI: Abdomen soft, nontender, nondistended, normoactive bowel sounds present all 4 quadrants, Neuro: intact cranial nerves motor and sensory and cerebellar/coordination function without any focal neurological deficit Behavior: Appropriate and cooperative Extremities: mild trace edema, pt having mild pallor positive Urinary Catheter Management: Pugh: Cath Placed During This Visit: yes Reason for Continuing Indwelling Catheter: Accurate Measurement of Urinary Output in Critically Ill Patients Urinary Catheter Date of Insertion: 08/08/25 Urinary Catheter Time of Insertion: 16:57 Data 08/13/25 03:17 08/13/25 03:17 Micro: Microbiology 08/08/25 14:07 Blood Culture - Final Blood NO GROWTH AFTER 5 DAYS 08/08/25 14:05 Blood Culture - Final Blood NO GROWTH AFTER 5 DAYS A&P Assessment and plan 1. Acute kidney injury superimposed on CKD: seems to have SHABANA on CKD but the current SHABANA is questionable? biopsy could further answer the etiology however after discussing with the nephro onboard, it may carry high risk than benefit in her case. the prefers to initiates HD, surgery onboard, tomorrow NPO and possible perm cath placement rest to follow nephro recommendations, appreciate the input monitor intake and output daily RFTs and electrolytes with correction accordingly daily wt analysis 2. Atrial fibrillation with RVR: Not a known diagnosis. Likely in the setting of sepsis. Was placed on cardizem drip. On home metoprolol- resumed. Cardizem PO- continue Echo obtained and noted- EF 60 percent, moderate pulmonary hypertension, severe tricuspid regurg. pt still having HR around 100s and goes above 130s during HD session alongwith uncontrolled HTN started pt on hydralaizine 25 tid and to monitor hemodynamics Maintain MAP >65mmhg telemetry monitoring in case of increased HR or symptomatic tachycardia, stat EKG and trops as clinically indicated 3. Transaminitis: Likely in the setting of sepsis Continue to monitor LFT- improving US abdomen unremarkable cont to monitor 4. Sepsis: SIRS: Tachycardic, Leukocytosis high likely pneumonia based on her cxr findings at admission with some interstitial markings and SOB? pt currently having adequaet capillary refills and pulses, still mild SOB since she is ESRD and there are signs of symptoms of fluid overload that requires her to have HD cont ceftriaxone with stop date of 08/14 monitor for any fever spikes or hypotension with signs of sepsis, and if present repeat cultures and consider surgery onboard for possible central line removal to avoid any CLABSI MAP maintained above 65mmhg sepsis resolved 5. Dementia: Patient with h/o dementia. 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 Primary hypertension: intermittently uncontrolled started hydralazine 25 tid and to follow BP cont metoprolol 50mg bid for at fib and also contributes to BP control and diltiazem 60 qid for at fib and also contributes to BP control 7. Thrombocytopenia: heparin held vit b12 levels adequate possible progressive renal disease? medications reviewed cont to monitor cbc and platelets and also monitor for any obvious source of bleeding HIT studies for diagnostic purpose Plan: Plan- patient's spouse finalised to go for HD and rehab placement for her VTE: SCDs, pt having throbocytopenia Discussed with care team members. PDMP PDMP Reviewed: Not Reviewed Attestations Medical Necessity Statement*: Patient will stay more than 2 midnights for the management of her end-stage renal disease requiring PermCath insertion and hemodialysis following with the nephrology on board for further plan of care Time Spent in Patient Care: 16 - 35 minutes (>than 50% of time spent in counselling and/or direct pt care on unit). Other Attestations: Patient condition has been discussed at length with the patient/family, I have independently reviewed the chart labs imaging/diagnostics/EKG. the goals of care and code status with the patient/family/NOK/legal cash application representative, and documented accordingly. I have reconciled the medications after confirmation/comorbidities/current clinical condition. The management has been done according to the current clinical condition with respect to patient goals of care and based on recommendations/guidelines. The patient/family has been informed about the current condition and further plan of care. Agreed with the plan of care and understood without any language barrier. Every effort was made to ensure accuracy of production control expediter. Any obvious errors or omissions should be clarified with the author of the document. Coding Level of Care Code 86343 Diagnoses Acute kidney injury superimposed on CKD N17.9; N18.9 Atrial fibrillation with RVR I48.91 Transaminitis R74.01 Sepsis A41.9 Sepsis acute organ dysfunction status: with acute organ dysfunction Sepsis type: sepsis due to unspecified organism Severe sepsis shock status: without septic shock Dementia F03.90 Primary hypertension I10 Hypertension type: primary hypertension Thrombocytopenia D69.6
[2025-08-14] VITALS (52 sets, daily range): BP systolic 94–174; BP diastolic 56–113; PULSE 66–106; RESP 12–25; TEMP 36.2–36.6; O2SAT 89–94; BMI 27.1
[2025-08-14] MEDS: venlafaxine ER (24HR) 75 mg Capsule PO (05:45)
[2025-08-14 06:14] LABS: Hematocrit 31.6 % (36-47); Hemoglobin 9.80 g/dL (11.27-16.99); Mean Corpuscular HGB Conc 31.0 g/dL (30-55); Mean Corpuscular Hemoglobin 28.9 pg (27-33); Mean Corpuscular Volume 93.2 fl (85-98); Nucleated Red Blood Cells % 0.3 %; Platelet Count 156 10^3/cmm (157-399); Red Blood Count 3.39 10^6/uL (3.85-5.65); White Blood Count 12.69 10^3/uL (3.29-11.43)
[2025-08-14 06:41] LABS: Alanine Aminotransferase 43 U/L (0-33); Albumin Level 3.1 g/dL (3.5-5.2); Alkaline Phosphatase 217 U/L (35-105); Anion Gap 16.4 (5-19); Aspartate Amino Transferase 27 U/L (0-32); Blood Urea Nitrogen 27 mg/dL (8-23); Calcium 9.1 mg/dL (8.5-10.5); Carbon Dioxide 27 mmol/L (22-29); Chloride 97 mmol/L (98-107); Globulin 2.6 g/dL (1.3-4.6); Glucose 108 mg/dL (65-115); Magnesium 2.0 mg/dL (1.7-2.3); Osmolality Calculated 288 mOsm/kg (285-295); Potassium 4.4 mmol/L (3.5-5.1); Sodium 136 mmol/L (136-145); Total Protein 5.7 g/dL (6.6-8.7)
[2025-08-14] MEDS: ferric gluconate 125 MG in sodium chloride 0.9% (100 ml) 100 ML 110 MG IV (08:03)
--- NOTE | 2025-08-14 11:28 | P.PN_ITS ---
Subjective 2 Subjective: No acute events overnight at bedside Patient oriented to self only Right IJ central line in place Vitals/I&O/Wt Last Vital Signs Temp 97.8 F 08/14/25 07:30 Pulse 106 H 08/14/25 09:00 Resp 19 H 08/14/25 09:00 BP 153/104 08/14/25 09:00 Pulse Ox 91 08/14/25 09:00 O2 Del Method Nasal Cannula 08/14/25 09:00 O2 Flow Rate 4 08/14/25 09:00 08/13/25 08/14/25 08/14/25 22:59 06:59 14:59 Intake Total 700 / 1010 Output Total 2500 / 2500 50 / 2550 Balance -1800 / -1490 -50 / -1540 Weight last 48 hrs Weight 153 lb 3.54 oz Weight 148 lb 12.992 oz Weight 157 lb 10.088 oz Physical Exam 2 Narrative: Alert and oriented to self only Chest: Unlabored breathing room air. No lymphadenopathy. Heart: Regular rate and rhythm. Abdomen: Soft, nontender, nondistended. No masses or lymphadenopathy. Urinary Catheter Management: Pugh: Cath Placed During This Visit: yes Reason for Continuing Indwelling Catheter: Accurate Measurement of Urinary Output in Critically Ill Patients Urinary Catheter Date of Insertion: 08/08/25 Urinary Catheter Time of Insertion: 16:57 Data 08/14/25 05:52 08/14/25 05:52 Micro: Microbiology 08/08/25 14:07 Blood Culture - Final Blood NO GROWTH AFTER 5 DAYS 08/08/25 14:05 Blood Culture - Final Blood NO GROWTH AFTER 5 DAYS A&P Assessment and plan 1. Acute kidney injury superimposed on CKD: Plan: 74-year-old female whom surgery was consulted for placement of tunneled dialysis catheter. I had an extensive discussion with the patient's and answered all questions. I have discussed non operative/non procedural options and the patient's POA still decides to proceed. Discussed risks and benefits of tunneled dialysis catheter insertion and patient's decides to proceed. Patient understands the risks include bleeding, infection, catheter malfunction, massive bleeding and , pneumothorax, pneumo mediastum, arterial injury, stroke, and the patient's decides to proceed. PDMP PDMP Reviewed: Not Reviewed Attestations 2 Medical Necessity Statement*: N/A Coding Level of Care Code 17640 Diagnoses Acute kidney injury superimposed on CKD N17.9; N18.9
--- NOTE | 2025-08-14 11:30 | ANES.PREANE2 ---
Pre-Anesthetic Assessment Height/Weight: Height 5 ft 3 in Weight 153 lb 3.54 oz Temp Pulse Resp BP Pulse Ox O2 Del Method O2 Flow Rate 97.8 F 106 H 19 H 153/104 91 Nasal Cannula 4 08/14/25 07:30 08/14/25 09:00 08/14/25 09:00 08/14/25 09:00 08/14/25 09:00 08/14/25 09:00 08/14/25 09:00 Preop Diagnosis: CKD Operation Date: 08/14/25 13:35 Proposed Procedures p Insertion Central Venous Access Device Dialysis Catheter Insertion(Not Applicable) - Jayjay Wise MD Was Beta Bridgette taken within 24 hours: Yes Was Clonidine taken within 24 hours: N/A Social No alcohol and No tobacco Exam alert Oriented to self only Airway Submandibular: within normal limits Cervical ROM: within normal limits Mallampati: Class III Anesthetic Plan ASA status: 4 Anesthesia: MAC Other: Patient initially admitted 08/08/2025 for SHABANA on CKD History of dementia No prior issues with anesthesia Upon admission patient's creatinine was 14.8 with a BUN of 93 and potassium of 7.1 History of hypertension on amlodipine, metoprolol and HCTZ GERD on omeprazole Labs reviewed from today, hemoglobin 9.8, NA 136, K+ 4.4, CR 3.7 Currently in A-fib. HR 78. On Cardizem Patient's plan is for permanent dialysis catheter with transfer to retirement Plan for MAC anesthesia with local via surgeon Medications/Allergies Home Medications ?Medication ?Instructions ?Recorded ?Confirmed ?Last Taken ?Type atorvastatin 10 mg tablet 10 mg PO QDAY #90 tabs 12/18/24 08/08/25 Unknown Rx aripiprazole 2 mg tablet 2 mg PO DAILY #90 tabs 01/08/25 08/08/25 Unknown Rx vitamin D3 125 mcg (5,000 1 cap PO DAILY #90 caps 02/15/25 08/08/25 Unknown Rx unit)-vitamin K2 100 mcg capsule amlodipine 5 mg tablet 5 mg PO DAILY #90 tabs 02/26/25 08/08/25 Unknown Rx Held on 06/12/25. Instructions: Guidelines gabapentin 600 mg tablet 600 mg PO TID #270 tabs 03/05/25 08/08/25 Unknown Rx hydrochlorothiazide 12.5 mg tablet 12.5 mg PO DAILY #90 tabs 03/05/25 08/08/25 Unknown Rx venlafaxine 75 mg tablet 225 mg (3 x 75 mg) PO DAILY #90 04/23/25 08/08/25 Unknown Rx tabs metoprolol tartrate 50 mg tablet 25 mg (1/2 x 50 mg) PO BID #90 tabs 05/25/25 08/08/25 Unknown Rx hydrocodone 10 mg-acetaminophen 1 tab PO Q6H PRN pain (scale score 07/09/25 08/08/25 Unknown Rx 325 mg tablet 7-10) 30 days #120 tabs cyclobenzaprine 10 mg tablet 10 mg PO BEDTIME PRN muscle spasms 08/08/25 08/08/25 Unknown History omeprazole 40 mg capsule,delayed 40 mg PO DAILY 08/08/25 08/08/25 Unknown History release Allergies Allergy/AdvReac Type Severity Reaction Status Date / Time Sulfa (Sulfonamide Allergy Mild Dizzy Verified 07/16/25 15:14 Antibiotics) Latex, Natural Rubber Allergy ADR/ALGY-Fl Verified 07/16/25 15:14 ushing Current Medications Generic Name Dose Route Start Last Admin Trade Name Freq PRN Reason Stop Dose Admin Albuterol/Ipratropium 3 ml 08/08/25 20:00 08/14/25 07:51 Ipratropium-Albuterol 3 Ml Neb INHALATION 3 ml Q6H.RESP [facility] Administration Aripiprazole 2 mg 08/09/25 05:00 08/14/25 05:44 Aripiprazole 2 Mg Tablet PO 2 mg DAILY [facility] Administration Budesonide 0.5 mg 08/08/25 20:00 08/14/25 07:51 Budesonide 0.5 Mg/2 Ml Neb INHALATION 0.5 mg BID.RESPIRATORY [facility] Administration Calcitriol 0.25 mcg 08/12/25 05:00 08/14/25 05:43 Calcitriol 0.25 Mcg Capsule PO 0.25 mcg DAILY [facility] Administration Ceftriaxone Sodium 1,000 mg 08/09/25 15:00 08/13/25 14:52 Ceftriaxone 1,000 Mg Sdv IVP 08/14/25 14:59 1,000 mg Q24H [facility] Administration Protocol Diltiazem HCl 60 mg 08/12/25 05:00 08/14/25 06:26 Diltiazem 30 Mg Tablet PO 60 mg QID [facility] Administration Docusate Sodium 100 mg 08/08/25 17:00 08/14/25 05:40 Docusate Sodium 100 Mg Capsule PO 100 mg BID [facility] Administration Gabapentin 100 mg 08/13/25 05:00 08/14/25 05:38 Gabapentin 100 Mg Capsule PO 100 mg DAILY [facility] Administration Hydralazine HCl 10 mg 08/09/25 08:13 08/09/25 20:41 Hydralazine 20 Mg/Ml Inj 1 Ml IVP 10 mg Q4H PRN Administration hypertension Ferric Sodium Gluconate 125 mg 110 mls @ 110 mls/hr 08/10/25 07:30 08/14/25 08:03 / Sodium Chloride IV 08/17/25 08:29 110 mls/hr Q24H [facility] Administration Metoprolol Tartrate 50 mg 08/10/25 17:00 08/14/25 05:34 Metoprolol Tartrate 50 Mg Tablet PO 50 mg BID [facility] Administration Pantoprazole Sodium 40 mg 08/08/25 16:48 08/13/25 16:13 Pantoprazole 40 Mg Sdv IVP 40 mg Q24H [facility] Administration Venlafaxine HCl 75 mg 08/10/25 05:00 08/14/25 05:45 Venlafaxine Er (24hr) 75 Mg Capsule PO 75 mg DAILY [facility] Administration Additional Medication Information Current Medications Acetaminophen (Acetaminophen 325 Mg Tablet) 650 mg PO Q6H PRN PRN Reason: Mild/Mod Pain Or Temp >/= 101 Hydrocodone Bitart/Acetaminophen (Hydrocodone-Acetaminophen 10-325 Mg Tablet) 1 tab PO Q8H PRN PRN Reason: pain (scale score 7-10) Last Admin: 08/12/25 02:16 Dose: 1 tab Albuterol/Ipratropium (Ipratropium-Albuterol 3 Ml Neb) 3 ml INHALATION Q6H.RESP [facility] Last Admin: 08/13/25 08:26 Dose: 3 ml Aripiprazole (Aripiprazole 2 Mg Tablet) 2 mg PO DAILY [facility] Last Admin: 08/13/25 04:57 Dose: 2 mg Budesonide (Budesonide 0.5 Mg/2 Ml Neb) 0.5 mg INHALATION BID.RESPIRATORY [facility] Last Admin: 08/13/25 08:26 Dose: 0.5 mg Calcitriol (Calcitriol 0.25 Mcg Capsule) 0.25 mcg PO DAILY [facility] Last Admin: 08/13/25 04:57 Dose: 0.25 mcg Ceftriaxone Sodium (Ceftriaxone 1,000 Mg Sdv) 1,000 mg IVP Q24H [facility]; Protocol Stop: 08/14/25 14:59 Last Admin: 08/12/25 14:46 Dose: 1,000 mg Diltiazem HCl (Diltiazem 30 Mg Tablet) 60 mg PO QID [facility] Last Admin: 08/13/25 04:58 Dose: 60 mg Docusate Sodium (Docusate Sodium 100 Mg Capsule) 100 mg PO BID [facility] Last Admin: 08/13/25 04:57 Dose: 100 mg Gabapentin (Gabapentin 100 Mg Capsule) 100 mg PO DAILY [facility] Last Admin: 08/13/25 04:58 Dose: 100 mg Heparin Sodium (Porcine) (Heparin 5,000 Unit/Ml Inj 1 Ml) 5,000 unit SUBCUT Q12H [facility] Last Admin: 08/13/25 04:58 Dose: 5,000 unit Hydralazine HCl (Hydralazine 20 Mg/Ml Inj 1 Ml) 10 mg IVP Q4H PRN PRN Reason: hypertension Last Admin: 08/09/25 20:41 Dose: 10 mg Ferric Sodium Gluconate 125 mg (/ Sodium Chloride) 110 mls @ 110 mls/hr IV Q24H [facility] Stop: 08/17/25 08:29 Last Admin: 08/12/25 10:43 Dose: Not Given Lactulose (Lactulose Oral Liq 20 Gm/30 Ml Udc) 10 gm PO DAILY PRN; Protocol PRN Reason: Constipation (see protocol) Magnesium Hydroxide (Magnesium Hydroxide 30 Ml Udc) 30 ml PO DAILY PRN; Protocol PRN Reason: Constipation (see protocol) Metoprolol Tartrate (Metoprolol Tartrate 50 Mg Tablet) 50 mg PO BID [facility] Last Admin: 08/13/25 04:57 Dose: 50 mg Morphine Sulfate (Morphine 4 Mg/Ml Sdv 1 Ml) 2 mg IVP Q4H PRN PRN Reason: SEVERE PAIN Last Admin: 08/11/25 16:09 Dose: 2 mg Ondansetron HCl (Ondansetron 2 Mg/Ml Sdv 2 Ml) 4 mg IVP Q6H PRN PRN Reason: vomiting, or N/V if npo Pantoprazole Sodium (Pantoprazole 40 Mg Sdv) 40 mg IVP Q24H [facility] Last Admin: 08/12/25 17:22 Dose: 40 mg Venlafaxine HCl (Venlafaxine Er (24hr) 75 Mg Capsule) 75 mg PO DAILY [facility] Last Admin: 08/13/25 04:57 Dose: 75 mg PFSH Anesthesia Medical History (Updated 08/14/25 @ 01:53 by Geovanny Gonzales MD) Vitamin D deficiency DJD (degenerative joint disease), cervical DDD (degenerative disc disease), thoracic Vitamin B12 deficiency CKD stage 3b, GFR 30-44 ml/min Anemia in chronic kidney disease Anxiety Nicotine dependence, cigarettes, uncomplicated Chronic gastritis without bleeding Hypomagnesemia COPD (chronic obstructive pulmonary disease) Hyponatremia Encounter for chronic pain management legacy patient from pain clinic; on hydrocodone for chronic back pain Chronic lower back pain DDD w/ peripheral neuropathy Pain management contract signed Major depression, chronic Hypercholesteremia HTN (hypertension) Surgical History History of rectal surgery 8.16 for rectal prolapse Hx of colonoscopy with polypectomy 7.7.22 tubular adenoma--f/u 5 yrs--Dr. Julian Parikh Hx of cervical spine surgery anterior cervical fusion 2008 Hx of total hysterectomy with removal of both tubes and ovaries Hx of appendectomy Family History Sister Rheumatoid arthritis Grandmother Colon cancer Social History Smoking and tobacco/nicotine status: current every day tobacco/nicotine user cigarettes Packs smoked per day: 1 Quit status (tobacco/nicotine): not considering quitting Second hand smoke exposure: Yes Alcohol intake: never Substance/Drug Use: never Household members: spouse and other Details: granddaughter Housing: House Marital status: Marital status details: no living children--son in MVA; daughter of COVID Number of children: 2 Highest education level completed: High School Graduate Current occupational status: retired 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 Data Anesthesia 08/14/25 05:52 08/14/25 05:52 Short CBC 08/13/25 08/14/25 Range/Units 03:17 05:52 WBC 12.01 H 12.69 H (3.29-11.43) 10^3/uL Hgb 9.80 L 9.80 L (11.27-16.99) g/dL Hct 32.4 L 31.6 L (36-47) % MCV 94.5 93.2 (85-98) fl Plt Count 149 L 156 L (157-399) 10^3/cmm Neut % (Auto) 73.1 78.3 % Neut # (Auto) 8.78 H 9.95 H (1.8-7.7) 10^3/uL BMP 08/13/25 08/14/25 03:17 05:52 Sodium 134 L 136 Potassium 5.7 H 4.4 Chloride 98 97 L Carbon Dioxide 23 27 BUN 40 H 27 H Creatinine 5.5 H 3.7 H Glucose 96 108 Calcium 9.1 9.1 Liver Function 08/13/25 08/14/25 Range/Units 03:17 05:52 Total Bilirubin 0.8 0.9 (0.15-1.2) mg/dL AST 28 27 (0-32) U/L ALT 58 H 43 H (0-33) U/L Alkaline Phosphatase 156 H 217 H (35-105) U/L Albumin 3.1 L 3.1 L (3.5-5.2) g/dL Microbiology 08/08/25 14:07 Blood Culture - Final Blood NO GROWTH AFTER 5 DAYS 08/08/25 14:05 Blood Culture - Final Blood NO GROWTH AFTER 5 DAYS Cardiac Studies: Echocardiogram 08/09/25
[2025-08-14] MEDS: BUPivacaine 0.25% INJ 10 mL INJECTION (12:37)
[2025-08-14] MEDS: lidocaine-epi 1% PF 1:200,000 30 mL SDV INJECTION (12:37)
[2025-08-14] MEDS: heparin, porcine 1,000 unit/mL INJ 10 mL 6000 UNIT INJECTION (12:40)
--- NOTE | 2025-08-14 12:59 | P.OP_ITS ---
Operative Report Date of procedure: August 14, 2025 Pre-op diagnosis: Renal failure Post-op diagnosis: same Post-op findings: Tip of catheter at atriocaval junction. Placed a 23 cm tunneled dialysis catheter via a right IJ approach. Able to draw blood and flush easily through both channels. Hep-locked. Removed old right subclavian temporary dialysis catheter. Sent tip for culture. The rest was sent to pathology. Procedure done: Tunneled dialysis catheter insertion Implants: Tunneled dialysis catheter 23 cm Specimens removed/disposition: Right subclavian temporary dialysis catheter removed. Tip sent for culture. Rest of catheter sent to pathology. Pathology: Temporary dialysis catheter sent to pathology Surgeon: Jayjay Wise MD Water Restoration Technician: N/A Anesthesia: MAC Estimated blood loss (mL): 30 Complications: N/A Findings: Tip of catheter at atriocaval junction. Placed a 23 cm tunneled dialysis catheter via a right IJ approach. Able to draw blood and flush easily through both channels. Hep-locked. Removed old right subclavian temporary dialysis catheter. Sent tip for culture. The rest was sent to pathology. Condition: stable Disposition: ICU Brief History: 74-year-old female whom surgery was consulted for tunneled dialysis catheter. Discussed risk and benefits and patient's POA decided to proceed with tunneled dialysis catheter insertion. Procedure: The patient was taken to the operating room and placed under MAC after IV antibiotic had been administered. The chest and neck were prepped and draped in a sterile manner bilaterally. An ultrasound of the right internal jugular vein revealed patent flow, no thrombus identified. Using introducer needle the internal jugular vein on the right side was accessed and guidewire passed into the right atrium under fluoroscopy. Under fluoroscopy the location for the dialysis catheter was marked. Using 15 blade a skin incision was extended at the vein access site as well as the previously marked location on the right chest wall. The dialysis catheter was attached to the tunneler and passed subcutaneously, exiting at the venous access site. Serial dilators were passed over the guidewire under fluoroscopy. Finally the dilator peel-away sheath was passed over the guidewire and the inner dilator and guidewire was removed and the dialysis catheter was introduced into the right internal jugular vein as the peel-away sheath was removed. The tip of the catheter was noted to be at the atriocaval junction. Both ports of the catheter jon blood and flushed easily. The catheter was sutured to the skin using 3-0 Prolene and the venous access site was closed with 4-0 Monocryl and Dermabond. A total of 5 mL of 1:10,000 heparin was injected into the 2 ports under dialysis catheter. Fluoroscopic guidance and interpretation for passage of guidewire and dilator and placement of catheter in the atriocaval junction. Right subclavian temporary dialysis catheter was removed successfully. Tip of catheter was sent to micro for culture. Rest of catheter was sent to pathology. Pressure was held over the tract site for 5 minutes. Adequate hemostasis was achieved.
--- NOTE | 2025-08-14 13:10 | SC_ITS ---
WS: [id number] INTRAOPERATIVE TECHNIQUE: 2 Spot fluoroscopic images for intraoperative purposes. FLUOROSCOPY TIME: 36.3 seconds CLINICAL INFORMATION: PORT FINDINGS: Dual-lumen RIGHT central venous catheter with tips in the innominate vein at the thoracic inlet. No visualized pneumothorax. SC/C-arm [place] for CVA [id number] IMPRESSION: Images obtained for intraoperative purposes.
[2025-08-14] MEDS: pantoprazole 40 mg SDV IVP (16:57)
--- NOTE | 2025-08-14 17:06 | ANE.PACU2 ---
Inpatient post-anesthesia follow up: Airway intact: Yes Vital signs: Temperature 97.8 F Pulse Rate 84 Respiratory Rate 13 Blood Pressure 140/88 Pulse Oximetry 90 Oxygen Delivery Me thod Nasal Cannula Oxygen Flow Rate 4 Fraction of Inspir ed Oxygen Hydration adequate: Yes Nausea and vomiting: No Pain level: 2 Mental status: Baseline
--- NOTE | 2025-08-14 18:17 | P.PN_ITS ---
Subjective 2 Subjective: The patient was seen today in the morning lying on lateral side. Not in distress was sleeping comfortably When called her name she reports feeling fine and no complaints or concerns The patient was having iron infusion ongoing The is agreeing to proceed with hemodialysis and was also inquiring about the hemodialysis and follow-up of learning and development coordinator at the other hemodialysis center. The patient will be going postdischarge after arrangement with the case folder. His questions and concerns were addressed and he understands and agree with the plan of care Medications: Reviewed: Yes Medication Review Details: Current Medications Acetaminophen (Acetaminophen 325 Mg Tablet) 650 mg PO Q6H PRN PRN Reason: Mild/Mod Pain Or Temp >/= 101 Hydrocodone Bitart/Acetaminophen (Hydrocodone-Acetaminophen 10-325 Mg Tablet) 1 tab PO Q8H PRN PRN Reason: pain (scale score 7-10) Last Admin: 08/12/25 02:16 Dose: 1 tab Albuterol/Ipratropium (Ipratropium-Albuterol 3 Ml Neb) 3 ml INHALATION Q6H.RESP [facility] Last Admin: 08/13/25 08:26 Dose: 3 ml Aripiprazole (Aripiprazole 2 Mg Tablet) 2 mg PO DAILY [facility] Last Admin: 08/13/25 04:57 Dose: 2 mg Budesonide (Budesonide 0.5 Mg/2 Ml Neb) 0.5 mg INHALATION BID.RESPIRATORY [facility] Last Admin: 08/13/25 08:26 Dose: 0.5 mg Calcitriol (Calcitriol 0.25 Mcg Capsule) 0.25 mcg PO DAILY [facility] Last Admin: 08/13/25 04:57 Dose: 0.25 mcg Ceftriaxone Sodium (Ceftriaxone 1,000 Mg Sdv) 1,000 mg IVP Q24H [facility]; Protocol Stop: 08/14/25 14:59 Last Admin: 08/12/25 14:46 Dose: 1,000 mg Diltiazem HCl (Diltiazem 30 Mg Tablet) 60 mg PO QID [facility] Last Admin: 08/13/25 04:58 Dose: 60 mg Docusate Sodium (Docusate Sodium 100 Mg Capsule) 100 mg PO BID [facility] Last Admin: 08/13/25 04:57 Dose: 100 mg Gabapentin (Gabapentin 100 Mg Capsule) 100 mg PO DAILY [facility] Last Admin: 08/13/25 04:58 Dose: 100 mg Heparin Sodium (Porcine) (Heparin 5,000 Unit/Ml Inj 1 Ml) 5,000 unit SUBCUT Q12H [facility] Last Admin: 08/13/25 04:58 Dose: 5,000 unit Hydralazine HCl (Hydralazine 20 Mg/Ml Inj 1 Ml) 10 mg IVP Q4H PRN PRN Reason: hypertension Last Admin: 08/09/25 20:41 Dose: 10 mg Ferric Sodium Gluconate 125 mg (/ Sodium Chloride) 110 mls @ 110 mls/hr IV Q24H [facility] Stop: 08/17/25 08:29 Last Admin: 08/12/25 10:43 Dose: Not Given Lactulose (Lactulose Oral Liq 20 Gm/30 Ml Udc) 10 gm PO DAILY PRN; Protocol PRN Reason: Constipation (see protocol) Magnesium Hydroxide (Magnesium Hydroxide 30 Ml Udc) 30 ml PO DAILY PRN; Protocol PRN Reason: Constipation (see protocol) Metoprolol Tartrate (Metoprolol Tartrate 50 Mg Tablet) 50 mg PO BID [facility] Last Admin: 08/13/25 04:57 Dose: 50 mg Morphine Sulfate (Morphine 4 Mg/Ml Sdv 1 Ml) 2 mg IVP Q4H PRN PRN Reason: SEVERE PAIN Last Admin: 08/11/25 16:09 Dose: 2 mg Ondansetron HCl (Ondansetron 2 Mg/Ml Sdv 2 Ml) 4 mg IVP Q6H PRN PRN Reason: vomiting, or N/V if npo Pantoprazole Sodium (Pantoprazole 40 Mg Sdv) 40 mg IVP Q24H [facility] Last Admin: 08/12/25 17:22 Dose: 40 mg Venlafaxine HCl (Venlafaxine Er (24hr) 75 Mg Capsule) 75 mg PO DAILY [facility] Last Admin: 08/13/25 04:57 Dose: 75 mg Vitals/I&O/Wt Last Vital Signs Temp 97.8 F 08/14/25 07:30 Pulse 84 08/14/25 16:00 Resp 13 08/14/25 16:00 BP 140/88 08/14/25 16:00 Pulse Ox 90 08/14/25 16:00 O2 Del Method Nasal Cannula 08/14/25 16:00 O2 Flow Rate 4 08/14/25 16:00 12/16/25 12/16/25 12/16/25 06:59 14:59 22:59 Output Total 50 / 2550 Balance -50 / -1540 Weight last 48 hrs Weight 69.5 kg Weight 67.5 kg Weight 71.5 kg Physical Exam 2 Narrative: General: Alert and oriented, lying on 1 side of the bed with oxygen supplementation through nasal cannula. HEENT: Normocephalic, atraumatic, grossly unremarkable exam Cardio: Normal rate rhythm normal S1-S2 without any murmurs, rubs Respiratory: normal vascular breathing on auscultation without any wheezes, no stridor but having mild basal crackles GI: Abdomen soft, nontender, nondistended, normoactive bowel sounds present all 4 quadrants, Neuro: intact cranial nerves motor and sensory and cerebellar/coordination function without any focal neurological deficit Behavior: Appropriate and cooperative Extremities: mild trace edema, pt having mild pallor positive Urinary Catheter Management: Pugh: Cath Placed During This Visit: yes Reason for Continuing Indwelling Catheter: Accurate Measurement of Urinary Output in Critically Ill Patients Urinary Catheter Date of Insertion: 08/08/25 Urinary Catheter Time of Insertion: 16:57 Data 08/14/25 05:52 08/14/25 05:52 Micro: Microbiology 08/08/25 14:07 Blood Culture - Final Blood NO GROWTH AFTER 5 DAYS 08/08/25 14:05 Blood Culture - Final Blood NO GROWTH AFTER 5 DAYS A&P Assessment and plan 1. Acute kidney injury superimposed on CKD: seems to have SHABANA on CKD but the current SHABANA is questionable? biopsy could further answer the etiology however after discussing with the nephro onboard, it may carry high risk than benefit in her case. the prefers to initiates HD, surgery onboard, and s/p PermCath placement 08/14/2025 Follow recommendation from nephrology monitor intake and output daily RFTs and electrolytes with correction accordingly daily wt analysis 2. Atrial fibrillation with RVR: Not a known diagnosis. Likely in the setting of sepsis. Was placed on cardizem drip. Currently stable, sometimes goes to high as 130s to 140s during hemodialysis. On home metoprolol- resumed. Cardizem PO- continue Echo obtained and noted- EF 60 percent, moderate pulmonary hypertension, severe tricuspid regurg. pt still having HR around 100s and goes above 130s during HD session alongwith uncontrolled HTN started pt on hydralaizine 25 tid and to monitor hemodynamics Maintain MAP >65mmhg telemetry monitoring in case of increased HR or symptomatic tachycardia, stat EKG and trops as clinically indicated 3. Transaminitis: Likely in the setting of sepsis Continue to monitor LFT- improving US abdomen unremarkable cont to monitor 4. Sepsis: SIRS: Tachycardic, Leukocytosis high likely pneumonia based on her cxr findings at admission with some interstitial markings and SOB? pt currently having adequaet capillary refills and pulses, still mild SOB since she is ESRD and there are signs of symptoms of fluid overload that requires her to have HD cont ceftriaxone with stop date of 08/14 monitor for any fever spikes or hypotension with signs of sepsis, and if present repeat cultures and consider surgery onboard for possible central line removal to avoid any CLABSI MAP maintained above 65mmhg sepsis resolved 5. Dementia: Patient with h/o dementia. Has been at home with spouse prior to current admission Supportive care case folder onboard 6. Primary hypertension: intermittently uncontrolled Hydralazine 50 mg 3 times daily cont metoprolol 50mg bid for at fib and also contributes to BP control and diltiazem 60 qid for at fib and also contributes to BP control 7. Thrombocytopenia: heparin held, on SCDs, platelets stable vit b12 levels adequate possible progressive renal disease? medications reviewed cont to monitor cbc and platelets and also monitor for any obvious source of bleeding HIT studies for diagnostic purpose Plan: Plan- patient's spouse finalised to go for HD and rehab placement for her, nephrology on board, to follow-up with the patient case coordinator as well for arrangement VTE: SCDs, pt having throbocytopenia Discussed with care team members. PDMP PDMP Reviewed: Not Reviewed Attestations 2 Medical Necessity Statement*: Patient will stay overnight following PermCath insertion and to follow the nephrology recommendation with further plan for her discharge and arrange hemodialysis at a different facility with the hope of case management Time Spent in Patient Care: 16 - 35 minutes (>than 50% of time sp ent in counselling and/or direct pt care on unit) . Other Attestations: Patient condition has been discussed at length with the patient/family, I have independently reviewed the chart labs imaging/diagnostics/EKG. the goals of care and code status with the patient/family/NOK/legal technical service representative, and documented accordingly. I have reconciled the medications after confirmation/comorbidities/current clinical condition. The management has been done according to the current clinical condition with respect to patient goals of care and based on recommendations/guidelines. The patient/family has been informed about the current condition and further plan of care. Agreed with the plan of care and understood without any language barrier. Every effort was made to ensure accuracy of churner. Any obvious errors or omissions should be clarified with the author of the document. Coding Level of Care Code 46080 Diagnoses Acute kidney injury superimposed on CKD N17.9; N18.9 Atrial fibrillation with RVR I48.91 Transaminitis R74.01 Sepsis A41.9 Sepsis type: sepsis due to unspecified organism Sepsis acute organ dysfunction status: with acute organ dysfunction Severe sepsis shock status: without septic shock Dementia F03.90 Primary hypertension I10 Hypertension type: primary hypertension Thrombocytopenia D69.6
--- NOTE | 2025-08-14 20:03 | P.PN_ITS ---
Subjective 2 Subjective: Events noted Medications: Reviewed: Yes Vitals/I&O/Wt Last Vital Signs Temp 97.8 F 08/14/25 07:30 Pulse 84 08/14/25 16:00 Resp 13 08/14/25 16:00 BP 140/88 08/14/25 16:00 Pulse Ox 90 08/14/25 16:00 O2 Del Method Nasal Cannula 08/14/25 16:00 O2 Flow Rate 4 08/14/25 16:00 08/14/25 08/14/25 08/14/25 06:59 14:59 22:59 Intake Total 240 / 240 Output Total 50 / 2550 Balance -50 / -1540 240 / 240 Weight last 48 hrs Weight 69.5 kg Weight 67.5 kg Weight 71.5 kg Physical Exam 2 Narrative: Vital signs noted. Patient comfortable in bed no apparent distress. using nasal cannula oxygen. HEENT normocephalic atraumatic. Neck is supple lungs have crackles heart is irregular irregular, positive S1-S2. Abdomen is soft nontender nondistended positive bowel sounds extremities trace edema. Dialysis access right subclavian. Neurologically more awake alert oriented times 1. She does not know why she is here or the date.. She is following commands, interactive Urinary Catheter Management: Pugh: Cath Placed During This Visit: yes Reason for Continuing Indwelling Catheter: Accurate Measurement of Urinary Output in Critically Ill Patients Urinary Catheter Date of Insertion: 08/08/25 Urinary Catheter Time of Insertion: 16:57 Data 08/14/25 05:52 08/14/25 05:52 Micro: Microbiology 08/08/25 14:07 Blood Culture - Final Blood NO GROWTH AFTER 5 DAYS 08/08/25 14:05 Blood Culture - Final Blood NO GROWTH AFTER 5 DAYS A&P Assessment and plan 1. Acute kidney injury superimposed on CKD: 74-year-old lady with depression atrophic left kidney CKD stage III baseline creatinine 1.8 mg/dL hypertension hyperlipidemia. Patient is here now with weakness and confusion and falls. 1. 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 Other serologies negative so far. Imaging reveals normal right kidney mild perinephric stranding no obstruction or left kidney severe atrophy. - Urinalysis is red slightly cloudy, She had 0-4 red cells 5-10 white cells 3- 4 squamous epithelial cells - Patient was initiated on dialysis via temporary catheter and switched to permacath today - Will plan on dialysis tomorrow, no renal recovery so far. - Biopsy was discussed but due to solitary functioning kidney, would not recommend biopsy at this time without a strong indication. 2. Anemia:, Monitor, 3. Metabolic acidosis: Improved monitor Patient evaluated using audiovisual cart. Time spent 40 minutes. Plan: See above. Plan would be for permacath can discuss outpatient dialysis with the family and monitoring for renal recovery there for consideration of transferring for biopsy though they question would be if we could find something reversible. PDMP PDMP Reviewed: Not Reviewed Attestations 2 Medical Necessity Statement*: Per medicine team Coding Level of Care Code Acute Code for Chg Fwd Diagnoses Acute kidney injury superimposed on CKD N17.9; N18.9
[2025-08-15] VITALS (49 sets, daily range): BP systolic 114–164; BP diastolic 57–115; PULSE 64–103; RESP 12–25; TEMP 35.9–36.8; O2SAT 89–94
[2025-08-15 04:04] LABS: Hematocrit 31.6 % (36-47); Hemoglobin 9.90 g/dL (11.27-16.99); Mean Corpuscular HGB Conc 31.3 g/dL (30-55); Mean Corpuscular Hemoglobin 29.3 pg (27-33); Mean Corpuscular Volume 93.5 fl (85-98); Nucleated Red Blood Cells % 0 %; Platelet Count 176 10^3/cmm (157-399); Red Blood Count 3.38 10^6/uL (3.85-5.65); White Blood Count 13.23 10^3/uL (3.29-11.43)
[2025-08-15 04:22] LABS: Lactate (Lactic Acid level) 1.0 mmol/L (0.5-2.2)
[2025-08-15 04:34] LABS: Alanine Aminotransferase 22 U/L (0-33); Albumin Level 3.0 g/dL (3.5-5.2); Alkaline Phosphatase 197 U/L (35-105); Anion Gap 20.1 (5-19); Aspartate Amino Transferase 18 U/L (0-32); Blood Urea Nitrogen 37 mg/dL (8-23); Calcium 9.5 mg/dL (8.5-10.5); Carbon Dioxide 23 mmol/L (22-29); Chloride 97 mmol/L (98-107); Globulin 2.7 g/dL (1.3-4.6); Glucose 100 mg/dL (65-115); Osmolality Calculated 291 mOsm/kg (285-295); Potassium 4.1 mmol/L (3.5-5.1); Sodium 136 mmol/L (136-145); Total Protein 5.7 g/dL (6.6-8.7)
[2025-08-15] MEDS: venlafaxine ER (24HR) 75 mg Capsule PO (04:56)
[2025-08-15] MEDS: ferric gluconate 125 MG in sodium chloride 0.9% (100 ml) 100 ML 110 MG IV (07:50)
--- NOTE | 2025-08-15 08:40 | P.PN_ITS ---
Subjective 2 Subjective: No acute events overnight Right IJ tunneled dialysis catheter in place. Will do dialysis today Vitals/I&O/Wt Last Vital Signs Temp 97.0 F L 08/15/25 07:00 Pulse 79 08/15/25 07:00 Resp 19 H 08/15/25 07:00 BP 131/81 08/15/25 07:00 Pulse Ox 91 08/15/25 07:00 O2 Del Method Nasal Cannula 08/15/25 07:00 O2 Flow Rate 4 08/15/25 07:00 08/14/25 08/15/25 08/15/25 22:59 06:59 14:59 Intake Total 320 / 430 60 / 490 Balance 320 / 430 60 / 490 Weight last 48 hrs Weight 161 lb 3.91 oz Weight 153 lb 3.54 oz Weight 148 lb 12.992 oz Physical Exam 2 Narrative: Chest: Unlabored breathing room air. Right IJ tunneled dialysis catheter in place Heart: Regular rate and rhythm. Abdomen: Soft, nontender, nondistended. No masses or lymphadenopathy. Urinary Catheter Management: Pugh: Cath Placed During This Visit: yes Reason for Continuing Indwelling Catheter: Accurate Measurement of Urinary Output in Critically Ill Patients Urinary Catheter Date of Insertion: 08/08/25 Urinary Catheter Time of Insertion: 16:57 Data 08/15/25 03:25 08/15/25 03:25 A&P Assessment and plan 1. Acute kidney injury superimposed on CKD: Plan: 74-year-old female with a history of chronic kidney disease. POD1 tunneled dialysis catheter insertion. Catheter is ready for use. Call with questions. PDMP PDMP Reviewed: Not Reviewed Attestations 2 Medical Necessity Statement*: N/A Coding Level of Care Code 12593 Diagnoses Acute kidney injury superimposed on CKD N17.9; N18.9
[2025-08-15] MEDS: heparin, porcine 1,000 unit/mL INJ 10 mL 1000 UNIT IV (09:05)
--- NOTE | 2025-08-15 11:14 | PC.SOCIAL ---
IMM Updated Updated pt on IMM. No questions voiced. Provided pt a copy. Initialed, dated, & timed copy in chart.
--- NOTE | 2025-08-15 13:48 | P.PN_ITS ---
Subjective 2 Subjective: s/p HD yesterday Medications: Reviewed: Yes Vitals/I&O/Wt Last Vital Signs Temp 96.6 F L 08/15/25 09:14 Pulse 85 08/15/25 12:00 Resp 22 H 08/15/25 12:00 BP 122/78 08/15/25 12:00 Pulse Ox 91 08/15/25 12:00 O2 Del Method Nasal Cannula 08/15/25 12:00 O2 Flow Rate 4 08/15/25 12:00 08/14/25 08/15/25 08/15/25 22:59 06:59 14:59 Intake Total 320 / 430 60 / 490 240 / 240 Balance 320 / 430 60 / 490 240 / 240 Weight last 48 hrs Weight 73.139 kg Weight 69.5 kg Weight 67.5 kg Physical Exam 2 Narrative: Vital signs noted. Patient comfortable in bed no apparent distress. using nasal cannula oxygen. HEENT normocephalic atraumatic. Neck is supple lungs have crackles heart is irregular irregular, positive S1-S2. Abdomen is soft nontender nondistended positive bowel sounds extremities trace edema. Urinary Catheter Management: Pugh: Cath Placed During This Visit: yes Reason for Continuing Indwelling Catheter: Accurate Measurement of Urinary Output in Critically Ill Patients Urinary Catheter Date of Insertion: 08/08/25 Urinary Catheter Time of Insertion: 16:57 Data 08/15/25 03:25 08/15/25 03:25 A&P Assessment and plan 1. Acute kidney injury superimposed on CKD: 74-year-old lady with depression atrophic left kidney CKD stage III baseline creatinine 1.8 mg/dL hypertension hyperlipidemia. Patient is here now with weakness and confusion and falls. 1. 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 Other serologies negative so far. Imaging reveals normal right kidney mild perinephric stranding no obstruction or left kidney severe atrophy. - Urinalysis is red slightly cloudy, She had 0-4 red cells 5-10 white cells 3- 4 squamous epithelial cells - Patient was initiated on dialysis via temporary catheter and switched to permacath - Will plan on dialysis today, no renal recovery so far. - Biopsy was discussed but due to solitary functioning kidney, would not recommend biopsy at this time without a strong indication. 2. Anemia:, Monitor, 3. Metabolic acidosis: Improved monitor Patient evaluated using audiovisual cart. Time spent 40 minutes. Plan: See above. Plan would be for permacath can discuss outpatient dialysis with the family and monitoring for renal recovery there for consideration of transferring for biopsy though they question would be if we could find something reversible. PDMP PDMP Reviewed: Not Reviewed Attestations 2 Medical Necessity Statement*: per medicine Coding Level of Care Code Acute Code for Chg Fwd Diagnoses Acute kidney injury superimposed on CKD N17.9; N18.9
[2025-08-15] MEDS: pantoprazole 40 mg SDV IVP (16:56)
--- NOTE | 2025-08-15 22:21 | PM.PN ---
Subjective Subjective: s/p HD yesterday, currently well and feels better much alert and interactive no concerns voiced by the patient Medications: Reviewed: Yes Medication Review Details: Current Medications Acetaminophen (Acetaminophen 325 Mg Tablet) 650 mg PO Q6H PRN PRN Reason: Mild/Mod Pain Or Temp >/= 101 Hydrocodone Bitart/Acetaminophen (Hydrocodone-Acetaminophen 10-325 Mg Tablet) 1 tab PO Q8H PRN PRN Reason: pain (scale score 7-10) Last Admin: 08/12/25 02:16 Dose: 1 tab Albuterol/Ipratropium (Ipratropium-Albuterol 3 Ml Neb) 3 ml INHALATION Q6H.RESP [facility] Last Admin: 08/13/25 08:26 Dose: 3 ml Aripiprazole (Aripiprazole 2 Mg Tablet) 2 mg PO DAILY [facility] Last Admin: 08/13/25 04:57 Dose: 2 mg Budesonide (Budesonide 0.5 Mg/2 Ml Neb) 0.5 mg INHALATION BID.RESPIRATORY [facility] Last Admin: 08/13/25 08:26 Dose: 0.5 mg Calcitriol (Calcitriol 0.25 Mcg Capsule) 0.25 mcg PO DAILY [facility] Last Admin: 08/13/25 04:57 Dose: 0.25 mcg Ceftriaxone Sodium (Ceftriaxone 1,000 Mg Sdv) 1,000 mg IVP Q24H [facility]; Protocol Stop: 08/14/25 14:59 Last Admin: 08/12/25 14:46 Dose: 1,000 mg Diltiazem HCl (Diltiazem 30 Mg Tablet) 60 mg PO QID [facility] Last Admin: 08/13/25 04:58 Dose: 60 mg Docusate Sodium (Docusate Sodium 100 Mg Capsule) 100 mg PO BID [facility] Last Admin: 08/13/25 04:57 Dose: 100 mg Gabapentin (Gabapentin 100 Mg Capsule) 100 mg PO DAILY [facility] Last Admin: 08/13/25 04:58 Dose: 100 mg Heparin Sodium (Porcine) (Heparin 5,000 Unit/Ml Inj 1 Ml) 5,000 unit SUBCUT Q12H [facility] Last Admin: 08/13/25 04:58 Dose: 5,000 unit Hydralazine HCl (Hydralazine 20 Mg/Ml Inj 1 Ml) 10 mg IVP Q4H PRN PRN Reason: hypertension Last Admin: 08/09/25 20:41 Dose: 10 mg Ferric Sodium Gluconate 125 mg (/ Sodium Chloride) 110 mls @ 110 mls/hr IV Q24H [facility] Stop: 08/17/25 08:29 Last Admin: 08/12/25 10:43 Dose: Not Given Lactulose (Lactulose Oral Liq 20 Gm/30 Ml Udc) 10 gm PO DAILY PRN; Protocol PRN Reason: Constipation (see protocol) Magnesium Hydroxide (Magnesium Hydroxide 30 Ml Udc) 30 ml PO DAILY PRN; Protocol PRN Reason: Constipation (see protocol) Metoprolol Tartrate (Metoprolol Tartrate 50 Mg Tablet) 50 mg PO BID [facility] Last Admin: 08/13/25 04:57 Dose: 50 mg Morphine Sulfate (Morphine 4 Mg/Ml Sdv 1 Ml) 2 mg IVP Q4H PRN PRN Reason: SEVERE PAIN Last Admin: 08/11/25 16:09 Dose: 2 mg Ondansetron HCl (Ondansetron 2 Mg/Ml Sdv 2 Ml) 4 mg IVP Q6H PRN PRN Reason: vomiting, or N/V if npo Pantoprazole Sodium (Pantoprazole 40 Mg Sdv) 40 mg IVP Q24H [facility] Last Admin: 08/12/25 17:22 Dose: 40 mg Venlafaxine HCl (Venlafaxine Er (24hr) 75 Mg Capsule) 75 mg PO DAILY [facility] Last Admin: 08/13/25 04:57 Dose: 75 mg Vitals/I&O/Wt Last Vital Signs Temp 97.2 F L 08/15/25 15:02 Pulse 79 08/15/25 19:39 Resp 20 H 08/15/25 19:39 BP 164/96 08/15/25 16:00 Pulse Ox 93 08/15/25 19:39 O2 Del Method Nasal Cannula 08/15/25 19:39 O2 Flow Rate 4 08/15/25 19:39 08/15/25 08/15/25 08/15/25 06:59 14:59 22:59 Intake Total 60 / 490 240 / 240 600 / 840 Output Total 3100 / 3100 Balance 60 / 490 240 / 240 -2500 / -2260 Weight last 48 hrs Weight 73 kg Weight 73.139 kg Weight 69.5 kg Physical Exam Narrative: General: Alert and oriented, lying on the bed with oxygen supplementation through nasal cannula. HEENT: Normocephalic, atraumatic, grossly unremarkable exam Cardio: Normal rate rhythm normal S1-S2 without any murmurs, rubs Respiratory: normal vascular breathing on auscultation without any wheezes, no stridor but having mild basal crackles GI: Abdomen soft, nontender, nondistended, normoactive bowel sounds present all 4 quadrants, Neuro: intact cranial nerves motor and sensory and cerebellar/coordination function without any focal neurological deficit Behavior: Appropriate and cooperative Extremities: mild trace edema, pt having mild pallor positive Urinary Catheter Management: Pugh: Cath Placed During This Visit: yes Reason for Continuing Indwelling Catheter: Accurate Measurement of Urinary Output in Critically Ill Patients Urinary Catheter Date of Insertion: 08/08/25 Urinary Catheter Time of Insertion: 16:57 Data 08/15/25 03:25 08/15/25 03:25 Micro: Microbiology 08/14/25 12:54 Catheter Tip Culture - Preliminary Other Source A&P Assessment and plan 1. Acute kidney injury superimposed on CKD: s/p permcath insertion and tolerating HD seems to have SHABANA on CKD but the current SHABANA is questionable? biopsy could further answer the etiology however after discussing with the nephro onboard, it may carry high risk than benefit in her case. the prefers to initiates HD, surgery onboard, and s/p PermCath placement 08/14/2025 Follow recommendation from nephrology monitor intake and output daily RFTs and electrolytes with correction accordingly daily wt analysis 2. Atrial fibrillation with RVR: Not a known diagnosis. Likely in the setting of sepsis. Was placed on cardizem drip. Currently stable, sometimes goes to high as 130s to 140s during hemodialysis. On home metoprolol- resumed. Cardizem PO- continue Echo obtained and noted- EF 60 percent, moderate pulmonary hypertension, severe tricuspid regurg. pt still having HR around 100s and goes above 130s during HD session alongwith uncontrolled HTN Maintain MAP >65mmhg telemetry monitoring in case of increased HR or symptomatic tachycardia, stat EKG and trops as clinically indicated 3. Transaminitis: Likely in the setting of sepsis Continue to monitor LFT- improving US abdomen unremarkable cont to monitor 4. Sepsis: SIRS: Tachycardic, Leukocytosis high likely pneumonia based on her cxr findings at admission with some interstitial markings and SOB? pt currently having adequate capillary refills and pulses, still mild SOB since she is ESRD and there are signs of symptoms of fluid overload that requires her to have HD given ceftriaxone with stop date of 08/14 monitor for any fever spikes or hypotension with signs of sepsis, and if present repeat cultures and consider surgery onboard for possible central line removal to avoid any CLABSI MAP maintained above 65mmhg sepsis resolved 5. Dementia: Patient with h/o dementia. Has been at home with spouse prior to current admission Supportive care ed case manager onboard 6. Primary hypertension: intermittently uncontrolled Hydralazine 50 mg 3 times daily cont metoprolol 50mg bid for at fib and also contributes to BP control and diltiazem 60 qid for at fib and also contributes to BP control (IT IS IMPORTANT TO SPACE OUT MEDICATIONS TO AVOID HYPOTENSION DURING HD, IF THE PATIENT IS HAVING FREQUENT LOW BP READINGS THEN TO ADJUST THE DOSE OF ANTI HTN OR BP LOWERING MEDS) 7. Thrombocytopenia: heparin held, on SCDs, platelets stable vit b12 levels adequate possible progressive renal disease? medications reviewed cont to monitor cbc and platelets and also monitor for any obvious source of bleeding HIT studies for diagnostic purpose Plan: Plan- patient's spouse finalised to go for HD and rehab placement for her, nephrology on board, to follow-up with the casework specialist as well for arrangement VTE: SCDs, pt having throbocytopenia Discussed with care team members. PDMP PDMP Reviewed: Not Reviewed Attestations Medical Necessity Statement*: Patient will stay overnight for arrangement of postdischarge rehab by the case management and also inpatient management of her end-stage renal disease requiring dialysis and further nephrology plan of care Time Spent in Patient Care: 16 - 35 minutes (>than 50% of time spent in counselling and/or direct pt care on unit). Other Attestations: Patient condition has been discussed at length with the patient/family, I have independently reviewed the chart labs imaging/diagnostics/EKG. the goals of care and code status with the patient/family/NOK/legal insurance representative, and documented accordingly. I have reconciled the medications after confirmation/comorbidities/current clinical condition. The management has been done according to the current clinical condition with respect to patient goals of care and based on recommendations/guidelines. The patient/family has been informed about the current condition and further plan of care. Agreed with the plan of care and understood without any language barrier. Every effort was made to ensure accuracy of rugby union footballer. Any obvious errors or omissions should be clarified with the author of the document. Coding Level of Care Code 48580 Diagnoses Acute kidney injury superimposed on CKD N17.9; N18.9 Atrial fibrillation with RVR I48.91 Transaminitis R74.01 Sepsis A41.9 Sepsis acute organ dysfunction status: with acute organ dysfunction Sepsis type: sepsis due to unspecified organism Severe sepsis shock status: without septic shock Dementia F03.90 Primary hypertension I10 Hypertension type: primary hypertension Thrombocytopenia D69.6
[2025-08-16] VITALS (42 sets, daily range): BP systolic 106–163; BP diastolic 56–107; PULSE 60–96; RESP 13–27; TEMP 36.2–37; O2SAT 88–94
[2025-08-16] MEDS: hyDRALAzine 20 mg/mL INJ 1 mL 10 MG IVP (02:22)
--- NOTE | 2025-08-16 02:54 | PC.NURSE ---
Carolyn Stewart notified of patient's elevated blood pressure, currently 148/100. Orders placed by physician for cardizem PO dose.
[2025-08-16 04:14] LABS: Hematocrit 32.6 % (36-47); Hemoglobin 10.00 g/dL (11.27-16.99); Mean Corpuscular HGB Conc 30.7 g/dL (30-55); Mean Corpuscular Hemoglobin 28.9 pg (27-33); Mean Corpuscular Volume 94.2 fl (85-98); Nucleated Red Blood Cells % 0 %; Platelet Count 163 10^3/cmm (157-399); Red Blood Count 3.46 10^6/uL (3.85-5.65); White Blood Count 14.45 10^3/uL (3.29-11.43)
[2025-08-16 04:38] LABS: Alanine Aminotransferase 9 U/L (0-33); Albumin Level 2.9 g/dL (3.5-5.2); Alkaline Phosphatase 245 U/L (35-105); Anion Gap 21.0 (5-19); Aspartate Amino Transferase 23 U/L (0-32); Blood Urea Nitrogen 37 mg/dL (8-23); Calcium 9.2 mg/dL (8.5-10.5); Carbon Dioxide 21 mmol/L (22-29); Chloride 96 mmol/L (98-107); Globulin 2.6 g/dL (1.3-4.6); Glucose 98 mg/dL (65-115); Osmolality Calculated 287 mOsm/kg (285-295); Potassium 4.0 mmol/L (3.5-5.1); Sodium 134 mmol/L (136-145); Total Protein 5.5 g/dL (6.6-8.7)
[2025-08-16] MEDS: venlafaxine ER (24HR) 75 mg Capsule PO (04:40)
--- NOTE | 2025-08-16 06:59 | PC.NURSE ---
Blood Pressure Patient's blood pressure ranging from 110-120's systolic with 90 mg cardizem PO due. PO hydralazine as well as PO metoprolol administered as ordered. Cardizem PO not administered pending verification from physician; message left as well as phone call attempted.
[2025-08-16] MEDS: ferric gluconate 125 MG in sodium chloride 0.9% (100 ml) 100 ML 110 MG IV (07:49)
--- NOTE | 2025-08-16 08:08 | P.PN_ITS ---
Subjective 2 Subjective: s/p hD yesterday Medications: Reviewed: Yes Vitals/I&O/Wt Last Vital Signs Temp 98.3 F 08/16/25 04:30 Pulse 80 08/16/25 06:10 Resp 23 H 08/16/25 06:00 BP 108/68 08/16/25 06:00 Pulse Ox 91 08/16/25 06:00 O2 Del Method Nasal Cannula 08/16/25 04:30 O2 Flow Rate 4 08/16/25 04:30 08/15/25 08/16/25 08/16/25 22:59 06:59 14:59 Intake Total 600 / 950 355 / 1305 Output Total 3100 / 3100 10 3110 Balance -2500 / -2150 345 / -1805 Weight last 48 hrs Weight 69.5 kg Weight 73 kg Weight 73.139 kg Physical Exam 2 Narrative: Vital signs noted. Patient comfortable in bed no apparent distress. using nasal cannula oxygen. HEENT normocephalic atraumatic. Neck is supple lungs have crackles heart is irregular irregular, positive S1-S2. Abdomen is soft nontender nondistended positive bowel sounds extremities trace edema. Urinary Catheter Management: Pugh: Cath Placed During This Visit: yes Reason for Continuing Indwelling Catheter: Accurate Measurement of Urinary Output in Critically Ill Patients Urinary Catheter Date of Insertion: 08/08/25 Urinary Catheter Time of Insertion: 16:57 Data 08/16/25 03:44 08/16/25 03:44 Micro: Microbiology 08/14/25 12:54 Catheter Tip Culture - Preliminary Other Source A&P Assessment and plan 1. Acute kidney injury superimposed on CKD: 74-year-old lady with depression atrophic left kidney CKD stage III baseline creatinine 1.8 mg/dL hypertension hyperlipidemia. Patient is here now with weakness and confusion and falls. 1. 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 Other serologies negative so far. Imaging reveals normal right kidney mild perinephric stranding no obstruction or left kidney severe atrophy. - Urinalysis is red slightly cloudy, She had 0-4 red cells 5-10 white cells 3- 4 squamous epithelial cells - Patient was initiated on dialysis via temporary catheter and switched to permacath - HD per MWF schedule , no renal recovery so far. -talent acquisition project manager to set up out pt hD chair - Biopsy was discussed but due to solitary functioning kidney, would not recommend biopsy at this time without a strong indication. 2. Anemia:, Monitor, 3. Metabolic acidosis: Improved monitor Patient evaluated using audiovisual cart. Time spent 40 minutes. Plan: See above. Plan would be for permacath can discuss outpatient dialysis with the family and monitoring for renal recovery there for consideration of transferring for biopsy though they question would be if we could find something reversible. PDMP PDMP Reviewed: Not Reviewed Attestations 2 Medical Necessity Statement*: per geoffreypr Coding Level of Care Code Acute Code for Chg Fwd Diagnoses Acute kidney injury superimposed on CKD N17.9; N18.9
--- NOTE | 2025-08-16 15:38 | P.PN_ITS ---
Subjective 2 Subjective: No acute events overnight Vitals/I&O/Wt Last Vital Signs Temp 98.3 F 08/16/25 04:30 Pulse 64 08/16/25 13:44 Resp 19 H 08/16/25 13:44 BP 143/86 08/16/25 12:00 Pulse Ox 92 08/16/25 13:44 O2 Del Method Nasal Cannula 08/16/25 13:44 O2 Flow Rate 4.5 08/16/25 13:44 08/16/25 08/16/25 08/16/25 06:59 14:59 22:59 Intake Total 355 / 1305 240 / 240 Output Total 3109 Balance 345 / -1805 240 / 240 Weight last 48 hrs Weight 153 lb 3.54 oz Weight 160 lb 14.999 oz Weight 161 lb 3.91 oz Physical Exam 2 Narrative: Chest: Unlabored breathing room air. Dialysis catheter working Heart: Regular rate and rhythm. Abdomen: Soft, nontender, nondistended. No masses or lymphadenopathy. Urinary Catheter Management: Pugh: Cath Placed During This Visit: yes Reason for Continuing Indwelling Catheter: Accurate Measurement of Urinary Output in Critically Ill Patients Urinary Catheter Date of Insertion: 08/08/25 Urinary Catheter Time of Insertion: 16:57 Data 08/17/25 04:12 08/17/25 04:12 Micro: Microbiology 08/14/25 12:54 Catheter Tip Culture - Preliminary Other Source A&P Assessment and plan 1. Acute kidney injury superimposed on CKD: Plan: 74-year-old female status post tunneled dialysis catheter. Catheter is functional. Rest of care per hospitalist. PDMP PDMP Reviewed: Not Reviewed Attestations 2 Medical Necessity Statement*: N/A Coding Level of Care Code 69365 Diagnoses Acute kidney injury superimposed on CKD N17.9; N18.9
[2025-08-16] MEDS: pantoprazole 40 mg SDV IVP (16:47)
--- NOTE | 2025-08-16 17:03 | PM.PN ---
Subjective Subjective: Patient scheduled for PermCath insertion on the right chest and s/p HD yesterday, currently well and feels better much alert and interactive no concerns voiced by the patient Medications: Reviewed: Yes Medication Review Details: Current Medications Acetaminophen (Acetaminophen 325 Mg Tablet) 650 mg PO Q6H PRN PRN Reason: Mild/Mod Pain Or Temp >/= 101 Hydrocodone Bitart/Acetaminophen (Hydrocodone-Acetaminophen 10-325 Mg Tablet) 1 tab PO Q8H PRN PRN Reason: pain (scale score 7-10) Last Admin: 08/12/25 02:16 Dose: 1 tab Albuterol/Ipratropium (Ipratropium-Albuterol 3 Ml Neb) 3 ml INHALATION Q6H.RESP [facility] Last Admin: 08/13/25 08:26 Dose: 3 ml Aripiprazole (Aripiprazole 2 Mg Tablet) 2 mg PO DAILY [facility] Last Admin: 08/13/25 04:57 Dose: 2 mg Budesonide (Budesonide 0.5 Mg/2 Ml Neb) 0.5 mg INHALATION BID.RESPIRATORY [facility] Last Admin: 08/13/25 08:26 Dose: 0.5 mg Calcitriol (Calcitriol 0.25 Mcg Capsule) 0.25 mcg PO DAILY [facility] Last Admin: 08/13/25 04:57 Dose: 0.25 mcg Ceftriaxone Sodium (Ceftriaxone 1,000 Mg Sdv) 1,000 mg IVP Q24H [facility]; Protocol Stop: 08/14/25 14:59 Last Admin: 08/12/25 14:46 Dose: 1,000 mg Diltiazem HCl (Diltiazem 30 Mg Tablet) 60 mg PO QID [facility] Last Admin: 08/13/25 04:58 Dose: 60 mg Docusate Sodium (Docusate Sodium 100 Mg Capsule) 100 mg PO BID [facility] Last Admin: 08/13/25 04:57 Dose: 100 mg Gabapentin (Gabapentin 100 Mg Capsule) 100 mg PO DAILY [facility] Last Admin: 08/13/25 04:58 Dose: 100 mg Heparin Sodium (Porcine) (Heparin 5,000 Unit/Ml Inj 1 Ml) 5,000 unit SUBCUT Q12H [facility] Last Admin: 08/13/25 04:58 Dose: 5,000 unit Hydralazine HCl (Hydralazine 20 Mg/Ml Inj 1 Ml) 10 mg IVP Q4H PRN PRN Reason: hypertension Last Admin: 08/09/25 20:41 Dose: 10 mg Ferric Sodium Gluconate 125 mg (/ Sodium Chloride) 110 mls @ 110 mls/hr IV Q24H [facility] Stop: 08/17/25 08:29 Last Admin: 08/12/25 10:43 Dose: Not Given Lactulose (Lactulose Oral Liq 20 Gm/30 Ml Udc) 10 gm PO DAILY PRN; Protocol PRN Reason: Constipation (see protocol) Magnesium Hydroxide (Magnesium Hydroxide 30 Ml Udc) 30 ml PO DAILY PRN; Protocol PRN Reason: Constipation (see protocol) Metoprolol Tartrate (Metoprolol Tartrate 50 Mg Tablet) 50 mg PO BID [facility] Last Admin: 08/13/25 04:57 Dose: 50 mg Morphine Sulfate (Morphine 4 Mg/Ml Sdv 1 Ml) 2 mg IVP Q4H PRN PRN Reason: SEVERE PAIN Last Admin: 08/11/25 16:09 Dose: 2 mg Ondansetron HCl (Ondansetron 2 Mg/Ml Sdv 2 Ml) 4 mg IVP Q6H PRN PRN Reason: vomiting, or N/V if npo Pantoprazole Sodium (Pantoprazole 40 Mg Sdv) 40 mg IVP Q24H [facility] Last Admin: 08/12/25 17:22 Dose: 40 mg Venlafaxine HCl (Venlafaxine Er (24hr) 75 Mg Capsule) 75 mg PO DAILY [facility] Last Admin: 08/13/25 04:57 Dose: 75 mg Vitals/I&O/Wt Last Vital Signs Temp 98.3 F 08/16/25 04:30 Pulse 64 08/16/25 13:44 Resp 19 H 08/16/25 13:44 BP 143/86 08/16/25 12:00 Pulse Ox 92 08/16/25 13:44 O2 Del Method Nasal Cannula 08/16/25 13:44 O2 Flow Rate 4.5 08/16/25 13:44 08/16/25 08/16/25 08/16/25 06:59 14:59 22:59 Intake Total 355 / 1305 240 / 240 Output Total 3109 Balance 345 / -1805 240 / 240 Weight last 48 hrs Weight 69.5 kg Weight 73 kg Weight 73.139 kg Physical Exam Narrative: General: Alert and oriented, lying on the bed with oxygen supplementation through nasal cannula around 4 L. HEENT: Normocephalic, atraumatic, grossly unremarkable exam Cardio: Normal rate rhythm normal S1-S2 without any murmurs, rubs Respiratory: normal vascular breathing on auscultation without any wheezes, no stridor but having mild basal crackles but better than yesterday GI: Abdomen soft, nontender, nondistended, normoactive bowel sounds present all 4 quadrants, Neuro: intact cranial nerves motor and sensory and cerebellar/coordination function without any focal neurological deficit Behavior: Appropriate and cooperative Extremities: mild trace edema, pt having mild pallor positive, right side of the chest with PermCath insertion no hematoma or swelling Urinary Catheter Management: Pugh: Cath Placed During This Visit: yes Reason for Continuing Indwelling Catheter: Accurate Measurement of Urinary Output in Critically Ill Patients Urinary Catheter Date of Insertion: 08/08/25 Urinary Catheter Time of Insertion: 16:57 Data 08/16/25 03:44 08/16/25 03:44 Micro: Microbiology 08/14/25 12:54 Catheter Tip Culture - Preliminary Other Source A&P Assessment and plan 1. Acute kidney injury superimposed on CKD: Has CKD with a baseline creatinine in the mid 1 range, etiology of SHABANA unclear, likely ATN, awaiting serological workup, elevated free light chains but normal ratio, electrophoresis that showed hypogammaglobulinemia, awaiting immunofixation. Other serologies negative so far. Imaging reveals normal right kidney mild perinephric stranding no obstruction or left kidney severe atrophy. S/p permcath insertion and tolerating HD seems to have SHABANA on CKD but the current SHABANA is questionable? biopsy could further answer the etiology however after discussing with the nephro onboard, it may carry high risk than benefit in her case since she has solitary functioning kidney. the prefers to initiates HD, surgery onboard, and s/p PermCath placement 08/14/2025, and tolerated hemodialysis sessions Follow recommendation from nephrology, hemodialysis sessions as per Wednesday schedule monitor intake and output daily RFTs and electrolytes with correction accordingly daily wt analysis 2. Atrial fibrillation with RVR: Not a known diagnosis. Likely in the setting of sepsis. Was placed on cardizem drip. Currently stable, sometimes goes to high as 130s to 140s during hemodialysis. Resumed home medication of metoprolol and diltiazem Echo obtained and noted- EF 60 percent, moderate pulmonary hypertension, severe tricuspid regurg. pt still having HR around 100s and goes above 130s during HD session alongwith uncontrolled HTN Maintain MAP >65mmhg telemetry monitoring in case of increased HR or symptomatic tachycardia, stat EKG and trops as clinically indicated 3. Transaminitis: Likely in the setting of sepsis, currently improved Continue to monitor LFT- improving US abdomen unremarkable cont to monitor 4. Sepsis: SIRS: Tachycardic, Leukocytosis high likely pneumonia based on her cxr findings at admission with some interstitial markings and SOB? pt currently having adequate capillary refills and pulses, still mild SOB since she is ESRD and there are signs of symptoms of fluid overload that requires her to have HD given ceftriaxone with stop date of 08/14 monitor for any fever spikes or hypotension with signs of sepsis, and if present repeat cultures and consider surgery onboard for possible central line removal to avoid any CLABSI MAP maintained above 65mmhg sepsis resolved 5. Dementia: Patient with h/o dementia. Has been at home with spouse prior to current admission Supportive care wrapper caser onboard 6. Primary hypertension: intermittently uncontrolled Hydralazine 50 mg 3 times daily cont metoprolol 50mg bid for at fib and also contributes to BP control and diltiazem 60 qid for at fib and also contributes to BP control (IT IS IMPORTANT TO SPACE OUT MEDICATIONS TO AVOID HYPOTENSION DURING HD, IF THE PATIENT IS HAVING FREQUENT LOW BP READINGS THEN TO ADJUST THE DOSE OF ANTI HTN OR BP LOWERING MEDS) 7. Thrombocytopenia: heparin held, on SCDs, platelets stable and improved vit b12 levels adequate possible progressive renal disease? medications reviewed cont to monitor cbc and platelets and also monitor for any obvious source of bleeding HIT studies for diagnostic purpose Plan: Plan- patient's spouse finalised to go for HD and rehab placement for her, nephrology on board, to follow-up with the embedded case manager as well for arrangement VTE: SCDs, pt having throbocytopenia Discussed with care team members. PDMP PDMP Reviewed: Not Reviewed Attestations Medical Necessity Statement*: Patient will stay overnight for arrangement of postdischarge rehab by the case management and also inpatient management of her end-stage renal disease requiring dialysis and further nephrology plan of care Time Spent in Patient Care: 16 - 35 minutes (>than 50% of time spent in counselling and/or direct pt care on unit). Other Attestations: Patient condition has been discussed at length with the patient/family, I have independently reviewed the chart labs imaging/diagnostics/EKG. the goals of care and code status with the patient/family/NOK/legal scheduling representative, and documented accordingly. I have reconciled the medications after confirmation/comorbidities/current clinical condition. The management has been done according to the current clinical condition with respect to patient goals of care and based on recommendations/guidelines. The patient/family has been informed about the current condition and further plan of care. Agreed with the plan of care and understood without any language barrier. Every effort was made to ensure accuracy of weatherseal technician. Any obvious errors or omissions should be clarified with the author of the document. Coding Level of Care Code 74271 Diagnoses Acute kidney injury superimposed on CKD N17.9; N18.9 Atrial fibrillation with RVR I48.91 Transaminitis R74.01 Sepsis A41.9 Sepsis type: sepsis due to unspecified organism Sepsis acute organ dysfunction status: with acute organ dysfunction Severe sepsis shock status: without septic shock Dementia F03.90 Primary hypertension I10 Hypertension type: primary hypertension Thrombocytopenia D69.6
--- NOTE | 2025-08-16 18:38 | PC.NURSE ---
Report was given ALEJANDRO Baig in [facility]. Patient was stable during transfer.
[2025-08-16 20:34] LABS: ALPHA 1 GLOBULIN 0.4 g/dL (0.2-0.3); ALPHA 2 GLOBULIN 0.6 g/dL (0.5-0.9); BETA 1 GLOBULIN 0.3 g/dL (0.4-0.6)
[2025-08-17] VITALS (11 sets, daily range): BP systolic 114–148; BP diastolic 62–100; PULSE 69–94; RESP 14–24; TEMP 36.3–37; O2SAT 92–96
[2025-08-17 04:49] LABS: Hematocrit 31.1 % (36-47); Hemoglobin 9.40 g/dL (11.27-16.99); Mean Corpuscular HGB Conc 30.2 g/dL (30-55); Mean Corpuscular Hemoglobin 28.7 pg (27-33); Mean Corpuscular Volume 94.8 fl (85-98); Nucleated Red Blood Cells % 0 %; Platelet Count 169 10^3/cmm (157-399); Red Blood Count 3.28 10^6/uL (3.85-5.65); White Blood Count 12.57 10^3/uL (3.29-11.43)
[2025-08-17 05:12] LABS: Alanine Aminotransferase < 5 U/L (0-33); Albumin Level 3.2 g/dL (3.5-5.2); Alkaline Phosphatase 245 U/L (35-105); Aspartate Amino Transferase 23 U/L (0-32); Blood Urea Nitrogen 51 mg/dL (8-23); Calcium 9.3 mg/dL (8.5-10.5); Carbon Dioxide 19 mmol/L (22-29); Chloride 92 mmol/L (98-107); Globulin 1.9 g/dL (1.3-4.6); Glucose 85 mg/dL (65-115); Osmolality Calculated 283 mOsm/kg (285-295); Sodium 130 mmol/L (136-145); Total Protein 5.1 g/dL (6.6-8.7)
[2025-08-17 05:21] LABS: Anion Gap 23.6 (5-19); Potassium 4.6 mmol/L (3.5-5.1)
[2025-08-17] MEDS: venlafaxine ER (24HR) 75 mg Capsule PO (06:12)
[2025-08-17] MEDS: ferric gluconate 125 MG in sodium chloride 0.9% (100 ml) 100 ML 110 MG IV (08:19)
--- NOTE | 2025-08-17 08:23 | PC.SOCIAL ---
IMM Updated Updated pt & her on IMM. No questions voiced. Provided pt a copy. Initialed, dated, & timed copy in chart.
--- NOTE | 2025-08-17 10:24 | PM.PN ---
Subjective Subjective: no new c/o Medications: Reviewed: Yes Vitals/I&O/Wt Last Vital Signs Temp 97.8 F 08/17/25 07:59 Pulse 89 08/17/25 08:00 Resp 18 08/17/25 08:00 BP 125/62 08/17/25 07:59 Pulse Ox 94 08/17/25 08:00 O2 Del Method Nasal Cannula 08/17/25 08:00 O2 Flow Rate 3.5 08/17/25 08:00 08/16/25 08/17/25 08/17/25 22:59 06:59 14:59 Intake Total 240 / 480 110 / 590 230 / 230 Output Total 0 / 0 0 / 0 Balance 240 / 480 110 / 590 230 / 230 Weight last 48 hrs Weight 74.4 kg Weight 69.5 kg Weight 73 kg Physical Exam Narrative: Vital signs noted. Patient comfortable in bed no apparent distress. using nasal cannula oxygen. HEENT normocephalic atraumatic. Neck is supple lungs have crackles heart is irregular irregular, positive S1-S2. Abdomen is soft nontender nondistended positive bowel sounds extremities trace edema. Urinary Catheter Management: Pugh: Cath Placed During This Visit: yes Reason for Continuing Indwelling Catheter: Accurate Measurement of Urinary Output in Critically Ill Patients Urinary Catheter Date of Insertion: 08/08/25 Urinary Catheter Time of Insertion: 16:57 Data 08/17/25 04:12 08/17/25 04:12 Micro: Microbiology 08/14/25 12:54 Catheter Tip Culture - Preliminary Other Source A&P Assessment and plan 1. Acute kidney injury superimposed on CKD: 74-year-old lady with depression atrophic left kidney CKD stage III baseline creatinine 1.8 mg/dL hypertension hyperlipidemia. Patient is here now with weakness and confusion and falls. 1. 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 Other serologies negative so far. Imaging reveals normal right kidney mild perinephric stranding no obstruction or left kidney severe atrophy. - Urinalysis is red slightly cloudy, She had 0-4 red cells 5-10 white cells 3-4 squamous epithelial cells - Patient was initiated on dialysis via temporary catheter and switched to permacath - HD per MWF schedule , no renal recovery so far. -senior account manager to set up out pt hD chair - Biopsy was discussed but due to solitary functioning kidney, would not recommend biopsy at this time without a strong indication. 2. Anemia:, Monitor, 3. Metabolic acidosis: Improved monitor Patient evaluated using audiovisual cart. Time spent 40 minutes. PDMP PDMP Reviewed: Not Reviewed Attestations Medical Necessity Statement*: per [facility] Coding Level of Care Code Acute Code for Chg Fwd Diagnoses Acute kidney injury superimposed on CKD N17.9; N18.9
--- NOTE | 2025-08-17 11:45 | PC.NURSE ---
to hemodialysis unit foe dialysis session today. taken to [facility] floor via bed.
--- NOTE | 2025-08-17 13:14 | P.PN_ITS ---
Subjective 2 Subjective: No acute events overnight Vitals/I&O/Wt Last Vital Signs Temp 97.8 F 08/17/25 07:59 Pulse 89 08/17/25 08:00 Resp 18 08/17/25 08:00 BP 125/62 08/17/25 07:59 Pulse Ox 94 08/17/25 08:00 O2 Del Method Nasal Cannula 08/17/25 08:00 O2 Flow Rate 3.5 08/17/25 08:00 08/16/25 08/17/25 08/17/25 22:59 06:59 14:59 Intake Total 240 / 480 110 / 590 230 / 230 Output Total 0 / 0 0 / 0 Balance 240 / 480 110 / 590 230 / 230 Weight last 48 hrs Weight 164 lb 0.383 oz Weight 153 lb 3.54 oz Weight 160 lb 14.999 oz Physical Exam 2 Narrative: Chest: Unlabored breathing nasal cannula. No lymphadenopathy. Tunneled dialysis catheter functional Heart: Regular rate and rhythm. Abdomen: Soft, nontender, nondistended. No masses or lymphadenopathy. Urinary Catheter Management: Pugh: Cath Placed During This Visit: yes Reason for Continuing Indwelling Catheter: Accurate Measurement of Urinary Output in Critically Ill Patients Urinary Catheter Date of Insertion: 08/08/25 Urinary Catheter Time of Insertion: 16:57 Data 08/17/25 04:12 08/17/25 04:12 Micro: Microbiology 08/14/25 12:54 Catheter Tip Culture - Preliminary Other Source A&P Assessment and plan 1. Acute kidney injury superimposed on CKD: Plan: 74-year-old female status post tunneled dialysis catheter insertion. Catheter is functional. Routine cultures from tip of catheter growing Staph aureus which is a known skin contaminant. Discussed with hospitalist who agrees with this. No need to treat with antibiotics. Rest of care per hospitalist. PDMP PDMP Reviewed: Not Reviewed Attestations 2 Medical Necessity Statement*: N/A Coding Level of Care Code 23588 Diagnoses Acute kidney injury superimposed on CKD N17.9; N18.9
--- NOTE | 2025-08-17 14:34 | PC.NURSE ---
[facility] and cancelled pt's new Rx due to pt going to [facility] was informed and she will preint pt's discharge meds to [facility] today.
[2025-08-17] MEDS: heparin, porcine 1,000 unit/mL INJ 10 mL 10000 UNIT INTRACATH (14:49)
[2025-08-17] MEDS: heparin, porcine 1,000 unit/mL INJ 10 mL 1000 UNIT IV (14:49)
[2025-08-17] MEDS: pantoprazole 40 mg SDV IVP (15:09)
--- NOTE | 2025-08-17 16:41 | PM.PN ---
Subjective Subjective: the patient seen in the morning,alert and awake Oxygen supplementation titrated down from 4 L to 2 L and the patient tolerated and oxygen sats were above 95%. Mild wheezes however patient able to speak in full sentences and no acute concerns voiced Medications: Reviewed: Yes Medication Review Details: Current Medications Acetaminophen (Acetaminophen 325 Mg Tablet) 650 mg PO Q6H PRN PRN Reason: Mild/Mod Pain Or Temp >/= 101 Hydrocodone Bitart/Acetaminophen (Hydrocodone-Acetaminophen 10-325 Mg Tablet) 1 tab PO Q8H PRN PRN Reason: pain (scale score 7-10) Last Admin: 08/12/25 02:16 Dose: 1 tab Albuterol/Ipratropium (Ipratropium-Albuterol 3 Ml Neb) 3 ml INHALATION Q6H.RESP [facility] Last Admin: 08/13/25 08:26 Dose: 3 ml Aripiprazole (Aripiprazole 2 Mg Tablet) 2 mg PO DAILY [facility] Last Admin: 08/13/25 04:57 Dose: 2 mg Budesonide (Budesonide 0.5 Mg/2 Ml Neb) 0.5 mg INHALATION BID.RESPIRATORY [facility] Last Admin: 08/13/25 08:26 Dose: 0.5 mg Calcitriol (Calcitriol 0.25 Mcg Capsule) 0.25 mcg PO DAILY [facility] Last Admin: 08/13/25 04:57 Dose: 0.25 mcg Ceftriaxone Sodium (Ceftriaxone 1,000 Mg Sdv) 1,000 mg IVP Q24H [facility]; Protocol Stop: 08/14/25 14:59 Last Admin: 08/12/25 14:46 Dose: 1,000 mg Diltiazem HCl (Diltiazem 30 Mg Tablet) 60 mg PO QID [facility] Last Admin: 08/13/25 04:58 Dose: 60 mg Docusate Sodium (Docusate Sodium 100 Mg Capsule) 100 mg PO BID [facility] Last Admin: 08/13/25 04:57 Dose: 100 mg Gabapentin (Gabapentin 100 Mg Capsule) 100 mg PO DAILY [facility] Last Admin: 08/13/25 04:58 Dose: 100 mg Heparin Sodium (Porcine) (Heparin 5,000 Unit/Ml Inj 1 Ml) 5,000 unit SUBCUT Q12H [facility] Last Admin: 08/13/25 04:58 Dose: 5,000 unit Hydralazine HCl (Hydralazine 20 Mg/Ml Inj 1 Ml) 10 mg IVP Q4H PRN PRN Reason: hypertension Last Admin: 08/09/25 20:41 Dose: 10 mg Ferric Sodium Gluconate 125 mg (/ Sodium Chloride) 110 mls @ 110 mls/hr IV Q24H [facility] Stop: 08/17/25 08:29 Last Admin: 08/12/25 10:43 Dose: Not Given Lactulose (Lactulose Oral Liq 20 Gm/30 Ml Udc) 10 gm PO DAILY PRN; Protocol PRN Reason: Constipation (see protocol) Magnesium Hydroxide (Magnesium Hydroxide 30 Ml Udc) 30 ml PO DAILY PRN; Protocol PRN Reason: Constipation (see protocol) Metoprolol Tartrate (Metoprolol Tartrate 50 Mg Tablet) 50 mg PO BID [facility] Last Admin: 08/13/25 04:57 Dose: 50 mg Morphine Sulfate (Morphine 4 Mg/Ml Sdv 1 Ml) 2 mg IVP Q4H PRN PRN Reason: SEVERE PAIN Last Admin: 08/11/25 16:09 Dose: 2 mg Ondansetron HCl (Ondansetron 2 Mg/Ml Sdv 2 Ml) 4 mg IVP Q6H PRN PRN Reason: vomiting, or N/V if npo Pantoprazole Sodium (Pantoprazole 40 Mg Sdv) 40 mg IVP Q24H [facility] Last Admin: 08/12/25 17:22 Dose: 40 mg Venlafaxine HCl (Venlafaxine Er (24hr) 75 Mg Capsule) 75 mg PO DAILY [facility] Last Admin: 08/13/25 04:57 Dose: 75 mg Vitals/I&O/Wt Last Vital Signs Temp 97.7 F 08/17/25 16:00 Pulse 91 08/17/25 16:00 Resp 16 08/17/25 16:00 BP 117/74 08/17/25 16:00 Pulse Ox 95 08/17/25 14:00 O2 Del Method Nasal Cannula 08/17/25 14:00 O2 Flow Rate 3 08/17/25 14:00 08/17/25 08/17/25 08/17/25 06:59 14:59 22:59 Intake Total 110 / 590 230 / 230 500 / 730 Output Total 0 / 0 3007 / 3007 Balance 110 / 590 230 / 230 -2507 / -2277 Weight last 48 hrs Weight 72.5 kg Weight 74.4 kg Weight 69.5 kg Physical Exam Narrative: General: Alert and oriented, lying on the bed with oxygen supplementation through nasal cannula around 2L. HEENT: Normocephalic, atraumatic, grossly unremarkable exam Cardio: Normal rate rhythm normal S1-S2 without any murmurs, rubs Respiratory: normal vascular breathing on auscultation with mild wheezes without any bibasal crepitus, patient able to speak in full sentences GI: Abdomen soft, nontender, nondistended, normoactive bowel sounds present all 4 quadrants, Neuro: intact cranial nerves motor and sensory and cerebellar/coordination function without any focal neurological deficit Behavior: Appropriate and cooperative Extremities: mild trace edema, pt having mild pallor positive, right side of the chest with PermCath insertion no hematoma or swelling Urinary Catheter Management: Pugh: Cath Placed During This Visit: yes Reason for Continuing Indwelling Catheter: Accurate Measurement of Urinary Output in Critically Ill Patients Urinary Catheter Date of Insertion: 08/08/25 Urinary Catheter Time of Insertion: 16:57 Data 08/17/25 04:12 08/17/25 04:12 Micro: Microbiology 08/17/25 16:12 Blood Culture - Preliminary Blood SPECIMEN COLLECTED 08/17/25 16:14 Blood Culture - Preliminary Blood SPECIMEN COLLECTED 08/14/25 12:54 Catheter Tip Culture - Final Other Source Staphylococcus epidermidis A&P Assessment and plan 1. Acute kidney injury superimposed on CKD: Has CKD with a baseline creatinine in the mid 1 range, etiology of SHABANA unclear, likely ATN, awaiting serological workup, elevated free light chains but normal ratio, electrophoresis that showed hypogammaglobulinemia, awaiting immunofixation. Other serologies negative so far. Imaging reveals normal right kidney mild perinephric stranding no obstruction or left kidney severe atrophy. S/p permcath insertion and tolerating HD seems to have SHABANA on CKD but the current SHABANA is questionable? biopsy could further answer the etiology however after discussing with the nephro onboard, it may carry high risk than benefit in her case since she has solitary functioning kidney. the prefers to initiates HD, surgery onboard, and s/p PermCath placement 08/14/2025, and tolerated hemodialysis sessions Follow recommendation from nephrology, hemodialysis sessions as per Wednesday schedule monitor intake and output daily RFTs and electrolytes with correction accordingly daily wt analysis for likely discharge to [place] at [facility] 2. Atrial fibrillation with RVR: Not a known diagnosis. Likely in the setting of sepsis. Was placed on cardizem drip. Continue metoprolol 25 mg twice daily and diltiazem 90 mg 4 times daily Echo obtained and noted- EF 60 percent, moderate pulmonary hypertension, severe tricuspid regurg.. Maintain MAP >65mmhg telemetry monitoring. 3. Transaminitis: Likely in the setting of sepsis, currently improved Continue to monitor LFT- improving US abdomen unremarkable cont to monitor 4. Sepsis: SIRS: Tachycardic, Leukocytosis high likely pneumonia based on her cxr findings at admission with some interstitial markings and SOB? pt currently having adequate capillary refills and pulses, still mild SOB since she is ESRD and there are signs of symptoms of fluid overload that requires her to have HD given ceftriaxone with stop date of 08/14 monitor for any fever spikes or hypotension with signs of sepsis, currently stable Patient central line already removed and tunneled PermCath placed for hemodialysis Central line tip showed Staph epidermidis which is skin contaminant and patient signs and symptoms does not correlate with sepsis or CLABSI, therefore no indication for antibiotics or further workup is required. Continue to monitor.. Already discussed with the surgeon on board MAP maintained above 65mmhg sepsis resolved 5. Dementia: Patient with h/o dementia. Has been at home with spouse prior to current admission Supportive care vocational case manager onboard 6. Primary hypertension: intermittently uncontrolled Hydralazine 50 mg 3 times daily Metoprolol dose reduced to 25 mg twice daily since the patient had mild bradycardia in the last 24 hours as per the assigned nurse and diltiazem 60 qid for at fib to continue which can also contribute to lowering her blood pressure (IT IS IMPORTANT TO SPACE OUT MEDICATIONS TO AVOID HYPOTENSION DURING HD, IF THE PATIENT IS HAVING FREQUENT LOW BP READINGS THEN TO ADJUST THE DOSE OF ANTI HTN OR BP LOWERING MEDS) 7. Thrombocytopenia: heparin held, on SCDs, platelets stable and improved vit b12 levels adequate possible progressive renal disease? medications reviewed cont to monitor cbc and platelets and also monitor for any obvious source of bleeding HIT studies negative therefore the the platelets likely drop secondary to acute stress and overlying end-stage renal disease that required hemodialysis 8. COPD (chronic obstructive pulmonary disease): Daily scheduled nebulization with albuterol, ipratropium and budesonide Pulse ox monitoring and monitor hemodynamics Plan: Plan- patient's spouse finalised to go for HD and rehab placement for her, nephrology on board, to follow-up with the outpatient case manager as well for arrangement VTE: SCDs, pt having throbocytopenia Discussed with care team members. PDMP PDMP Reviewed: Not Reviewed Attestations Medical Necessity Statement*: Patient will stay overnight for arrangement of discharge and safe disposition tomorrow to after hemodialysis as per the vocational case managercontinuous improvement manager Level of Care Code 48163 Diagnoses Acute kidney injury superimposed on CKD N17.9; N18.9 Atrial fibrillation with RVR I48.91 Transaminitis R74.01 Sepsis A41.9 Sepsis acute organ dysfunction status: with acute organ dysfunction Sepsis type: sepsis due to unspecified organism Severe sepsis shock status: without septic shock Dementia F03.90 Primary hypertension I10 Hypertension type: primary hypertension Thrombocytopenia D69.6 COPD (chronic obstructive pulmonary disease) J44.9
[2025-08-18] VITALS (10 sets, daily range): BP systolic 117–140; BP diastolic 72–77; PULSE 73–90; RESP 16–24; TEMP 36.8–37; O2SAT 90–95
[2025-08-18 03:26] LABS: Hematocrit 29.9 % (36-47); Hemoglobin 9.30 g/dL (11.27-16.99); Mean Corpuscular HGB Conc 31.1 g/dL (30-55); Mean Corpuscular Hemoglobin 28.7 pg (27-33); Mean Corpuscular Volume 92.3 fl (85-98); Nucleated Red Blood Cells % 0 %; Platelet Count 153 10^3/cmm (157-399); Red Blood Count 3.24 10^6/uL (3.85-5.65); White Blood Count 9.55 10^3/uL (3.29-11.43)
[2025-08-18 03:48] LABS: Alanine Aminotransferase < 5 U/L (0-33); Albumin Level 2.9 g/dL (3.5-5.2); Alkaline Phosphatase 268 U/L (35-105); Aspartate Amino Transferase 30 U/L (0-32); Blood Urea Nitrogen 29 mg/dL (8-23); Calcium 9.1 mg/dL (8.5-10.5); Carbon Dioxide 23 mmol/L (22-29); Chloride 94 mmol/L (98-107); Globulin 2.1 g/dL (1.3-4.6); Glucose 87 mg/dL (65-115); Osmolality Calculated 281 mOsm/kg (285-295); Sodium 133 mmol/L (136-145); Total Protein 5.0 g/dL (6.6-8.7)
[2025-08-18 03:49] LABS: Anion Gap 19.8 (5-19); Potassium 3.8 mmol/L (3.5-5.1)
[2025-08-18] MEDS: venlafaxine ER (24HR) 75 mg Capsule PO (06:30)
--- NOTE | 2025-08-18 09:39 | P.PN_ITS ---
Subjective 2 Subjective: No acute events overnight Vitals/I&O/Wt Last Vital Signs Temp 98.4 F 08/18/25 08:00 Pulse 83 08/18/25 08:47 Resp 16 08/18/25 08:47 BP 140/72 08/18/25 08:00 Pulse Ox 91 08/18/25 08:47 O2 Del Method Nasal Cannula 08/18/25 08:47 O2 Flow Rate 2 08/18/25 08:47 08/17/25 08/18/25 08/18/25 22:59 06:59 14:59 Intake Total 500 / 730 0 / 730 240 / 240 Output Total 3007 / 3007 0 / 3007 Balance -2507 / -2277 0 / -2277 240 / 240 Weight last 48 hrs Weight 158 lb 4.8 oz Weight 159 lb 13.362 oz Weight 164 lb 0.383 oz Physical Exam 2 Narrative: Chest: Unlabored breathing room air. Tunneled dialysis catheter functional. Heart: Regular rate and rhythm. Abdomen: Soft, nontender, nondistended. No masses or lymphadenopathy. Urinary Catheter Management: Pugh: Cath Placed During This Visit: yes Reason for Continuing Indwelling Catheter: Acute Urinary Retention or Obstruction Urinary Catheter Date of Insertion: 08/08/25 Urinary Catheter Time of Insertion: 16:57 Data 08/18/25 02:57 08/18/25 02:57 Micro: Microbiology 08/17/25 16:12 Blood Culture - Preliminary Blood SPECIMEN COLLECTED 08/17/25 16:14 Blood Culture - Preliminary Blood SPECIMEN COLLECTED 08/14/25 12:54 Catheter Tip Culture - Final Other Source Staphylococcus epidermidis A&P Assessment and plan 1. Acute kidney injury superimposed on CKD: Plan: 74-year-old female with acute on chronic kidney disease. Tunneled dialysis catheter inserted and functional. Rest of care per hospitalist. Follow-up with nephrology. PDMP PDMP Reviewed: Not Reviewed Attestations 2 Medical Necessity Statement*: N/A Coding Level of Care Code 09426 Diagnoses Acute kidney injury superimposed on CKD N17.9; N18.9
--- NOTE | 2025-08-18 09:45 | P.PN_ITS ---
Subjective 2 Subjective: no new complaints Medications: Reviewed: Yes Vitals/I&O/Wt Last Vital Signs Temp 98.4 F 08/18/25 08:00 Pulse 83 08/18/25 08:47 Resp 16 08/18/25 08:47 BP 140/72 08/18/25 08:00 Pulse Ox 91 08/18/25 08:47 O2 Del Method Nasal Cannula 08/18/25 08:47 O2 Flow Rate 2 08/18/25 08:47 08/17/25 08/18/25 08/18/25 22:59 06:59 14:59 Intake Total 500 / 730 0 / 730 240 / 240 Output Total 3007 / 3007 0 / 3007 Balance -2507 / -2277 0 / -2277 240 / 240 Weight last 48 hrs Weight 71.804 kg Weight 72.5 kg Weight 74.4 kg Physical Exam 2 Narrative: Vital signs noted. Patient comfortable in bed no apparent distress. using nasal cannula oxygen. HEENT normocephalic atraumatic. Neck is supple lungs have crackles heart is irregular irregular, positive S1-S2. Abdomen is soft nontender nondistended positive bowel sounds extremities trace edema. Urinary Catheter Management: Pugh: Cath Placed During This Visit: yes Reason for Continuing Indwelling Catheter: Acute Urinary Retention or Obstruction Urinary Catheter Date of Insertion: 08/08/25 Urinary Catheter Time of Insertion: 16:57 Data 08/18/25 02:57 08/18/25 02:57 Micro: Microbiology 08/17/25 16:12 Blood Culture - Preliminary Blood SPECIMEN COLLECTED 08/17/25 16:14 Blood Culture - Preliminary Blood SPECIMEN COLLECTED 08/14/25 12:54 Catheter Tip Culture - Final Other Source Staphylococcus epidermidis A&P Assessment and plan 1. Acute kidney injury superimposed on CKD: 74-year-old lady with depression atrophic left kidney CKD stage III baseline creatinine 1.8 mg/dL hypertension hyperlipidemia. Patient is here now with weakness and confusion and falls. 1. 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 Other serologies negative so far. Imaging reveals normal right kidney mild perinephric stranding no obstruction or left kidney severe atrophy. - Urinalysis is red slightly cloudy, She had 0-4 red cells 5-10 white cells 3- 4 squamous epithelial cells - Patient was initiated on dialysis via temporary catheter and switched to permacath - HD per MWF schedule , no renal recovery so far. -client hr manager to set up out pt hD chair - Biopsy was discussed but due to solitary functioning kidney, would not recommend biopsy at this time without a strong indication. 2. Anemia:, Monitor, 3. Metabolic acidosis: Improved monitor Patient evaluated using audiovisual cart. Time spent 40 minutes. PDMP PDMP Reviewed: Not Reviewed Attestations 2 Medical Necessity Statement*: per [facility] Coding Level of Care Code Acute Code for Chg Fwd Diagnoses Acute kidney injury superimposed on CKD N17.9; N18.9
--- NOTE | 2025-08-18 14:09 | PM.DCS ---
Discharge Providers Date of Admission: 08/08/25 15:42 Date of Discharge: August 18, 2025 Attending Provider at Admission: Javad Jones MD Attending Provider at Discharge: Geovanny Gonzales MD Primary Care Provider: Marizol Rivera MD Diagnoses at Discharge Discharge Diagnosis 1. Acute kidney injury superimposed on CKD: Reason for Visit Reason for Visit: AMS, Fall Brief History: As per the previous admitting physician note: Karina Estes is a 74 year old female with past medical history of dementia, hypertension, Chronic back pain was brought into the ER today by her because of worsening mentation over the last 1 month. But worse over the last 2 to 3 days. As per the patient's oral intake have decreased over the last 2 to 3 days, she is not getting out of bed since today morning hence he brought her to the ER. Patient to him have not complained of any nausea, vomiting, headache, dizziness. He does state he was given an antibiotic by the PCP for some kind of an infection possibly UTI. In the ER she was found to have a white count 21,000, potassium of 7 1, creatinine of 14.8 with a BUN of 93 with a lactic acid of 7.7. Hospital Course Hospital Course Patient admitted as a case of acute kidney injury on the top of CKD. Also having atrial fibrillation and was placed on Cardizem drip and resumption of her home dose of metoprolol. Echo was done and showed left atrial size enlargement. EF was 60%. For detailed report refer to the echo studies. Patient had objective parameters meeting for sepsis possible source pneumonia as per the retrospective note and received antibiotics accordingly which later on resolved her sepsis. After management of sepsis, her capillary refill and pulses were adequate and well-perfused. During her hospital stay the patient was stabilized. Nephrology was consulted and given the risk and benefits of management of SHABANA on CKD with signs of altered mentation and also fluid overload, decision of hemodialysis was made. Initially biopsy was also being considered however since the patient had only 1 single working kidney therefore as per the nephrology it carries more high risk of taking the biopsy and to know the etiology and the family was made aware about this therefore hemodialysis catheter was inserted and hemodialysis started without any complications. Her hemodialysis catheter tip showed Staph epidermidis which was more of contamination since her blood cultures were negative and there was no signs and symptoms of CLABSI. The patient tolerated hemodialysis well. She was also having hypertension during her hospital stay which was managed with medications. She had transaminitis which was most likely related to sepsis and resolved. Thrombocytopenia was also there and vitamin B12's were normal. Heparin was held and HIT studies were negative. The platelets stabilized. For her atrial fibrillation she was managed with rate control medications with diltiazem and metoprolol. Apixaban 2.5 mg twice daily was started considering patient has thrombocytopenia also carries a fall risk and on hemodialysis. All her medications were reconciled and comorbidities and acute condition managed as per the recommendation and guidelines. Patient further disposition was discussed with the and based on patient condition and need of hemodialysis patient discharged to [facility]. Medications were reconciled after confirmation and according to patient comorbidities and appropriate follow-ups and referrals were provided at the time of discharge. Patient condition has been discussed at length with the patient/family, I have independently reviewed the chart labs imaging/diagnostics/EKG. the goals of care and code status with the patient/family/NOK/legal premium service representative, and documented accordingly. The management has been done according to the current clinical condition with respect to patient goals of care and based on recommendations/guidelines. The patient/family has been informed about the current condition and further plan of care. Agreed with the plan of care and understood without any language barrier. Every effort was made to ensure accuracy of gravel weigher. Any obvious errors or omissions should be clarified with the author of the document. Physical Exam Narrative: General: Alert and oriented, lying on the bed with oxygen supplementation through nasal cannula around 2L. HEENT: Normocephalic, atraumatic, grossly unremarkable exam Cardio: Normal rate rhythm normal S1-S2 without any murmurs, rubs Respiratory: normal vascular breathing on auscultation with without any wheezes or any crepitus, patient able to speak in full sentences GI: Abdomen soft, nontender, nondistended, normoactive bowel sounds present all 4 quadrants, Neuro: intact cranial nerves motor and sensory and cerebellar/coordination function without any focal neurological deficit Behavior: Appropriate and cooperative Extremities: mild trace edema, pt having mild pallor positive, right side of the chest with PermCath insertion no hematoma or swelling Urinary Catheter Management: Pugh: Cath Placed During This Visit: yes Reason for Continuing Indwelling Catheter: Acute Urinary Retention or Obstruction Urinary Catheter Date of Insertion: 08/08/25 Urinary Catheter Time of Insertion: 16:57 Discharge Data Studies Completed and Pending Completed Studies During Hospitalization Category Date Time Status CT cervical spin wo con* [id number] Stat Cat Scan 08/08/25 12:[address] head wo con* [id number] Stat Cat Scan 08/08/25 14:[address] kidney stone [id number] Stat Cat Scan 08/08/25 13:41 Completed XR chest 1V portable [id number] Stat Exams 08/08/25 12:07 Completed XR chest 1V portable [id number] Stat Exams 08/08/25 20:12 Completed XR chest 1V portable [id number] Stat Exams 08/09/25 05:35 Completed CV. echo complete* [id number] Routine Ultrasound 08/09/25 14:52 [place] liver [id number] Routine Ultrasound 08/09/25 12:40 Completed Pending at discharge Category Date Time Status Blood Culture Stat Lab 08/17/25 16:12 Results Radiology Impressions Cervical Spine CT 08/08/25 12:50 IMPRESSION: 1. No acute cervical spine fracture. 2. Anterior cervical fusion with interbody spacer at C5-6 is intact. 3. Moderate bilateral foraminal stenosis at C6 6 7 and mild on the LEFT at C4-5. Abdomen/Pelvis CT 08/08/25 13:41 IMPRESSION: 1. Small bilateral pleural effusions. 2. Cardiomegaly. 3. Perinephric stranding around each kidney. No renal obstruction. Correlate for possible urinary tract infection. 4. Severe atrophy LEFT kidney. 5. Small amount of free fluid in the pelvis. 6. No evidence for colitis. No GI tract obstruction. Head CT 08/08/25 14:11 IMPRESSION: No acute intracranial hemorrhage or mass effect. Chest X-Ray 08/09/25 05:35 IMPRESSION: Improving aeration at the lung bases. Liver Ultrasound 08/09/25 12:40 IMPRESSION: No acute findings within limitations of the study. C-Arm Fluoroscopy 08/14/25 13:10 IMPRESSION: Images obtained for intraoperative purposes. Laboratory Results WBC 9.55 10^3/uL (3.29-11.43) 08/18/25 02:57 RBC 3.24 10^6/uL (3.85-5.65) L 08/18/25 02:57 Hgb 9.30 g/dL (11.27-16.99) L 08/18/25 02:57 Hct 29.9 % (36-47) L 08/18/25 02:57 MCV 92.3 fl (85-98) 08/18/25 02:57 MCH 28.7 pg (27-33) 08/18/25 02:57 MCHC 31.1 g/dL (30-55) 08/18/25 02:57 RDW 18.5 % (12.1-15.1) H 08/18/25 02:57 Plt Count 153 10^3/cmm (157-399) L 08/18/25 02:57 MPV 10.8 fL (7.4-10.4) H 08/18/25 02:57 Neut % (Auto) 71.8 % 08/18/25 02:57 Lymph % (Auto) 13.2 % 08/18/25 02:57 Robertson % (Auto) 12.7 % 08/18/25 02:57 Eos % (Auto) 1.2 % 08/18/25 02:57 Baso % (Auto) 0.3 % 08/18/25 02:57 Reticulocyte % (Auto) 4.1 % (0.5-2.0) H 08/09/25 06:18 Neut # (Auto) 6.86 10^3/uL (1.8-7.7) 08/18/25 02:57 Lymph # (Auto) 1.3 10^3/uL (0.8-4.8) 08/18/25 02:57 Robertson # (Auto) 1.2 10^3/uL (0.2-0.9) H 08/18/25 02:57 Eos # (Auto) 0.1 10^3/uL (0.0-0.8) 08/18/25 02:57 Baso # (Auto) 0.0 10^3/uL (0.0-0.1) 08/18/25 02:57 Nucleated RBC % (auto) 0 % 08/18/25 02:57 Nucleated RBCs # 0.0 /100WBC 08/18/25 02:57 Haptoglobin 162.0 mg/L (30-200) 08/09/25 06:18 Heparin Require Pat 0.085 OD UNITS 08/14/25 05:52 Specimen Type Arterial 08/09/25 09:05 Sample Site Radial, right 08/09/25 09:05 O2 Sat Pulse Oximetry Cancelled 08/09/25 04:10 ABG pH 7.43 (7.35-7.45) 08/09/25 09:05 ABG pCO2 34.4 mmHg (35-45) L 08/09/25 09:05 ABG pO2 62.8 mmHg (80.0-100.0) L 08/09/25 09:05 ABG PO2/FiO2 Ratio 196 08/09/25 09:05 ABG HCO3 22.6 mmol/L (22-26) 08/09/25 09:05 ABG O2 Saturation 90.8 08/09/25 09:05 ABG Base Excess -1.5 mmol/L (-2.0-2.0) 08/09/25 09:05 Justin Test Pos 08/09/25 09:05 VBG pH Cancelled 08/09/25 04:10 VBG pCO2 Cancelled 08/09/25 04:10 VBG pO2 Cancelled 08/09/25 04:10 VBG HCO3 Cancelled 08/09/25 04:10 VBG Base Excess Cancelled 08/09/25 04:10 VBG Hematocrit Cancelled 08/09/25 04:10 A-a O2 Gradient 15.9 mmHg (5-10) H 08/09/25 09:05 Hematocrit 30.0 % (37-47) L 08/09/25 09:05 Hgb O2 Saturation 89.1 % (95-100) L 08/09/25 09:05 Carboxyhemoglobin 1.6 %THgb (0.4-20.1) 08/09/25 09:05 Methemoglobin 0.2 % (0.4-1.5) L 08/09/25 09:05 Total Hemoglobin 9.8 g/dL (12-16) L 08/09/25 09:05 Sodium 141.0 mmol/L (131-143) 08/09/25 09:05 Potassium 3.8 mmol/L (3.5-5.0) 08/09/25 09:05 Glucose 93.0 mg/dL (70-115) 08/09/25 09:05 Ionized Calcium 1.0 mmol/L (1.1-1.4) L 08/09/25 09:05 Respiration Rate Cancelled 08/09/25 04:10 O2 Delivery Device Nc 08/09/25 09:05 O2 Liters/Min 3.0 % 08/09/25 09:05 SIMV Cancelled 08/09/25 04:10 Vent Mode Cancelled 08/09/25 04:10 Mechanical Rate Cancelled 08/09/25 04:10 Spontaneous Rate Cancelled 08/09/25 04:10 FiO2 32.0 % 08/09/25 09:05 Tidal Volume Cancelled 08/09/25 04:10 PEEP Cancelled 08/09/25 04:10 Pressure Support Cancelled 08/09/25 04:10 Pressure Control Cancelled 08/09/25 04:10 CPAP Cancelled 08/09/25 04:10 Mode BiPAP Cancelled 08/09/25 04:10 Specimen Drawn By Cancelled 08/09/25 04:10 Academic Affairs Dean ID Gd 08/09/25 09:05 Crit Value Read Back Cancelled 08/09/25 04:10 Blood Gas Notified Time Cancelled 08/09/25 04:10 Sodium 133 mmol/L (136-145) L 08/18/25 02:57 Potassium 3.8 mmol/L (3.5-5.1) 08/18/25 02:57 Chloride 94 mmol/L (98-107) L 08/18/25 02:57 Carbon Dioxide 23 mmol/L (22-29) 08/18/25 02:57 Anion Gap 19.8 (5-19) H 08/18/25 02:57 BUN 29 mg/dL (8-23) H 08/18/25 02:57 Creatinine 3.8 mg/dL (0.5-0.9) H 08/18/25 02:57 GFR Calculation Not Reportable 08/18/25 02:57 Glucose 87 mg/dL (65-115) 08/18/25 02:57 POC Glucose 176 mg/dL (70-110) H 08/08/25 15:47 Estimat Average Glucose 111 08/08/25 12:57 Hemoglobin A1c 5.5 % (4.0-6.0) 08/08/25 12:57 Calculated Osmolality 281 mOsm/kg (285-295) L 08/18/25 02:57 Lactic Acid 7.7 mmol/L (0.5-2.2) H* 08/08/25 14:05 Lactic Acid (Sepsis) 9.8 mmol/L (0.5-2.2) H* 08/08/25 16:44 Lactate 1.0 mmol/L (0.5-2.2) 08/15/25 03:25 Uric Acid 16.3 mg/dL (2.4-5.7) H 08/08/25 12:57 Calcium 9.1 mg/dL (8.5-10.5) 08/18/25 02:57 Phosphorus 4.6 mg/dL (2.5-4.5) H 08/14/25 05:52 Magnesium 2.0 mg/dL (1.7-2.3) 08/14/25 05:52 Iron 24 ug/dL (37-145) L 08/09/25 06:18 TIBC 228 mcg/dl 08/09/25 06:18 % Saturation 10.5 % (20-50) L 08/09/25 06:18 Unsat Iron Binding 204 ug/dL (112-347) 08/09/25 06:18 Ferritin 185 ng/mL (15-150) H 08/09/25 06:18 Total Bilirubin 0.8 mg/dL (0.15-1.2) 08/18/25 02:57 Direct Bilirubin 0.89 mg/dL (0.00-0.30) H 08/09/25 06:18 AST 30 U/L (0-32) 08/18/25 02:57 ALT < 5 U/L (0-33) 08/18/25 02:57 Alkaline Phosphatase 268 U/L (35-105) H 08/18/25 02:57 Ammonia 36 umol/L (11-51) 08/09/25 15:25 Lactate Dehydrogenase 518 U/L (135-214) H 08/09/25 06:18 Creatine Kinase 128 U/L (26-192) 08/08/25 18:13 Total Protein 5.0 g/dL (6.6-8.7) L 08/18/25 02:57 Albumin 2.9 g/dL (3.5-5.2) L 08/18/25 02:57 Globulin 2.1 g/dL (1.3-4.6) 08/18/25 02:57 Uysgq-4-Vivxuzxip 0.4 g/dL (0.2-0.3) H 08/09/25 09:48 Fjnlt-5-Upgmhuogd 0.6 g/dL (0.5-0.9) 08/09/25 09:48 Gopl-5-Pqnvgwya 0.3 g/dL (0.4-0.6) L 08/09/25 09:48 Inby-5-Hlaqtnyt 0.4 g/dL (0.2-0.5) 08/09/25 09:48 Gamma Globulins 0.6 g/dL (0.8-1.7) L 08/09/25 09:48 Abnorm Protein Band 1 Not Reportable 08/09/25 09:48 Triglycerides 85 mg/dL (0-150) 08/09/25 06:18 Cholesterol 132 mg/dL (0-200) 08/09/25 06:18 LDL Cholesterol, Calc 94 mg/dL (50-129) 08/09/25 06:18 HDL Cholesterol 21 mg/dL (60-100) L 08/09/25 06:18 LDL/HDL Ratio 4.48 RATIO (0.00-3.22) H 08/09/25 06:18 Cholesterol/HDL Ratio 6.29 mg/dL (0.0-4.40) H 08/09/25 06:18 Vitamin B12 1704 pg/mL (232-1245) H 08/08/25 18:13 25-OH Vitamin D Total 70 ng/mL (30-100) 08/09/25 06:18 Folate 5.7 ng/mL (4.8-37.3) 08/09/25 06:18 Procalcitonin 1.08 ng/mL (0-0.5) H 08/09/25 03:49 TSH 7.34 uIU/mL (0.27-4.20) H 08/08/25 18:13 Free T4 1.13 ng/dL (0.82-1.77) 08/08/25 21:19 Free T3 1.0 PG/ML (2.0-4.4) L 08/08/25 21:19 PTH Intact 556.8 pg/mL (15-65) H 08/09/25 06:18 Calcium (PTH Intact) 8.5 mg/dL (8.5-10.5) 08/09/25 06:18 Urine Color Yellow (Yellow) 08/09/25 01:05 Urine Appearance Slightly cloudy (CLEAR) 08/09/25 01:05 Urine pH Not Reportable 08/09/25 01:05 Ur Specific [place] Not Reportable 08/09/25 01:05 Urine Protein Not Reportable 08/09/25 01:05 Urine Glucose (UA) Not Reportable 08/09/25 01:05 Urine Ketones Not Reportable 08/09/25 01:05 Urine Blood Not Reportable 08/09/25 01:05 Urine Nitrate Not Reportable 08/09/25 01:05 Urine Bilirubin Not Reportable 08/09/25 01:05 Urine Urobilinogen Not Reportable 08/09/25 01:05 Ur Leukocyte Esterase Not Reportable 08/09/25 01:05 Urine RBC 0-4 /hpf (0-2) H 08/09/25 01:05 Urine WBC 5-10 /hpf (0-5) H 08/09/25 01:05 Ur Squamous Epith Cells 0-4 /hpf (0-5) H 08/09/25 01:05 Amorphous Sediment Not Reportable 08/09/25 01:05 Urine Bacteria Trace /hpf (NONE) 08/09/25 01:05 Urine Mucus 2+ /hpf 08/09/25 01:05 U Abnormal Prot Band 2 Not Reportable 08/09/25 09:48 U Abnormal Prot Band 3 Not Reportable 08/09/25 09:48 Nasal MRSA (PCR) Not detected (Not Detecte) 08/08/25 21:58 Salicylates < 0.3 mg/dL (3-10) L 08/08/25 18:13 Urine Opiates Screen Positive ng/mL (Negative) H 08/09/25 01:05 Ur Barbiturates Screen Negative ng/mL (Negative) 08/09/25 01:05 Ur Phencyclidine Scrn Negative ng/mL (Negative) 08/09/25 01:05 Ur Amphetamines Screen Negative ng/mL (Negative) 08/09/25 01:05 U Benzodiazepines Scrn Negative ng/mL (Negative) 08/09/25 01:05 Urine Cocaine Screen Negative ng/mL (Negative) 08/09/25 01:05 U Marijuana (THC) Screen Negative ng/mL (Negative) 08/09/25 01:05 Ethylene Glycol <10.0 mg/L () 08/09/25 09:48 Pro Electrophoresis Int See note 08/09/25 09:48 Serum Immunofixation See note 08/09/25 09:48 Heparin-induced Plt Ab Negative (Negative) 08/14/25 05:52 UF Heparin Result Negative (Negative) 08/14/25 05:52 MARCIA UFH Low Dose 0.1 0 % Release 08/14/25 05:52 MARCIA UFH Low Dose 0.5 0 % Release 08/14/25 05:52 MARCIA UFH High Dose 100 0 % Release 08/14/25 05:52 Free [place] Light Chains 130.0 mg/L (3.3-19.4) H 08/09/25 09:48 Free Lambda Light Chain 125.3 mg/L (5.7-26.3) H 08/09/25 09:48 Free [place]/Lambda Ratio 1.04 (0.26-1.65) 08/09/25 09:48 Adenovirus (PCR) Not detected (NOT DETECT) 08/09/25 17:30 C. pneumoniae DNA (PCR) Not detected (NOT DETECT) 08/09/25 17:30 Coronavirus 229E (PCR) Not detected (NOT DETECT) 08/09/25 17:30 Hep Bs Antigen Non-reactive (Nonreactive) 08/08/25 12:57 Hep Bs Antibody < 3.5 (11.5-1000) L 08/08/25 12:57 Hepatitis C Antibody Non-reactive (Nonreactive) 08/08/25 12:57 Human Metapneumovir PCR Not detected (NOT DETECT) 08/09/25 17:30 Influenza A (H1) PCR Not detected (NOT DETECT) 08/09/25 17:30 Influ A (H1/09) PCR Not detected (NOT DETECT) 08/09/25 17:30 Influenza A (H3) PCR Not detected (NOT DETECT) 08/09/25 17:30 Influenza Type A (PCR) Not detected (NOT DETECT) 08/09/25 17:30 Influenza Type B (PCR) Not detected (NOT DETECT) 08/09/25 17:30 M. pneumoniae (PCR) Not detected (NOT DETECT) 08/09/25 17:30 Parainfluenza 1 (PCR) Not detected (NOT DETECT) 08/09/25 17:30 Parainfluenza 2 (PCR) Not detected (NOT DETECT) 08/09/25 17:30 Parainfluenza 3 (PCR) Not detected (NOT DETECT) 08/09/25 17:30 Parainfluenza 4 (PCR) Not detected (NOT DETECT) 08/09/25 17:30 RSV Type A (PCR) Not detected (NOT DETECT) 08/09/25 17:30 RSV Type B (PCR) Not detected (NOT DETECT) 08/09/25 17:30 Entero/Rhino (PCR) Not detected (NOT DETECT) 08/09/25 17:30 SARS-CoV-2 (PCR) Not detected (NOT DETECT) 08/09/25 17:30 Vitals Last Vital Signs Temp 98.4 F 08/18/25 08:00 Pulse 73 08/18/25 13:14 Resp 17 08/18/25 13:14 BP 126/72 08/18/25 11:49 Pulse Ox 94 08/18/25 13:14 O2 Del Method Nasal Cannula 08/18/25 13:14 O2 Flow Rate 2 08/18/25 13:14 Discharge Plan Discharge Patient Disposition: Xfer SNF Condition: Stable Prescriptions: New ipratropium-albuterol 0.5 mg-3 mg(2.5 mg base)/3 mL Solution For Nebulization 3 ml inhalation Q6H.RESP 90 Days Qty: 180 0RF hydralazine 25 mg Tablet 50 mg PO TID 60 Days Qty: 360 0RF magnesium hydroxide [Milk of Magnesia] 400 mg/5 mL Suspension 30 ml PO DAILY PRN (Reason: Constipation (see protocol)) 60 Days Qty: 355 0RF docusate sodium 100 mg Capsule 100 mg PO BID 60 Days Qty: 120 0RF gabapentin 100 mg Capsule 100 mg PO DAILY 60 Days Qty: 60 0RF diltiazem HCl 30 mg Tablet 90 mg PO QID 60 Days Qty: 720 0RF ondansetron HCl (PF) 4 mg/2 mL Solution 4 mg IVP Q6H PRN (Reason: vomiting, or N/V if npo) 60 Days Qty: 50 0RF budesonide 0.5 mg/2 mL Suspension For Nebulization 0.5 mg inhalation BID.RESPIRATORY 90 Days Qty: 360 0RF calcitriol 0.25 mcg Capsule 0.25 mcg PO DAILY 60 Days Qty: 60 0RF Eliquis 2.5 mg tablet 2.5 mg PO BID 30 Days Qty: 60 0RF levalbuterol HCl 0.63 mg/3 mL solution for nebulization 0.63 mg inhalation TID 60 Days Qty: 540 0RF Continued atorvastatin 10 mg tablet 10 mg PO QDAY Qty: 90 2RF aripiprazole 2 mg tablet 2 mg PO DAILY Qty: 90 3RF venlafaxine 75 mg tablet 225 mg PO DAILY Qty: 90 3RF hydrocodone-acetaminophen 10-325 mg tablet 1 tab PO Q6H PRN (Reason: pain (scale score 7-10)) 30 Days Qty: 120 0RF cyclobenzaprine 10 mg tablet 10 mg PO BEDTIME PRN (Reason: muscle spasms) omeprazole 40 mg capsule,delayed release(DR/EC) 40 mg PO DAILY metoprolol tartrate 50 mg tablet 25 mg PO BID 90 Days Qty: 90 3RF Discontinued vitamin D3-vitamin K2 125 mcg (5,000 unit)-100 mcg capsule 1 cap PO DAILY Qty: 90 3RF amlodipine 5 mg tablet 5 mg PO DAILY Qty: 90 3RF hydrochlorothiazide 12.5 mg tablet 12.5 mg PO DAILY Qty: 90 3RF gabapentin 600 mg tablet 600 mg PO TID Qty: [address] Magistrate [place] for DC: Nephrology Discharge Order = DC NOW: Discharge Order (Routine); Ordered 08/18/25 Ordered By: Geovanny Gonzales Referrals: [facility] [Outside] [facility] [Outside] Collin Ford MD [Physician, Nephrology] - 2 weeks Referral Note: recently started on HD as inpatient for further followup Skilled Nursing will need to arrange any appts. The office is not open today Hebert Jiménez M.D [Physician, Cardiology] - 2 weeks Referral Note: FU for new onset at fibrillation started half dose of apixaban considering high risk of bleeding in the light of decreased plat and HD, HR controlled for followup and further plan of care We have notified your physician's clinic of the need for a follow-up appointment to be scheduled. If you have not heard from them within the next 2 business days, please call them directly. Marizol Rivera MD [Primary Care Provider, Family Practice] - 2 weeks Referral Note: post discharge followup We have notified your physician's clinic of the need for a follow-up appointment to be scheduled. If you have not heard from them within the next 2 business days, please call them directly. Discharge Diet: Cardiac and Low Salt Patient Instructions: Atrial Fibrillation, Diltiazem (By mouth), Ipratropium (By breathing), Calcitriol (By mouth), Gabapentin (By mouth), Hydralazine (By mouth), Ondansetron (By injection), Budesonide (By breathing), Levalbuterol (By breathing), Magnesium Hydroxide (By mouth), Apixaban (By mouth), Docusate Sodium (By mouth), Dementia (GEN), Acute Wound Care (DC), Crush Injury (ED), Opioid Safety, Post Anesthesia Care, Patient Portal & Lex Instructions Discharge Attestations Time Spent in Discharge Care*: greater than 30 min Specific Discharge Activities: educating patient, educating and/or supporting family/caregiver, discussing with pcp/other providers, discussing with case finishing machine adjuster/social workers/dc planners, documenting/other paperwork and evaluating patient/reviewing data Status at Discharge: Cognitive status at discharge: mildly impaired cognition, Behavioral status at discharge: can be uncooperative, Functional status at discharge: other assisted ambulation, Overall status at discharge: patient has a new baseline Quality Metrics Clinical Quality Measures [ No reported AMI, CVA or VTE this stay] Coding Level of Care Code 07911 Diagnoses Acute kidney injury superimposed on CKD N17.9; N18.9
== END 2025-08-18 15:18 | disposition skilled nursing facility (03) | DRG 871 ==
LOC: ER 14:03 → ICU 15:42 → CSU 08-16 17:24
PROVIDERS: Internal Medicine; Internal Medicine Nephrology; Student in an Organized Health Care Education/Training Program; Admitting Provider Student in an Organized Health Care Education/Training Program; Emergency Provider Family Medicine; PCP Family Medicine; Visit Provider Student in an Organized Health Care Education/Training Program
PROC: 0JH60XZ Insertion of Tunneled Vascular Access Device into Chest Subcutaneous Tissue and Fascia, Open Approach (ICD-10-PCS; principal; 2025-08-14 13:25)
DX: A41.9 Sepsis, unspecified organism (principal); J18.9 Pneumonia, unspecified organism; N17.9 Acute kidney failure, unspecified; G93.49 Other encephalopathy; J44.0 Chronic obstructive pulmonary disease with (acute) lower respiratory infection; E87.20 Acidosis, unspecified; I48.91 Unspecified atrial fibrillation; F03.C0 Unspecified dementia, severe, without behavioral disturbance, psychotic disturbance, mood disturbance, and anxiety; Z88.2 Allergy status to sulfonamides; N18.32 Chronic kidney disease, stage 3b; F17.210 Nicotine dependence, cigarettes, uncomplicated; I12.9 Hypertensive chronic kidney disease with stage 1 through stage 4 chronic kidney disease, or unspecified chronic kidney disease; E87.5 Hyperkalemia; R65.20 Severe sepsis without septic shock; D63.1 Anemia in chronic kidney disease; M47.812 Spondylosis without myelopathy or radiculopathy, cervical region; M51.34 Other intervertebral disc degeneration, thoracic region; G62.9 Polyneuropathy, unspecified; E78.5 Hyperlipidemia, unspecified; R29.6 Repeated falls; R74.01 Elevation of levels of liver transaminase levels; I27.20 Pulmonary hypertension, unspecified; I07.1 Rheumatic tricuspid insufficiency; D69.6 Thrombocytopenia, unspecified; B95.61 Methicillin susceptible Staphylococcus aureus infection as the cause of diseases classified elsewhere; Y64.1 Contaminated medical or biological substance, injected or used for immunization; Y92.239 Unspecified place in hospital as the place of occurrence of the external cause
CPT/HCPCS: 36415; 36416; 36592; 36600; 51702; 70450; 71045; 72125; 74176; 76705; 77001; 80048; 80051; 80053; 80061; 80076; 80306; 80307; 81003; 82140; 82306; 82310; 82330; 82550; 82607; 82693; 82728; 82746; 82805; 82962; 83010; 83036; 83540; 83550; 83605; 83615; 83735; 83883; 83970; 84100; 84145; 84155; 84165; 84439; 84443; 84481; 84550; 85025; 85045; 86022; 86334; 86706; 86803; 87040; 87070; 87075; 87077; 87186; 87205; 87340; 87486; 87581; 87633; 90935; 92507; 92523; 92526; 92610; 93005; 93306; 94640; 94664; 96365; 96372; 96375; 97110; 97116; 97162; 97165; 97530; 97535; 99285; C1750; J0360; J0612; J0696; J1644; J1815; J1938; J2270; J2470; J2704; J2916; J3010; J3490; J7030; J7060; J7611; J7626; J7799; J9999; Q3014; Q5105

== ENCOUNTER 2025-08-26 12:07 | Emergency (ER) | payer MEDICARE, SELFPAY ==
[2025-08-26] VITALS (7 sets, daily range): BP systolic 135–168; BP diastolic 80–113; PULSE 80–112; RESP 16–23; TEMP 36.9; O2SAT 92–98
--- OUTSIDE RECORDS SUMMARY | 2025-08-26 12:12 | XMS_ITS | Clinical Summary ---
Author Organization [facility] Facility Address [address] [facility] [address] [place] [address] Care Team Providers Care Travel Counselor [employer] Name Role Phone Unavailable Primary Care Provider Unavailabl e Encounters Date Type Department Care Team Description 08/25/2025 Orders Only [facility] [address] [place] [address] Macho Witt MD 08/21/2025 Orders Only [facility] [address] [place] [address] Macho Witt MD from Last 3 Months Social History Tobacco Use Types Packs/Day Years Used Date Smoking Tobacco: Never Assessed Comments Unknown Sex and Gender Information Value Date Recorded Sex Assigned at Not on file Legal Sex Female 2:37 PM EST Gender Identity Not on file Sexual Orientation Not on file Plan of Treatment Health Maintenance Due Date Last Done Comments Breast Cancer Screening 1950 Colorectal Cancer Screening: Annual FOBT 1999 Colorectal Cancer Screening: Colonoscopy 1999 Colorectal Cancer Screening: Sigmoidoscopy 1999 Pneumococcal Vaccine: 50+ Ye ars (1 of 1 - PCV) 2000 Influenza Vaccine (#1) 2025 Hepatitis B Vaccine Aged Out No longe r eligible based on patient's age to complete this topic Procedures Procedure Name Priority Date/Time Associated Diagnosis Comments ALBUMIN Routine 08/25/2025 FERRITIN Routine 08/21/2025 PTH, INTACT Routine 08/21/2025 HEPATITIS C AB W/REFL TO HCV RNA, QN, PCR (REFL) Routine 08/21/2025 HEPATITIS B SURFACE AB IMMUNITY Routine 08/21/2025 HEPATITIS B CORE AB TOTAL Routine 08/21/2025 HEPATITIS B SURFACE ANTIGEN W/REFL CONFIRM Routine 08/21/2025 DIFFERENTIAL WITH WBC Routine 08/21/2025 CBC Routine 08/21/2025 PLATELET COUNT Routine 08/21/2025 POST DIALYSIS BUN Routine 08/21/2025 IRON AND TIBC Routine 08/21/2025 MAGNESIUM Routine 08/21/2025 GLUCOSE, RANDOM Routine 08/21/2025 PROTEIN, TOTAL, SERUM Routine 08/21/2025 ALKALINE PHOSPHATASE Routine 08/21/2025 PHOSPHATE ( PHOSPHORUS) Routine 08/21/2025 CALCIUM Routine 08/21/2025 CO2, TOTAL Routine 08/21/2025 CHLORIDE Routine 08/21/2025 SODIUM Routine 08/21/2025 BUN Routine 08/21/2025 POTASSIUM Routine 08/21/2025 from Last 3 Months Results * (ABNORMAL) Albumin (08/25/2025) Albumin 3.4(L) 3.6 - 5.1 g/dL [facility] 08/25/2025 08/25/2025 7:4 2 AM HYSTER MACHINE OPERATOR Narrative Resulting Agency Comment Performing Organization Information: Site ID: JUAN Name: [facility] Address: [address] [place] [phone] Director: Jovanna Alvarado MD Macho Witt MD LAB BLOOD ORDERABLES Final Result Performing Organization Address [facility] Co de Phone Number [facility] [address] [place] [phone] * (ABNORMAL) Iron and TIBC (08/21/2025) Iron, Total 46 45 - 160 mcg/dL [facility] TIBC 240(L) 250 - 450 mcg/dL (calc) [facility] Iron Saturation (TSat) 19 16 - 45 % (calc) [facility] 08/21/2025 08/17/2025 9:3 1 AM HYSTER MACHINE OPERATOR Narrative Resulting Agency Comment Performing Organization Information: Site ID: JUAN Name: [facility] Address: [address] [place] [phone] Director: Jovanna Alvarado MD Macho Witt MD LAB BLOOD ORDERABLES Final Result Performing Organization Address [facility] Co de Phone Number [facility] [address] [place] [phone] * (ABNORMAL) Hepatitis B Surface Ab Immunity (08/21/2025) Hepatitis B Surface Ab <5(L) > OR = 10 mIU/mL [facility] Comment: Patient does not have immunity to hepatitis B virus. 08/21/2025 08/17/2025 9:3 1 AM HYSTER MACHINE OPERATOR Narrative Resulting Agency Comment Performing Organization Information: Site ID: JUAN Name: [facility] Address: [address] [place], [place] [address] [place] [address] Director: Jovanna Alvarado MD Macho Witt MD LAB BLOOD ORDERABLES Final Result [facility] [address] [facility] [place] [address] * HEPATITIS C AB W/REFL TO HCV RNA, QN, PCR (REFL) (08/21/2025) Hepatitis C Antibody NON-REACTI VE NON-REACT SHANNON [facility] Comment: HCV antibody was non-reactive. There is no laboratory evidence of HCV infection. In most cases, no further action is required. However, if recent HCV exposure is suspected, a test for HCV RNA (test code 32274) is suggested. For additional information please refer to http://Easyaula.Youtego/faq/XPX98n3 (This link is being provided for informational/ educational purposes only.) 08/21/2025 08/17/2025 9:3 1 AM HYSTER MACHINE OPERATOR Narrative Resulting Agency Comment Performing Organization Information: Site ID: JUAN Name: [facility] Address: [address] [place] [phone] Director: Jovanna Alvarado MD Macho Witt MD LAB HISTORICA [id number] RESULTS Final Result Performing Organization Address [facility] Co de Phone Number [facility] [address] [place] [address] * Hepatitis B Surface Ag w/Reflex Confirmation (08/21/2025) Hep B Surface Antigen NON-REACTI VE NON-REACTI VE [facility] Comment: For additional information, please refer to http://Easyaula.Youtego/faq/YYU091 (This link is being provided for informational/ educational purposes only.) 08/21/2025 08/17/2025 9:3 1 AM HYSTER MACHINE OPERATOR Narrative Resulting Agency Comment Performing Organization Information: Site ID: JUAN Name: [facility] Address: [address] [place] [phone] Director: Jovanna Alvarado MD us Macho Witt MD LAB BLOOD ORDERABLES Final Result Performing Organization Address City/[facility] Co de Phone Number [facility] [address] [facility] [place] [address] * Post Dialysis BUN (08/21/2025) BUN Post Dialysis 11 7 - 25 mg/dL [facility] 08/21/2025 08/17/2025 9:3 1 AM HYSTER MACHINE OPERATOR Narrative Resulting Agency Comment Performing Organization Information: Site ID: JUAN Name: [facility] Address: [address] [place] [address] Director: Jovanna Alvarado MD us Macho Witt MD LAB BLOOD ORDERABLES Final Result Performing Organization Address [facility] de Phone Number [facility] [address] [facility] [place] [address] * Hepatitis B Core Antibody, Total (08/21/2025) HBc Total Ab, S NON-REACTI VE NON-REACTI VE [facility] Comment: For additional information, please refer to http://education.Youtego/faq/OTP887 (This link is being provided for informational/ educational purposes only.) 08/21/2025 08/17/2025 9:3 1 AM HYSTER MACHINE OPERATOR Narrative Resulting Agency Comment Performing Organization Information: Site ID: [place] Name: [facility] Address: [address] [place] [phone] Director: Jovanna Alvarado MD us Macho Witt MD LAB BLOOD ORDERABLES Final Result Performing Organization Address City/[facility] Co de Phone Number [facility] [address] [place] [address] * (ABNORMAL) Differential with WBC (08/21/2025) WBC 14.0(H) 3.8 - 10.8 Thousand/ uL [facility] Neutrophils Absolute 12,390(H) 1,500 - 7,800 cells/uL [facility] Lymphocytes Absolute 798(L) 850 - 3,900 cells/uL [facility] Monocytes Absolute 658 200 - 950 cells/uL [facility] Eosinophils Absolute 84 15 - 500 cells/uL [facility] Basophils Absolute 70 0 - 200 cells/uL [facility] Neutrophils Relative 88.5 % [facility] Lymphocytes 5.7 % [facility] Monocytes 4.7 % [facility] Eosinophils 0.6 % [facility] Basophils Relative 0.5 % [facility] 08/21/2025 08/17/2025 9:3 1 AM HYSTER MACHINE OPERATOR Narrative Resulting Agency Comment Performing Organization Information: Site ID: JUAN Name: [facility] Address: [address] [place] [phone] Director: Jovanna Alvarado MD Macho Witt MD LAB BLOOD ORDERABLES Final Result Performing Organization Address [facility] Co de Phone Number [facility] [id number] [place] [phone] * Platelet count (08/21/2025) Pathologist [facility] Platelets 254 140 - 400 Thousand/uL [facility] 08/21/2025 08/17/2025 9:3 1 AM HYSTER MACHINE OPERATOR Narrative Resulting Agency Comment Performing Organization Information: Site ID: JUAN Name: [facility] Address: [address] [place] [phone] Director: Jovanna Alvarado MD Macho Witt MD LAB BLOOD ORDERABLES Final Result Performing Organization Address City/State/[facility] Co de Phone Number [facility] [address] [place] [address] * (ABNORMAL) CBC (08/21/2025) WBC 14.0(H) 3.8 - 10.8 Thousand/uL [facility] RBC 2.82(L) 3.80 - 5.10 Million/uL [facility] Hemoglobin 8.4(L) 11.7 - 14.0 g/dL [facility] Hematocrit 26.9(L) 35.9 - 46.0 % [facility] MCV 95.4 81.4 - 101.7 fL [facility] MCH 29.8 27.0 - 33.0 pg [facility] MCHC 31.2(L) 31.6 - 35.4 g/dL [facility] RDW 15.5(H) 11.0 - 15.0 % [facility] 08/21/2025 08/17/2025 9:3 1 AM HYSTER MACHINE OPERATOR Narrative Resulting Agency Comment Performing Organization Information: Site ID: JUAN Name: [facility] Address: [address] [place] [address] Director: Jovanna Alvarado MD Macho Witt MD LAB BLOOD ORDERABLES Final Result Performing Organization Address [facility] Co de Phone Number [facility] [address] [facility] [place] [address] * (ABNORMAL) BUN (08/21/2025) BUN 83(H) 7 - 25 mg/dL [facility] 08/21/2025 08/17/2025 9:3 1 AM HYSTER MACHINE OPERATOR Narrative Resulting Agency Comment Performing Organization Information: Site ID: JUAN Name: [facility] Address: [address] [place] [address] [place] [address] Director: Jovanna Alvarado MD us Macho Witt MD LAB BLOOD ORDERABLES Final Result [facility] [address] [place] [address] * (ABNORMAL) Sodium (08/21/2025) Sodium 134(L) 135 - 146 mmol/L [facility] 08/21/2025 08/17/2025 9:3 1 AM HYSTER MACHINE OPERATOR Narrative Resulting Agency Comment Performing Organization Information: Site ID: JUAN Name: [facility] Address: [address] [place], [place] [address]ner [facility] [place] [address] Director: Jovanna Alvarado MD us Macho Witt MD LAB BLOOD ORDERABLES Final Result Performing Organization Address City/[facility]/ZIP Co de Phone Number [facility] [address] [place] [address] [place] [address] * (ABNORMAL) Protein, total (08/21/2025) Total Protein 5.8(L) 6.1 - 8.1 g/dL [facility] 08/21/2025 08/17/2025 9:3 1 AM HYSTER MACHINE OPERATOR Narrative Resulting Agency Comment Performing Organization Information: Site ID: JUAN Name: [facility] Address: [address] [place], [place] [address] [facility] [place] [address] Director: Jovanna Alvarado MD us Macho Witt MD LAB BLOOD ORDERABLES Final Result [facility] [address] [facility] [place] [address] * Potassium (08/21/2025) Potassium 4.6 3.5 - 5.3 mmol/L [facility] 08/21/2025 08/17/2025 9:3 1 AM HYSTER MACHINE OPERATOR Narrative Resulting Agency Comment Performing Organization Information: Site ID: JUAN Name: [facility] Address: [address] [place] [phone] Director: Jovanna Alvarado MD us Macho Witt MD LAB BLOOD ORDERABLES Final Result Performing Organization Address City/[facility]/ZIP Co de Phone Number [facility] [address] [place] [address] * (ABNORMAL) Phosphorus (08/21/2025) Phosphorus 7.8(H) 3.0 - 4.3 mg/dL [facility] 08/21/2025 08/17/2025 9:3 1 AM HYSTER MACHINE OPERATOR Narrative Resulting Agency Comment Performing Organization Information: Site ID: JUAN Name: [facility] Address: [address] [place] [address] Director: Jovanna Alvarado MD us Macho Witt MD LAB BLOOD ORDERABLES Final Result Performing Organization Address City/[facility] Co de Phone Number [facility] [address] [place] [address] * (ABNORMAL) Alkaline phosphatase (08/21/2025) Alkaline Phosphatase 222(H) 37 - 153 U/L [facility] 08/21/2025 08/17/2025 9:3 1 AM HYSTER MACHINE OPERATOR Narrative Resulting Agency Comment Performing Organization Information: Site ID: JUAN Name: [facility] Address: [address] [place] [phone] Director: Jovanna Alvarado MD us Macho Witt MD LAB BLOOD ORDERABLES Final Result Performing Organization Address City/[facility]/ZIP Co de Phone Number [facility] [address] [place] [address] * (ABNORMAL) PTH, Intact (08/21/2025) Parathyroid Hormone, Intact 125(H) 16 - 77 pg/mL [facility] Comment: Interpretive Guide Intact PTH Calcium ------- Normal Parathyroid Normal Normal Hypoparathyroidism Low or Low Normal Low Hyperparathyroidism Primary Normal or High High Secondary High Normal or Low Tertiary High High Non-Parathyroid Hypercalcemia Low or Low Normal High 08/21/2025 08/17/2025 9:3 1 AM HYSTER MACHINE OPERATOR Narrative Resulting Agency Comment Performing Organization Information: Site ID: JUAN Name: [facility] Address: [address] [place] [phone] Director: Jovanna Alvarado MD Macho Witt MD LAB BLOOD ORDERABLES Final Result Performing Organization Address City/[facility]/ZIP Co de Phone Number [facility] [address] [place] [address] * Magnesium (08/21/2025) Pathologist [facility] Magnesium 2.2 1.6 - 2.5 mg/dL [facility] 08/21/2025 08/17/2025 9:3 1 AM HYSTER MACHINE OPERATOR Narrative Resulting Agency Comment Performing Organization Information: Site ID: JUAN Name: [facility] Address: [address] [place] [phone] Director: Jovanna Alvarado MD Macho Witt MD LAB BLOOD ORDERABLES Final Result Performing Organization Address City/[facility]/ZIP Co de Phone Number [facility] [address] [place] [address] * (ABNORMAL) Glucose, random (08/21/2025) Glucose 134(H) 65 - 99 mg/dL [facility] Comment: For someone without known diabetes, a glucose value >125 mg/dL indicates that they may have diabetes and this should be confirmed with a follow-up test. 08/21/2025 08/17/2025 9:3 1 AM HYSTER MACHINE OPERATOR Narrative Resulting Agency Comment Performing Organization Information: Site ID: JUAN Name: [facility] Address: [facility] [place] [place] [facility] [place] [address] Director: Jovanna Alvarado MD us Macho Witt MD LAB BLOOD ORDERABLES Final Result [facility] [address] [place], [place] [address] [facility] [place] [address] * (ABNORMAL) Ferritin (08/21/2025) Ferritin 693(H) 16 - 288 ng/mL [facility] 08/21/2025 08/17/2025 9:3 1 AM HYSTER MACHINE OPERATOR Narrative Resulting Agency Comment Performing Organization Information: Site ID: JUAN Name: [facility] Address: [address] [place], [place] [address] [address] Director: Jovanna Alvarado MD us Macho Witt MD LAB BLOOD ORDERABLES Final Result Performing Organization Address City/[facility]/ZIP Co de Phone Number [facility] [address] [place] [address] [place] [address] * (ABNORMAL) Chloride (08/21/2025) Chloride 95(L) 98 - 110 mmol/L [facility] 08/21/2025 08/17/2025 9:3 1 AM HYSTER MACHINE OPERATOR Narrative Resulting Agency Comment Performing Organization Information: Site ID: JUAN Name: [facility] Address: [facility] [place] [facility] [place] [address] Director: Jovanna Alvarado MD Macho Witt MD LAB BLOOD ORDERABLES Final Result [facility] [address] [place] [address] * CO2 (08/21/2025) Bicarbonate (CO2) 21 20 - 29 mmol/L [facility] 08/21/2025 08/17/2025 9:3 1 AM HYSTER MACHINE OPERATOR Narrative Resulting Agency Comment Performing Organization Information: Site ID: JUAN Name: [facility] Address: [address] [place] [address] Director: Jovanna Alvarado MD us Macho Witt MD LAB BLOOD ORDERABLES Final Result Performing Organization Address [facility] Co de Phone Number [facility] [address] [place] [address] * Calcium (08/21/2025) Calcium 9.2 8.6 - 10.0 mg/dL [facility] 08/21/2025 08/17/2025 9:3 1 AM HYSTER MACHINE OPERATOR Narrative Resulting Agency Comment Performing Organization Information: Site ID: JUAN Name: [facility] Address: [address] [place] [phone] Director: Jovanna Alvarado MD Macho Witt MD LAB BLOOD ORDERABLES Final Result Performing Organization Address City/[facility]/ZIP Co de Phone Number [facility] [address] [place] [address] from Last 3 Months Insurance [facility] PPO ([phone])
--- OUTSIDE RECORDS SUMMARY | 2025-08-26 12:12 | XMS_ITS | Encounter Summary ---
Author Organization [facility] Address [address] [place] [address] Care Team Providers Care Shoe Dresser Name Role Phone Unavailable Primary Care Provider Unavailabl e Encounter Details Date Type Department Care Team (Late st Contact Info) Description 02/25/2005 Outpatient Historical [facility] [phone] Social History Tobacco Use Types Packs/Day Years Used Date Smoking Tobacco: Never Assessed Comments Unknown Sex and Gender Information Value Date Recorded Sex Assigned at Not on file Legal Sex Female 3:41 AM DRIER FEEDER Gender Identity Not on file Sexual Orientation Not on file documented as of this encounter Plan of Treatment Not on file documented as of this encounter Visit Diagnoses Not on filedocumented in this encounter
--- OUTSIDE RECORDS SUMMARY | 2025-08-26 12:12 | XMS_ITS | Encounter Summary ---
Author Organization [facility] [employer], [facility] Address [address] [place] [address] Phone Care Team Providers Care Flat Surfacer Jewel Name Role Phone Unavailable Primary Care Provider Unavailabl e Encounter Details Date Type Department Care Team (Late st Contact Info) Description 08/21/2025 Orders Only [facility] [employer], [facility] [address] [place] [address] Macho Witt MD [address] [place] [address] Social History Tobacco Use Types Packs/Day Years Used Date Smoking Tobacco: Never Assessed Comments Unknown Sex and Gender Information Value Date Recorded Sex Assigned at Not on file Legal Sex Female 2:37 PM EST Gender Identity Not on file Sexual Orientation Not on file documented as of this encounter Plan of Treatment Pending Results Name Type Priority Associated Diagnoses Date /Time Creatinine, urine, timed Lab Routine 08/21/2025 Creatinine Clearance, Normalized Lab Routine 08/21/2025 Aluminum level Lab Routine 08/21/2025 documented as of this encounter Procedures Procedure Name Priority Date/Time Associated Diagnosis Comments IRON AND TIBC Routine 08/21/2025 HEPATITIS B SURFACE AB IMMUNITY Routine 08/21/2025 HEPATITIS C AB W/REFL TO HCV RNA, QN, PCR (REFL) Routine 08/21/2025 HEPATITIS B SURFACE ANTIGEN W/REFL CONFIRM Routine 08/21/2025 POST DIALYSIS BUN Routine 08/21/2025 HEPATITIS B CORE AB TOTAL Routine 08/21/2025 DIFFERENTIAL WITH WBC Routine 08/21/2025 PLATELET COUNT Routine 08/21/2025 CBC Routine 08/21/2025 BUN Routine 08/21/2025 SODIUM Routine 08/21/2025 PROTEIN, TOTAL, SERUM Routine 08/21/2025 POTASSIUM Routine 08/21/2025 PHOSPHATE ( PHOSPHORUS) Routine 08/21/2025 ALKALINE PHOSPHATASE Routine 08/21/2025 PTH, INTACT Routine 08/21/2025 MAGNESIUM Routine 08/21/2025 GLUCOSE, RANDOM Routine 08/21/2025 FERRITIN Routine 08/21/2025 CHLORIDE Routine 08/21/2025 CO2, TOTAL Routine 08/21/2025 CALCIUM Routine 08/21/2025 documented in this encounter Results * (ABNORMAL) Ferritin (08/21/2025) Ferritin 693(H) 16 - 288 ng/mL [facility] 08/21/2025 08/17/2025 9:3 1 AM GAS PIPE LAYER Narrative Resulting Agency Comment Performing Organization Information: Site ID: JUAN Name: [facility] Address: [address] [address] Director: Jovanna Alvarado MD Macho Witt MD LAB BLOOD ORDERABLES Final Result Performing Organization Address [facility] Co de Phone Number [facility] [address] [facility] [place] [address] * (ABNORMAL) PTH, Intact (08/21/2025) Parathyroid Hormone, Intact 125(H) 16 - 77 pg/mL [facility] Comment: Interpretive Guide Intact PTH Calcium ------- Normal Parathyroid Normal Normal Hypoparathyroidism Low or Low Normal Low Hyperparathyroidism Primary Normal or High High Secondary High Normal or Low Tertiary High High Non-Parathyroid Hypercalcemia Low or Low Normal High 08/21/2025 08/17/2025 9:3 1 AM GAS PIPE LAYER Narrative Resulting Agency Comment Performing Organization Information: Site ID: [place] Name: [facility] Address: [address] [place] [phone] Director: Jovanna Alvarado MD Macho Witt MD LAB BLOOD ORDERABLES Final Result Performing Organization Address [facility] de Phone Number [facility] [address] [place] [address] * HEPATITIS C AB W/REFL TO HCV RNA, QN, PCR (REFL) (08/21/2025) Hepatitis C Antibody NON-REACTI VE NON-REACT SHANNON [facility] Comment: HCV antibody was non-reactive. There is no laboratory evidence of HCV infection. In most cases, no further action is required. However, if recent HCV exposure is suspected, a test for HCV RNA (test code 85136) is suggested. For additional information please refer to http://education.[employer]/faq/MTL57r0 (This link is being provided for informational/ educational purposes only.) 08/21/2025 08/17/2025 9:3 1 AM GAS PIPE LAYER Narrative Resulting Agency Comment Performing Organization Information: Site ID: JUAN Name: [facility] Address: [address] [place] [phone] Director: Jovanna Alvarado MD Macho Witt MD LAB HISTORICA [id number] RESULTS Final Result Performing Organization Address [facility]/ZIP Co de Phone Number [facility] [address] [facility] [place] [address] * (ABNORMAL) Hepatitis B Surface Ab Immunity (08/21/2025) Hepatitis B Surface Ab <5(L) > OR = 10 mIU/mL [facility] Comment: Patient does not have immunity to hepatitis B virus. 08/21/2025 08/17/2025 9:3 1 AM GAS PIPE LAYER Narrative Resulting Agency Comment Performing Organization Information: Site ID: JUAN Name: [facility] Address: [address] [place] [phone] Director: Jovanna Alvarado MD us Macho Witt MD LAB BLOOD ORDERABLES Final Result Performing Organization Address [facility] Co de Phone Number [facility] [address] [place] [phone] * Hepatitis B Core Antibody, Total (08/21/2025) HBc Total Ab, S NON-REACTI VE NON-REACTI VE [facility] Comment: For additional information, please refer to http://education.[employer].com/faq/KMU061 (This link is being provided for informational/ educational purposes only.) 08/21/2025 08/17/2025 9:3 1 AM GAS PIPE LAYER Narrative Resulting Agency Comment Performing Organization Information: Site ID: JUAN Name: [facility] Address: [address] [place] [phone] Director: Jovanna Alvarado MD us Macho Witt MD LAB BLOOD ORDERABLES Final Result Performing Organization Address [facility]/ZIP Co de Phone Number [facility] [address] [facility] [place] [address] * Hepatitis B Surface Ag w/Reflex Confirmation (08/21/2025) Hep B Surface Antigen NON-REACTI VE NON-REACTI VE [facility] Comment: For additional information, please refer to http://education.[employer]/faq/AQQ154 (This link is being provided for informational/ educational purposes only.) 08/21/2025 08/17/2025 9:3 1 AM GAS PIPE LAYER Narrative Resulting Agency Comment Performing Organization Information: Site ID: [place] Name: [facility] Address: [address] [place] [phone] Director: Jovanna Alvarado MD Macho Witt MD LAB BLOOD ORDERABLES Final Result Performing Organization Address [facility] Co de Phone Number [facility] [address] [place] [address] * (ABNORMAL) Differential with WBC (08/21/2025) WBC [...] [facility] 08/21/2025 08/17/2025 9:3 1 AM GAS PIPE LAYER Narrative Resulting Agency Comment Performing Organization Information: Site ID: JUAN Name: [facility] Address: [address] [place] [address] Director: Jovanna Alvarado MD Macho Witt MD LAB BLOOD ORDERABLES Final Result Performing Organization Address [facility]/ZIP Co de Phone Number [facility] [address] [facility] [place] [address] * (ABNORMAL) CBC (08/21/2025) WBC 14.0(H) 3.8 [...] [facility] 08/21/2025 08/17/2025 9:3 1 AM GAS PIPE LAYER Narrative Resulting Agency Comment Performing Organization Information: Site ID: JUAN Name: [facility]ers Address: [address] [facility] [place] [address] Director: Jovanna Alvarado MD Macho Witt MD LAB BLOOD ORDERABLES Final Result Performing Organization Address [facility]/ZIP Co de Phone Number [facility] [address] [facility] [place] [address] * Platelet count (08/21/2025) Platelets 254 140 - 400 Thousand/uL [facility] 08/21/2025 08/17/2025 9:3 1 AM GAS PIPE LAYER Narrative Resulting Agency Comment Performing Organization Information: Site ID: JUAN Name: [facility] Address: [address] [place], [place] [address] [address] Director: Jovanna Alvarado MD us Macho iWtt MD LAB BLOOD ORDERABLES Final Result Performing Organization Address [facility]/ZIP Co de Phone Number [facility] [address] [place] [phone] * Post Dialysis BUN (08/21/2025) BUN Post Dialysis 11 7 - 25 mg/dL [facility] 08/21/2025 08/17/2025 9:3 1 AM GAS PIPE LAYER Narrative Resulting Agency Comment Performing Organization Information: Site ID: JUAN Name: [facility] Address: [address] [place] [phone] Director: Jovanna Alvarado MD us Macho Witt MD LAB BLOOD ORDERABLES Final Result Performing Organization Address [facility] Co de Phone Number [facility] [address] [place] [phone] * (ABNORMAL) Iron and TIBC (08/21/2025) Iron, Total 46 45 - 160 mcg/dL [facility] TIBC 240(L) 250 - 450 mcg/dL (calc) [facility] Iron Saturation (TSat) 19 16 - 45 % (calc) [facility] 08/21/2025 08/17/2025 9:3 1 AM GAS PIPE LAYER Narrative Resulting Agency Comment Performing Organization Information: Site ID: JUAN Name: [facility] Address: [address] [facility] [place] [address] Director: Jovanna Alvarado MD Macho Witt MD LAB BLOOD ORDERABLES Final Result Performing Organization Address [facility] Co de Phone Number [facility] [address] [place] [address] * Magnesium (08/21/2025) Pathologist [facility] Magnesium 2.2 1.6 - 2.5 mg/dL [facility] 08/21/2025 08/17/2025 9:3 1 AM GAS PIPE LAYER Narrative Resulting Agency Comment Performing Organization Information: Site ID: JUAN Name: [facility] Address: [address] [facility] [place] [address] Director: Jovanna Alvarado MD us Macho Witt MD LAB BLOOD ORDERABLES Final Result Performing Organization Address [facility] de Phone Number [facility] [address] [facility] [place] [address] * (ABNORMAL) Glucose, random (08/21/2025) Pathologist [facility] Glucose 134(H) 65 - 99 mg/dL [facility] Comment: For someone without known diabetes, a glucose value >125 mg/dL indicates that they may have diabetes and this should be confirmed with a follow-up test. 08/21/2025 08/17/2025 9:3 1 AM GAS PIPE LAYER Narrative Resulting Agency Comment Performing Organization Information: Site ID: JUAN Name: [facility] Address: [address] [facility] [place] [address] Director: Jovanna Alvarado MD Macho Witt MD LAB BLOOD ORDERABLES Final Result Performing Organization Address [facility] Co de Phone Number [facility] [place] [address] * (ABNORMAL) Protein, total (08/21/2025) Total Protein 5.8(L) 6.1 - 8.1 g/dL [facility] 08/21/2025 08/17/2025 9:3 1 AM GAS PIPE LAYER Narrative Resulting Agency Comment Performing Organization Information: Site ID: JUAN Name: [facility] Address: [address] [place] [phone] Director: Jovanna Alvarado MD Macho Witt MD LAB BLOOD ORDERABLES Final Result Performing Organization Address [facility]/ZIP Co de Phone Number [facility] [address] [place] [phone] * (ABNORMAL) Alkaline phosphatase (08/21/2025) Alkaline Phosphatase 222(H) 37 - 153 U/L [facility] 08/21/2025 08/17/2025 9:3 1 AM GAS PIPE LAYER Narrative Resulting Agency Comment Performing Organization Information: Site ID: JUAN Name: [facility] Address: [address] [place] [phone] Director: Jovanna Alvarado MD us Macho Witt MD LAB BLOOD ORDERABLES Final Result Performing Organization Address [facility]/ZIP Co de Phone Number [facility] [address] [place] [phone] * (ABNORMAL) Phosphorus (08/21/2025) Phosphorus 7.8(H) 3.0 - 4.3 mg/dL [facility] 08/21/2025 08/17/2025 9:3 1 AM GAS PIPE LAYER Narrative Resulting Agency Comment Performing Organization Information: Site ID: JUAN Name: [facility] Address: [address] [place] [phone] Director: Jovanna Alvarado MD us Macho Witt MD LAB BLOOD ORDERABLES Final Result Performing Organization Address [facility]/ZIP Co de Phone Number [facility] [address] [place] [phone] * Calcium (08/21/2025) Calcium 9.2 8.6 - 10.0 mg/dL [facility] 08/21/2025 08/17/2025 9:3 1 AM GAS PIPE LAYER Narrative Resulting Agency Comment Performing Organization Information: Site ID: [place] Name: [facility] Address: [address] [place] [phone] Director: Jovanna Alvarado MD us Macho Witt MD LAB BLOOD ORDERABLES Final Result Performing Organization Address [facility] Co de Phone Number [facility] [address] [place] [address] [address] * CO2 (08/21/2025) Bicarbonate (CO2) 21 20 - 29 mmol/L [facility] 08/21/2025 08/17/2025 9:3 1 AM GAS PIPE LAYER Narrative Resulting Agency Comment Performing Organization Information: Site ID: JUAN Name: [facility] Address: [address] [place] [phone] Director: Jovanna Alvarado MD us Macho Witt MD LAB BLOOD ORDERABLES Final Result Performing Organization Address [facility]/ZIP Co de Phone Number [facility] [address] [place] [phone] * (ABNORMAL) Chloride (08/21/2025) Chloride 95(L) 98 - 110 mmol/L [facility] 08/21/2025 08/17/2025 9:3 1 AM GAS PIPE LAYER Narrative Resulting Agency Comment Performing Organization Information: Site ID: JUAN Name: [facility] Address: [address] [facility] [place] [address] Director: Jovanna Alvarado MD Macho Witt MD LAB BLOOD ORDERABLES Final Result Performing Organization Address [facility]/ZIP Co de Phone Number [facility] [address] [facility] [place] [address] * (ABNORMAL) Sodium (08/21/2025) Sodium 134(L) 135 - 146 mmol/L [facility] 08/21/2025 08/17/2025 9:3 1 AM GAS PIPE LAYER Narrative Resulting Agency Comment Performing Organization Information: Site ID: JUAN Name: [facility] Address: [facility] [address] [facility] [place] [address] Director: Jovanna Alvarado MD us Macho Witt MD LAB BLOOD ORDERABLES Final Result Performing Organization Address [facility] Co de Phone Number [facility] [address] [facility] [address] * (ABNORMAL) BUN (08/21/2025) BUN 83(H) 7 - 25 mg/dL [facility] 08/21/2025 08/17/2025 9:3 1 AM GAS PIPE LAYER Narrative Resulting Agency Comment Performing Organization Information: Site ID: JUAN Name: [facility] Address: [address] [facility] [place] [address] Director: Jovanna Alvarado MD Macho Witt MD LAB BLOOD ORDERABLES Final Result Performing Organization Address [facility]/ZIP Co de Phone Number [facility] [address] [facility] [place] [address] * Potassium (08/21/2025) Potassium 4.6 3.5 - 5.3 mmol/L [facility] 08/21/2025 08/17/2025 9:3 1 AM GAS PIPE LAYER Narrative Resulting Agency Comment Performing Organization Information: Site ID: [place] Name: [facility] Address: [address] [place] [address] Director: Jovanna Alvarado MD us Macho Witt MD LAB BLOOD ORDERABLES Final Result [facility] [address] [place] [address] documented in this encounter Visit Diagnoses Not on filedocumented in this encounter
--- OUTSIDE RECORDS SUMMARY | 2025-08-26 12:12 | XMS_ITS | Encounter Summary ---
Author Organization [facility] Address [address] [place] [address] Care Team Providers Care Cement Production Plant Operator Name Role Phone Unavailable Primary Care Provider Unavailabl e Encounter Details Date Type Department Care Team (Late st Contact Info) Description 08/21/2025 External Device Data ST[facility] ABSTRACTION Provider, Abstract NO ADDRESS ON FILE Social History Tobacco Use Types Packs/Day Years Used Date Smoking Tobacco: Never Assessed Comments Unknown Sex and Gender Information Value Date Recorded Sex Assigned at Not on file Legal Sex Female 2:51 AM NETWORK ADMINISTRATOR Gender Identity Not on file Sexual Orientation Not on file documented as of this encounter Plan of Treatment Not on file documented as of this encounter Visit Diagnoses Not on filedocumented in this encounter
--- OUTSIDE RECORDS SUMMARY | 2025-08-26 12:12 | XMS_ITS | Clinical Summary ---
Author Organization [facility] Address [address] [address] Phone Care Team Providers Care Shadowgraph Operator Name Role Phone Unavailable Primary Care Provider Unavailabl e Encounters Date Type Department Care Team Description 08/21/2025 External Device Data STL ABSTRACTION Provider, Abstract 08/08/2025 1:25 AM ALMOND HULLER - 08/08/2025 11:59 PM ALMOND HULLER Hospital Encounter [facility] [address] [phone] [facility] Discharge Disposition: [facility] [place] 07/10/2025 External Device Data STL ABSTRACTION Provider, Abstract 07/10/2025 External Device Data ST[facility] ABSTRACTION Provider, Abstract 07/10/2025 External Device Data STL ABSTRACTION Provider, Abstract 06/29/2025 12:20 AM CDT - 06/29/2025 11:59 PM CDT Hospital Encounter [address] [phone] [facility] Discharge Disposition: Home or Self Care from Last 3 Months Social History Tobacco Use Types Packs/Day Years Used Date Smoking Tobacco: Never Assessed Comments Unknown Sex and Gender Information Value Date Recorded Sex Assigned at Not on file Legal Sex Female 2:51 AM ALMOND HULLER Gender Identity Not on file Sexual Orientation Not on file Plan of Treatment Health Maintenance Due Date Last Done Comments DTAP/TDAP/TD VACCINES (1 - Tdap) 1969 PNEUMOCOCCAL VACCINE 50+ YEA RS (1 of 2 - PCV) 1969 BREAST CANCER SCREENING 1990 COLORECTAL SCREENING 1995 Colorectal Cancer Screening 1995 FIT-DNA Q 3 years 1995 FIT/FOBT Q 1 year 1995 Flex Sig/CT Colonography Q 5 years 1995 RSV VACCINE (60+ or ) (1 - Risk 50-74 years 1-dose series) 2000 ZOSTER VACCINE (1 of 2) 2000 OSTEOPOROSIS SCREENING 2015 INFLUENZA VACCINE (#1) 2025 COVID-19 Vaccine ( season) 2025, 10/30/2020 Insurance [facility] [place] [address] [facility] Daniel [facility]
--- OUTSIDE RECORDS SUMMARY | 2025-08-26 12:12 | XMS_ITS | Encounter Summary ---
Author Organization [facility], [facility] Address [address] [place] [address] Phone Care Team Providers Care Ship Loader Name Role Phone Unavailable Primary Care Provider Unavailabl e Encounter Details Date Type Department Care Team (Late st Contact Info) Description 08/25/2025 Orders Only [facility], [facility] [address] [place] [address] Macho Witt MD [address] [place] [address] Social History Tobacco Use Types Packs/Day Years Used Date Smoking Tobacco: Never Assessed Comments Unknown Sex and Gender Information Value Date Recorded Sex Assigned at Not on file Legal Sex Female 2:37 PM EST Gender Identity Not on file Sexual Orientation Not on file documented as of this encounter Plan of Treatment Not on file documented as of this encounter Procedures Procedure Name Priority Date/Time Associated Diagnosis Comments ALBUMIN Routine 08/25/2025 documented in this encounter Results * (ABNORMAL) Albumin (08/25/2025) Albumin 3.4(L) 3.6 - 5.1 g/dL [facility] 08/25/2025 08/25/2025 7:4 2 AM PRESIDENT COLLEGE [employer] UNIVERSITY Narrative Resulting Agency Comment Performing Organization Information: Site ID: [place] Name: [facility] Address: [address] [address] Director: Jovanna Alvarado MD Macho Witt MD LAB BLOOD ORDERABLES Final Result [facility] [address] [address] documented in this encounter Visit Diagnoses Not on filedocumented in this encounter
--- OUTSIDE RECORDS SUMMARY | 2025-08-26 12:12 | XMS_ITS | Clinical Summary ---
Author Organization [employer] Address [address] [facility] Attn: Epic Prelude ADT [place] [address] Care Team Providers Care Flame Cutting Machine Operator Helper Name Role Phone Unavailable Primary Care Provider Unavailabl e Social History Tobacco Use Types Packs/Day Years Used Date Smoking Tobacco: Never Assessed Comments Unknown Sex and Gender Information Value Date Recorded Sex Assigned at Not on file Legal Sex Female 3:41 AM LEISURE TRAVEL AGENT Gender Identity Not on file Sexual Orientation [...]
--- NOTE | 2025-08-26 12:26 | ECG_ITS ---
[facility] 2025-08[facility]26 Pat Name: Karina Estes Department: Room: Gender: Female Core Maker Helper: : 1950 Requested By: Bolivar Mujica Order Number: [id number] Reading MD: JOE SEPULVEDA Measurements Intervals [place] Rate: 117 P: 0 [place]: 0 QRS: 41 QRSD: 74 T: -41 QT: 342 QTc: 478 Interpretive Statements ATRIAL FIBRILLATION WITH RAPID VENTRICULAR RESPONSE WITH ABERRANT CONDUCTION OR VENTRICULAR PREMATURE COMPLEXES NONSPECIFIC ST & T-WAVE ABNORMALITY Compared to ECG 08/09/2025 09:09:34 Ventricular premature complex(es) now present Aberrant conduction of supraventricular beat(s) now present Possible ischemia no longer present T-wave abnormality still present Electronically Signed On 08-26-2025 22:52:59 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
[2025-08-26 13:34] LABS: Hematocrit 28.4 % (36-47); Hemoglobin 8.50 g/dL (11.27-16.99); Mean Corpuscular HGB Conc 29.9 g/dL (30-55); Mean Corpuscular Hemoglobin 29.3 pg (27-33); Mean Corpuscular Volume 97.9 fl (85-98); Nucleated Red Blood Cells % 0 %; Platelet Count 421 10^3/cmm (157-399); Red Blood Count 2.90 10^6/uL (3.85-5.65); White Blood Count 8.59 10^3/uL (3.29-11.43)
[2025-08-26 13:54] LABS: Alanine Aminotransferase 23 U/L (0-33); Albumin Level 3.2 g/dL (3.5-5.2); Alkaline Phosphatase 264 U/L (35-105); Anion Gap 17.0 (5-19); Aspartate Amino Transferase 33 U/L (0-32); Blood Urea Nitrogen 13 mg/dL (8-23); Calcium 9.5 mg/dL (8.5-10.5); Carbon Dioxide 27 mmol/L (22-29); Chloride 94 mmol/L (98-107); Globulin 3.0 g/dL (1.3-4.6); Glucose 105 mg/dL (65-115); Osmolality Calculated 280 mOsm/kg (285-295); Potassium 3.0 mmol/L (3.5-5.1); Sodium 135 mmol/L (136-145); Total Protein 6.2 g/dL (6.6-8.7)
--- NOTE | 2025-08-26 14:17 | W.ED.ARRPALP ---
HPI - Arrhythmia/Palpitations General: Chief Complaint: Arrhythmia/Palpitations Stated Complaint: afib Time Seen by Provider: 08/26/25 13:43 Source: patient Mode of arrival: ambulatory Limitations: no limitations History of Present Illness: 74-year-old female who has a history of end-stage renal disease currently on dialysis goes Wednesday did go yesterday. Also with a history of A-fib hypertension. Patient is sent here due to her A-fib and concern to the alf that she had had some high blood pressures. Patient here states she feels completely normal she has no complaints she denies any pain anywhere Related Data Home Medications ?Medication ?Instructions ?Recorded ?Confirmed cyclobenzaprine 10 mg tablet 10 mg PO BEDTIME PRN muscle spasms 08/08/25 08/08/25 omeprazole 40 mg capsule,delayed 40 mg PO DAILY 08/08/25 08/08/25 release Previous Rx's ?Medication ?Instructions ?Recorded atorvastatin 10 mg tablet 10 mg PO QDAY #90 tabs 12/18/24 aripiprazole 2 mg tablet 2 mg PO DAILY #90 tabs 01/08/25 venlafaxine 75 mg tablet 225 mg (3 x 75 mg) PO DAILY #90 04/23/25 tabs hydrocodone 10 mg-acetaminophen 1 tab PO Q6H PRN pain (scale score 07/09/25 325 mg tablet 7-10) 30 days #120 tabs apixaban 2.5 mg tablet (Eliquis) 2.5 mg PO BID 30 days #60 tabs 08/17/25 budesonide 0.5 mg/2 mL suspension 0.5 mg (2 mL) inhalation 08/17/25 for nebulization BID.RESPIRATORY 90 days #360 mL calcitriol 0.25 mcg capsule 0.25 mcg PO DAILY 60 days #60 caps 08/17/25 diltiazem HCl 30 mg tablet 90 mg (3 x 30 mg) PO QID 60 days 08/17/25 #720 tabs docusate sodium 100 mg capsule 100 mg PO BID 60 days #120 caps 08/17/25 gabapentin 100 mg capsule 100 mg PO DAILY 60 days #60 caps 08/17/25 hydralazine 25 mg tablet 50 mg (2 x 25 mg) PO TID 60 days 08/17/25 #360 tabs ipratropium 0.5 mg-albuterol 3 mg 3 ml inhalation Q6H.RESP 90 days 08/17/25 (2.5 mg base)/3 mL nebulization #180 mL soln levalbuterol HCl 0.63 mg/3 mL 0.63 mg (3 mL) inhalation TID 60 08/17/25 solution for nebulization days #540 mL magnesium hydroxide 400 mg/5 mL 30 ml PO DAILY PRN Constipation 08/17/25 oral suspension (Milk of Magnesia) (see protocol) 60 days #355 mL metoprolol tartrate 50 mg tablet 25 mg (1/2 x 50 mg) PO BID 90 days 08/17/25 #90 tabs ondansetron HCl (PF) 4 mg/2 mL 4 mg (2 mL) IVP Q6H PRN vomiting, 08/17/25 injection solution or N/V if npo 60 days #50 mL Allergies Allergy/AdvReac Type Severity Reaction Status Date / Time Sulfa (Sulfonamide Allergy Mild Dizzy Verified 08/26/25 12:31 Antibiotics) Latex, Natural Rubber Allergy ADR/ALGY-Fl Verified 08/26/25 12:31 ushing [facility]: Medical History (Updated 08/26/25 @ 14:18 by Bolivar Mujica MD) Vitamin D deficiency DJD (degenerative joint disease), cervical DDD (degenerative disc disease), thoracic Vitamin B12 deficiency CKD stage 3b, GFR 30-44 ml/min Anemia in chronic kidney disease Anxiety Nicotine dependence, cigarettes, uncomplicated Chronic gastritis without bleeding Hypomagnesemia COPD (chronic obstructive pulmonary disease) Hyponatremia Encounter for chronic pain management legacy patient from pain clinic; on hydrocodone for chronic back pain Chronic lower back pain DDD w/ peripheral neuropathy Pain management contract signed Major depression, chronic Hypercholesteremia HTN (hypertension) Surgical History History of rectal surgery 8.16 for rectal prolapse Hx of colonoscopy with polypectomy 7.7.22 tubular adenoma--f/u 5 yrs--Dr. Julian Parikh Hx of cervical spine surgery anterior cervical fusion 2008 Hx of total hysterectomy with removal of both tubes and ovaries Hx of appendectomy Family History Sister Rheumatoid arthritis Grandmother Colon cancer Social History Smoking and tobacco/nicotine status: current every day tobacco/nicotine user cigarettes Packs smoked per day: 1 Quit status (tobacco/nicotine): not considering quitting Second hand smoke exposure: Yes Alcohol intake: never Substance/Drug Use: never Household members: spouse and other Details: granddaughter Housing: House Marital status: Marital status details: no living children--son in MVA; daughter of COVID Number of children: 2 Highest education level completed: High School Graduate Current occupational status: retired 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 Physical Exam Const: COMMON NORMALS: no acute distress, patient oriented x3 and healthy appearing HENMT: COMMON NORMALS: normocephalic and atraumatic HEAD & SCALP: normocephalic and atraumatic Neck/C-Spine: COMMON NORMALS: full ROM and supple Chest: COMMONS NORMALS: normal inspection of the chest Resp: COMMON NORMALS: normal respiratory effort, No retractions, No use of accessory muscles and clear to auscultation bilaterally AUSCULTATION: clear to auscultation bilaterally Cardio: COMMON NORMALS: regular rate and No murmurs present (Cardio) RATE: regular rate RHYTHM: abnormal rhythm irregularly irregular GI: COMMON NORMALS: Normal to inspection, nondistended, normoactive bowel sounds present, Soft to palpation, non-tender and no masses PALPATION: Yes Soft to palpation Extremity: COMMON NORMALS: normal to inspection and full ROM Neuro: COMMON NORMALS: patient oriented x3, moves all extremities and no focal motor deficits Psych: COMMON NORMALS: mental status grossly normal, Normal thought process present and cooperative THOUGHT PROCESS: Normal thought process present Skin: COMMON NORMALS: no rashes or lesions noted and no wounds GENERAL SKIN EXAM: no rashes or lesions noted Course Vital Signs: Vital signs: Vital Signs Temperature 98.4 F 08/26/25 12:21 Pulse Rate 80 08/26/25 14:11 Respiratory Rate 23 H 08/26/25 14:11 Blood Pressure 153/113 08/26/25 14:11 Pulse Oximetry 93 08/26/25 14:11 Oxygen Delivery Me thod Nasal Cannula 08/26/25 14:11 Oxygen Flow Rate 4 08/26/25 14:11 MDM - Arrhythmia/Palpitations Medical Decision Making Patient presents here from alf with A-fib with RVR along with hypertension. Patient has no complaints here her heart rate has slowed here is currently 85 did give her 1 dose of oral metoprolol has no significant hypertension her labs here at her baseline I feel she is stable for discharge back to the alf did interpret her EKG at 1226 heart rate was 117 A-fib with RVR QRS 74 QTc 412 Lab Data I reviewed the patient's lab results. 08/26/25 13:22 08/26/25 13:22 Laboratory Results WBC 8.59 10^3/uL (3.29-11.43) 08/26/25 13:22 RBC 2.90 10^6/uL (3.85-5.65) L 08/26/25 13:22 Hgb 8.50 g/dL (11.27-16.99) L 08/26/25 13:22 Hct 28.4 % (36-47) L 08/26/25 13:22 MCV 97.9 fl (85-98) 08/26/25 13:22 MCH 29.3 pg (27-33) 08/26/25 13:22 MCHC 29.9 g/dL (30-55) L 08/26/25 13:22 RDW 16.7 % (12.1-15.1) H 08/26/25 13:22 Plt Count 421 10^3/cmm (157-399) H 08/26/25 13:22 MPV 10.4 fL (7.4-10.4) 08/26/25 13:22 Neut % (Auto) 70.6 % 08/26/25 13:22 Lymph % (Auto) 17.5 % 08/26/25 13:22 [place] % (Auto) 8.7 % 08/26/25 13:22 Eos % (Auto) 1.5 % 08/26/25 13:22 Baso % (Auto) 1.4 % 08/26/25 13:22 Neut # (Auto) 6.06 10^3/uL (1.8-7.7) 08/26/25 13:22 Lymph # (Auto) 1.5 10^3/uL (0.8-4.8) 08/26/25 13:22 [place] # (Auto) 0.8 10^3/uL (0.2-0.9) 08/26/25 13:22 Eos # (Auto) 0.1 10^3/uL (0.0-0.8) 08/26/25 13:22 Baso # (Auto) 0.1 10^3/uL (0.0-0.1) 08/26/25 13:22 Nucleated RBC % (auto) 0 % 08/26/25 13:22 Nucleated RBCs # 0.0 /100WBC 08/26/25 13:22 Sodium 135 mmol/L (136-145) L 08/26/25 13:22 Potassium 3.0 mmol/L (3.5-5.1) L 08/26/25 13:22 Chloride 94 mmol/L (98-107) L 08/26/25 13:22 Carbon Dioxide 27 mmol/L (22-29) 08/26/25 13:22 Anion Gap 17.0 (5-19) 08/26/25 13:22 BUN 13 mg/dL (8-23) 08/26/25 13:22 Creatinine 3.2 mg/dL (0.5-0.9) H 08/26/25 13:22 GFR Calculation Not Reportable 08/26/25 13:22 Glucose 105 mg/dL (65-115) 08/26/25 13:22 Calculated Osmolality 280 mOsm/kg (285-295) L 08/26/25 13:22 Calcium 9.5 mg/dL (8.5-10.5) 08/26/25 13:22 Total Bilirubin 0.5 mg/dL (0.15-1.2) 08/26/25 13:22 AST 33 U/L (0-32) H 08/26/25 13:22 ALT 23 U/L (0-33) 08/26/25 13:22 Alkaline Phosphatase 264 U/L (35-105) H 08/26/25 13:22 Total Protein 6.2 g/dL (6.6-8.7) L 08/26/25 13:22 Albumin 3.2 g/dL (3.5-5.2) L 08/26/25 13:22 Globulin 3.0 g/dL (1.3-4.6) 08/26/25 13:22 No radiology studies performed this visit Discharge Plan Discharge Patient Disposition: Home Clinical Impression: Atrial fibrillation HTN (hypertension) Qualifiers: Hypertension type: primary hypertension Qualified Code(s): I10 - Essential (primary) hypertension Condition: Stable Prescriptions: No Action atorvastatin 10 mg tablet 10 mg PO QDAY Qty: 90 2RF aripiprazole 2 mg tablet 2 mg PO DAILY Qty: 90 3RF venlafaxine 75 mg tablet 225 mg PO DAILY Qty: 90 3RF hydrocodone-acetaminophen 10-325 mg tablet 1 tab PO Q6H PRN (Reason: pain (scale score 7-10)) 30 Days Qty: 120 0RF cyclobenzaprine 10 mg tablet 10 mg PO BEDTIME PRN (Reason: muscle spasms) omeprazole 40 mg capsule,delayed release(DR/EC) 40 mg PO DAILY ipratropium-albuterol 0.5 mg-3 mg(2.5 mg base)/3 mL Solution For Nebulization 3 ml inhalation Q6H.RESP 90 Days Qty: 180 0RF hydralazine 25 mg Tablet 50 mg PO TID 60 Days Qty: 360 0RF magnesium hydroxide [Milk of Magnesia] 400 mg/5 mL Suspension 30 ml PO DAILY PRN (Reason: Constipation (see protocol)) 60 Days Qty: 355 0RF docusate sodium 100 mg Capsule 100 mg PO BID 60 Days Qty: 120 0RF gabapentin 100 mg Capsule 100 mg PO DAILY 60 Days Qty: 60 0RF diltiazem HCl 30 mg Tablet 90 mg PO QID 60 Days Qty: 720 0RF ondansetron HCl (PF) 4 mg/2 mL Solution 4 mg IVP Q6H PRN (Reason: vomiting, or N/V if npo) 60 Days Qty: 50 0RF budesonide 0.5 mg/2 mL Suspension For Nebulization 0.5 mg inhalation BID.RESPIRATORY 90 Days Qty: 360 0RF calcitriol 0.25 mcg Capsule 0.25 mcg PO DAILY 60 Days Qty: 60 0RF Eliquis 2.5 mg tablet 2.5 mg PO BID 30 Days Qty: 60 0RF levalbuterol HCl 0.63 mg/3 mL solution for nebulization 0.63 mg inhalation TID 60 Days Qty: 540 0RF metoprolol tartrate 50 mg tablet 25 mg PO BID 90 Days Qty: 90 3RF Discharge Orders: Discharge ED (Routine); Ordered 08/26/25 Ordered By: Bolivar Mujica Referrals: Marizol Rivera MD [Primary Care Provider, Family Practice] - 4-7 days Discharge Diet: Advance as tolerated Discharge Activity: Resume usual activity Patient Instructions: A-fib (Atrial Fibrillation) (ED), Hypertension (ED) Print Language: Sami Coding Level of Care Code ED 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
== END 2025-08-26 17:43 | disposition home or self-care (01) ==
PROVIDERS: Emergency Provider Emergency Medicine; PCP Family Medicine
DX: I48.91 Unspecified atrial fibrillation (principal); Z79.01 Long term (current) use of anticoagulants; F17.210 Nicotine dependence, cigarettes, uncomplicated; J44.9 Chronic obstructive pulmonary disease, unspecified; I12.9 Hypertensive chronic kidney disease with stage 1 through stage 4 chronic kidney disease, or unspecified chronic kidney disease; N18.32 Chronic kidney disease, stage 3b
CPT/HCPCS: 36415; 80053; 85025; 93005; 99284; J9999